=== PATIENT | female | born 1950 | race Caucasian/White ===

== ENCOUNTER → 2017-11-15 07:30 | Outpatient (CLI) | payer MEDICARE, OTHER, SELFPAY ==
--- NOTE | 2017-11-15 07:35 | HPBI_ITS ---
MAMMOGRAPHY - BILATERAL SCREENING REASON FOR EXAM: Female, 66 years old. Routine annual screening examination. PERTINENT HISTORY: Personal history of breast cancer. Prior left mastectomy and chemotherapy. Sister with breast cancer. TECHNIQUE: Digital bilateral breast dallin (3D mammographic acquisition) in the CC and MLO projections. 2-D mediolateral oblique (MLO) and craniocaudad (CC) views of both breasts were obtained. CAD: Full Field Digital Mammography with Computer Added Detection was performed. COMPARISON: Comparison is made with prior examination dated August 31, 2016. FINDINGS: Breast Composition: The breasts are heterogeneously dense, which may obscure small masses. There are no dominant masses or suspicious calcifications. No other significant abnormalities are identified. There has been no significant change since the prior study. BI/UNILAT RT SCRN W/CAD IMPRESSION: Stable bilateral screening mammogram. Yearly follow-up mammogram recommended. (A) ASSESSMENT CATEGORY: BIRADS Category 1: Negative. A letter regarding these results will be sent to the patient by the facility within 30 days. Approximately 10% of breast cancers are not detected by mammography. A normal mammogram should not delay biopsy of a clinically suspicious abnormality. [id number] Electronically Signed: Ben White MD at 8:16 EST Tel [phone], Service support ,
== END ==
PROVIDERS: Family Provider Family Medicine; PCP Family Medicine; Visit Provider Nurse Practitioner Family
DX: Z12.31 Encounter for screening mammogram for malignant neoplasm of breast (principal); Z85.3 Personal history of malignant neoplasm of breast
CPT/HCPCS: 77061; 77067; G0279

== ENCOUNTER → 2017-11-16 10:39 | Outpatient (CLI) | payer MEDICARE, OTHER, SELFPAY ==
[2017-11-16 12:34] LABS: Color, Urine Yellow (Yellow); Glucose, Dipstick Normal (Normal); Ketone-Dipstick Negative (Negative); Leukocyte Esterase-Dipstick 25 /ul (Negative); Nitrite-Dipstick Negative (Negative); Occult Blood-Urine Negative /ul (Negative); Protein-Dipstick 30 mg/dl (Negative); Urine Bilirubin Dipstick Negative (Negative); Urine Clarity Clear (Clear); Urine Urobilinogen Normal (Normal)
[2017-11-16 13:05] LABS: T4 Free Direct 1.07 ng/dL (0.76-1.46); Thyroid Stim Hormone (TSH) 2.54 uIU/mL (0.358-3.74)
== END ==
PROVIDERS: Family Provider Family Medicine; PCP Family Medicine; Visit Provider Family Medicine
DX: E03.9 Hypothyroidism, unspecified (principal); R80.9 Proteinuria, unspecified
CPT/HCPCS: 36415; 81002; 84439; 84443

== ENCOUNTER → 2018-04-26 09:12 | Outpatient (CLI) | payer MEDICARE, OTHER, SELFPAY ==
[2018-04-26 09:55] LABS: CREATININE FINGERSTICK 0.8 mg/dL (0.55-1.02); EGFR FINGERSTICK > 60.0000 mL/min (>60)
--- NOTE | 2018-04-26 10:00 | MRI_ITS ---
STUDY: BILATERAL BREAST MR WITHOUT AND WITH CONTRAST REASON FOR EXAM: Female, 67 years old. Personal history of left breast cancer status post mastectomy. BRCA positive. TECHNIQUE: Multi-sequence multi-echo imaging of both breasts was performed with a dedicated breast coil. T1-weighted and T2-weighted images were performed before the administration of contrast. T1-weighted images were also performed after the administration of 6 mL of Gadavist contrast intravenously without complications. COMPARISON: Prior breast MRI dated April 06, 2017 and unilateral right mammogram dated November 15, 2017. FINDINGS: RIGHT BREAST: The breast tissue is fatty with no background enhancement. There are no abnormal enhancing masses or areas of non-mass enhancement in the right breast. LEFT BREAST: There are changes of mastectomy with no significant abnormality otherwise identified. There are no enlarged or abnormal lymph nodes. There is no abnormality in the visualized regions of the chest or liver. MRI/Breast w/o and/or W Cont Bilat IMPRESSION: Changes of left mastectomy with no other significant abnormality. CATEGORY: BIRADS Category 2: Benign. A letter regarding these results will be sent to the patient by the facility within 30 days. Electronically Signed: Jose Mnauel Christensen MD at 10:33 EDT , Service support ,
== END ==
PROVIDERS: Family Provider Family Medicine; PCP Family Medicine; Visit Provider Internal Medicine Medical Oncology
DX: C50.912 Malignant neoplasm of unspecified site of left female breast (principal); Z15.01 Genetic susceptibility to malignant neoplasm of breast
CPT/HCPCS: 77059; A9585; A4216; C8908

== ENCOUNTER → 2018-11-16 09:53 | Outpatient (CLI) | payer MEDICARE, OTHER, SELFPAY ==
--- NOTE | 2018-11-16 10:00 | BI_ITS ---
MAMMOGRAPHY - UNILATERAL SCREENING: RIGHT BREAST REASON FOR EXAM: Female, 67 years old. Routine annual screening examination (unilateral). PERTINENT HISTORY: Personal history of breast cancer. Sister with breast cancer. Prior left mastectomy and chemotherapy. TECHNIQUE: Digital unilateral breast dallin (3D mammographic acquisition) in the CC and MLO projections. 2-D mediolateral oblique (MLO) and craniocaudad (CC) views of both breasts were obtained. CAD: Full Field Digital Mammography with Computer Added Detection was performed. COMPARISON: Comparison is made with prior study dated November 15, 2017 and August 31, 2016. FINDINGS: Breast Composition: The breasts are heterogeneously dense, which may obscure small masses. There are no dominant masses or suspicious calcifications. No other significant abnormalities are identified. There has been no significant change since the prior study. BI/UNILAT RT SCRN W/CAD IMPRESSION: Stable unilateral screening mammogram. Yearly follow-up mammogram recommended. (A) ASSESSMENT CATEGORY: BIRADS Category 1: Negative. A letter regarding these results will be sent to the patient by the facility within 30 days. Approximately 10% of breast cancers are not detected by mammography. A normal mammogram should not delay biopsy of a clinically suspicious abnormality. [id number] Electronically Signed: Ben White, at 10:57 EST , Service support ,
== END ==
PROVIDERS: Family Provider Family Medicine; PCP Family Medicine; Referring Provider Nurse Practitioner Family
DX: Z12.31 Encounter for screening mammogram for malignant neoplasm of breast (principal); Z85.3 Personal history of malignant neoplasm of breast
CPT/HCPCS: 77061; 77063; 77067; G0279

== ENCOUNTER → 2019-05-02 09:04 | Outpatient (CLI) | payer MEDICARE, OTHER, SELFPAY ==
[2018-12-01 13:03] VITALS: BMI 25.3
--- NOTE | 2019-05-02 09:16 | MRI_ITS ---
STUDY: BILATERAL BREAST MR WITHOUT AND WITH CONTRAST REASON FOR EXAM: Female, 67 years old. Personal history of left breast cancer status post mastectomy. BRCA positive. TECHNIQUE: Multi-sequence multi-echo imaging of both breasts was performed with a dedicated breast coil. T1-weighted and T2-weighted images were performed before the administration of contrast. T1-weighted images were also performed after the administration of13 mL of Dotarem contrast intravenously without complications. COMPARISON: Prior breast MRI dated April 26, 2018 and unilateral right mammogram dated November 16, 2018. FINDINGS: RIGHT BREAST: The breast tissue is fatty with no background enhancement. There are no abnormal enhancing masses or areas of non-mass enhancement in the right breast. LEFT BREAST: There are changes of mastectomy with no significant abnormality otherwise identified. There are no enlarged or abnormal lymph nodes. There is no abnormality in the visualized regions of the chest or liver. MRI/Breast Unilateral W/O and W IMPRESSION: Changes of left mastectomy with no other significant abnormality. CATEGORY: BIRADS Category 2: Benign. A letter regarding these results will be sent to the patient by the facility within 30 days. Electronically Signed: Jose Manuel Christensen MD at 16:14 EDT , Service support ,
[2019-05-02 09:36] LABS: CREATININE FINGERSTICK 0.7 mg/dL (0.55-1.02); EGFR FINGERSTICK > 60.0000 mL/min (>60)
--- NOTE | 2019-05-02 10:27 | RAD_ITS ---
STUDY: X-RAY CHEST REASON FOR EXAM: Female, 68 years old. Follow-up studies should breast cancer chest x-ray TECHNIQUE: PA and lateral views of the chest. COMPARISON: None. FINDINGS: There is postoperative change in the left axilla. There is asymmetry of the breast tissue is status post left mastectomy. There is a focal density/blunted appearance of the right side cardiophrenic angle. There is no visualized focal consolidation or pleural effusion. There is no demonstrated pleural abnormality. Normal size heart. Normal mediastinum and bebo. Normal visualized pulmonary arteries. Normal visualized aortic arch and descending thoracic aorta. There are diffuse degenerative changes of the visualized thoracic spine. Normal visualized ribs, clavicles, and shoulders. There is no demonstrated abnormality of the visualized soft tissue structures of the upper abdomen. RAD/Chest PA and Lateral IMPRESSION: Focal density, blunted appearance of the right cardiophrenic angle which may represent a cardiac fat pad versus potential for mass or potentially a hiatal hernia. Given the clinical history recommend CT scan of the chest. Postoperative changes left axilla. Status post left mastectomy. Electronically Signed: Deonna Graves MD at 21:55 EDT Tel , Service support ,
== END ==
PROVIDERS: Family Provider Family Medicine; PCP Family Medicine; Referring Provider Internal Medicine Medical Oncology; Visit Provider Internal Medicine Medical Oncology
DX: Z15.01 Genetic susceptibility to malignant neoplasm of breast (principal); Z85.3 Personal history of malignant neoplasm of breast
CPT/HCPCS: 71046; 77048; A9575; A4216; C8905

== ENCOUNTER → 2019-08-15 09:13 | Outpatient (CLI) | payer MEDICARE, OTHER, SELFPAY ==
[2019-05-15 13:29] VITALS: BMI 25.3
[2019-08-15 13:20] LABS: Vitamin D,25 Hydroxy 70.6 ng/mL (29.95-100.01)
== END ==
PROVIDERS: Family Provider Family Medicine; PCP Family Medicine; Visit Provider Family Medicine
DX: E03.9 Hypothyroidism, unspecified (principal); E55.9 Vitamin D deficiency, unspecified; Z85.3 Personal history of malignant neoplasm of breast
CPT/HCPCS: 36415; 82306; 84439; 84443

== ENCOUNTER → 2019-11-20 | Outpatient (CLI) | payer MEDICARE, OTHER, SELFPAY ==
[2019-05-15 13:29] VITALS: BMI 25.3
--- NOTE | 2019-11-20 10:19 | BI_ITS ---
MAMMOGRAPHY - UNILATERAL SCREENING: RIGHT BREAST REASON FOR EXAM: Female, 69 years old. Routine annual screening examination (unilateral). PERTINENT HISTORY: Personal history of breast cancer. Prior left mastectomy. Sister with breast cancer. TECHNIQUE: Digital unilateral breast ricki (3D mammographic acquisition) in the CC and MLO projections. 2-D mediolateral oblique (MLO) and craniocaudad (CC) views of both breasts were obtained. CAD: Full Field Digital Mammography with Computer Added Detection was performed. COMPARISON: Comparison is made with prior examination dated November 16, 2018 and November 15, 2017. FINDINGS: Breast Composition: The breasts are heterogeneously dense, which may obscure small masses. The patient is status post left mastectomy. There are no dominant masses or suspicious calcifications. No other significant abnormalities are identified. There has been no significant change since the prior study. BI/SCREEN MAMM (CAD) W/RICKI UNI R IMPRESSION: Stable unilateral screening mammogram. Yearly follow-up mammogram recommended. (A) ASSESSMENT CATEGORY: BIRADS Category 1: Negative. A letter regarding these results will be sent to the patient by the facility within 30 days. Approximately 10% of breast cancers are not detected by mammography. A normal mammogram should not delay biopsy of a clinically suspicious abnormality. [id number] Electronically Signed: Ben White, at 12:32 EST , Service support ,
== END | disposition home or self-care (01) ==
LOC: OPBI 10:11
PROVIDERS: Family Provider Family Medicine; PCP Family Medicine; Referring Provider Nurse Practitioner Family; Visit Provider Nurse Practitioner Family
DX: Z12.31 Encounter for screening mammogram for malignant neoplasm of breast (principal)
CPT/HCPCS: 77063; 77067

== ENCOUNTER → 2020-07-08 | Outpatient (CLI) | payer MEDICARE, OTHER, SELFPAY ==
[2020-01-22 10:54] VITALS: BMI 26.4
--- NOTE | 2020-07-08 09:15 | MRI_ITS ---
STUDY: BILATERAL BREAST MR WITHOUT AND WITH CONTRAST REASON FOR EXAM: Female, 69 years old. History of left breast cancer with abnormal gene mutation. Left mastectomy in 2001. Follow-up. TECHNIQUE: Multi-sequence multi-echo imaging of both breasts was performed with a dedicated breast coil. T1-weighted and T2-weighted images were performed before the administration of contrast. T1-weighted images were also performed after the administration of IV Dotarem 13ml without complications. COMPARISON: Screening mammogram dated 11/20/2019 and prior breast MRI dated 05/02/2019 FINDINGS: RIGHT BREAST: The breast tissue is scattered fibroglandular densities with no background enhancement. There are no abnormal enhancing masses or areas of non-mass enhancement in the right breast. LEFT BREAST: Left mastectomy. No enhancing masses in the residual soft tissues. There are no enlarged or abnormal lymph nodes. There is no abnormality in the visualized regions of the chest or liver. MRI/Breast Bilateral W/O and W IMPRESSION: Left mastectomy with no abnormality in the remaining soft tissues. No abnormality of the right breast. CATEGORY: BIRADS Category 2: Benign. A letter regarding these results will be sent to the patient by the facility within 30 days. Electronically Signed: Jose Manuel Christensen MD at 13:33 EDT , Service support ,
--- NOTE | 2020-07-08 09:15 | RAD_ITS ---
HISTORY: History of breast cancer. Double mastectomy 18 years ago. No trouble since. EXAM: XR Chest 2 Views: COMPARISON: May 02, 2019 FINDINGS: # of images incl. paperwork: 2 Hyperlucent left lung likely related to mastectomy is unchanged. Left chest surgical clips remain. Calcific plaque within the aortic arch is mild. Tortuosity descending thoracic aorta similar. Scoliosis to the thoracic and lumbar spine remains. Lungs are clear. Heart is not enlarged. No acute osseous pathology perceived. Pulmonary vascularity is distinct. No effusions. RAD/Chest PA and Lateral IMPRESSION: No acute cardiopulmonary disease. No change.. at 0406 Reported and signed by: Fidel De Leon MD Electronically Signed: Fidel De Leon MD at 4:05 EDT Tel , Service support ,
[2020-07-08 10:41] LABS: CREATININE FINGERSTICK < 0.6 mg/dL (0.55-1.02); EGFR FINGERSTICK > 60.0000 mL/min (>60)
== END | disposition home or self-care (01) ==
LOC: MRI 09:15
PROVIDERS: PCP Family Medicine; Referring Provider Internal Medicine Medical Oncology; Visit Provider Internal Medicine Medical Oncology
DX: Z85.3 Personal history of malignant neoplasm of breast (principal); Z15.02 Genetic susceptibility to malignant neoplasm of ovary; Z15.09 Genetic susceptibility to other malignant neoplasm; Z15.01 Genetic susceptibility to malignant neoplasm of breast; Z90.10 Acquired absence of unspecified breast and nipple; Z98.890 Other specified postprocedural states
CPT/HCPCS: 71046; 77049; A9575; C8908

== ENCOUNTER → 2020-08-14 09:32 | Outpatient (CLI) | payer MEDICARE, OTHER, SELFPAY ==
[2020-07-10 13:50] VITALS: BMI 25.4
[2020-08-14 12:52] LABS: T4 Free Direct 1.22 ng/dL (0.76-1.46); Thyroid Stim Hormone (TSH) 3.88 uIU/mL (0.358-3.74)
== END ==
PROVIDERS: PCP Family Medicine; Visit Provider Family Medicine
DX: E03.9 Hypothyroidism, unspecified (principal); E55.9 Vitamin D deficiency, unspecified
CPT/HCPCS: 36415; 82306; 84439; 84443

== ENCOUNTER → 2020-08-21 07:45 | Outpatient (CLI) | payer MEDICARE, OTHER, SELFPAY ==
[2020-07-10 13:50] VITALS: BMI 25.4
--- NOTE | 2020-08-21 07:47 | CDU_ITS ---
Reason For Study: Bilateral carotid stenosis Rt. Velocities/BP Lt. Velocities/BP Prox CCA 73.4/14.7 cm/sec. Prox CCA 69.2/17.7 cm/sec. Mid CCA 68.2/16 cm/sec. Mid CCA 68.3/19.5 cm/sec. Dist CCA 64.3/14.7 cm/sec. Dist CCA 60.5/16.8 cm/sec. Prox ICA 53.1/14.6 cm/sec. Prox ICA 56.1/13.3 cm/sec. Mid ICA 66.2/23.4 cm/sec. Mid ICA 65.7/22.1 cm/sec. Dist ICA 86/28.9 cm/sec. Dist ICA 104.7/38.9 cm/sec. Rt. ICA/CCA = 1.26. Lt. ICA/CCA = 1.53. Prox ECA 91.7/8.2 cm/sec. Prox ECA 62.2/9 cm/sec. Rt. Vert. 26.5/6.6 cm/sec. Lt. Vert. 44.7/14.5 cm/sec. Right Extracranial There is homogeneous, smooth atherosclerotic plaque noted in the right common carotid artery. There is heterogeneous, irregular atherosclerotic plaque noted in the right internal carotid artery. There is intimal thickening but no significant atherosclerotic plaque noted in the right external carotid artery. Antegrade flow is noted in the right vertebral artery. Left Extracranial There is homogeneous, smooth atherosclerotic plaque noted in the left common carotid artery. There is homogeneous, smooth atherosclerotic plaque noted in the left internal carotid artery. Left ICA distal is tortuous. There is intimal thickening but no significant atherosclerotic plaque noted in the left external carotid artery. Antegrade flow is noted in the left vertebral artery. Procedure Carotid Duplex [id number]. This is a Carotid Duplex examination using B-mode, color flow and specral Doppler. Exam performed in department. Interpretation Summary Mild (<50%) stenosis right extracranial internal carotid. Mild (<50%) stenosis left extracranial internal carotid. Flow within the vertebral arteries is antegrade bilaterally. Ordering Physician: Isra Leach Referring Physician: Isra Leach Performed By: Celina Kaur RVT
== END ==
PROVIDERS: PCP Family Medicine; Referring Provider Family Medicine; Visit Provider Family Medicine
DX: I65.23 Occlusion and stenosis of bilateral carotid arteries (principal)
CPT/HCPCS: 93880

== ENCOUNTER → 2020-09-30 15:53 | Outpatient (CLI) | payer MEDICARE, OTHER, SELFPAY ==
[2020-07-10 13:50] VITALS: BMI 25.4
[2020-09-30 17:43] LABS: Thyroid Stim Hormone (TSH) 0.73 uIU/mL (0.358-3.74)
== END ==
PROVIDERS: PCP Family Medicine; Visit Provider Family Medicine
DX: E03.9 Hypothyroidism, unspecified (principal)
CPT/HCPCS: 36415; 84443

== ENCOUNTER → 2021-07-07 10:17 | Outpatient (CLI) | payer MEDICARE, OTHER, SELFPAY ==
[2020-07-10 13:50] VITALS: BMI 25.4
--- NOTE | 2021-07-07 10:20 | MRI_ITS ---
STUDY: BILATERAL BREAST MR WITHOUT AND WITH CONTRAST REASON FOR EXAM: Female, 70 years old. History of left breast cancer status post mastectomy. Follow-up. TECHNIQUE: Multi-sequence multi-echo imaging of both breasts was performed with a dedicated breast coil. T1-weighted and T2-weighted images were performed before the administration of contrast. T1-weighted images were also performed after the administration of IV 14ml Dotarem without complications. COMPARISON: Bilateral breast MRI with contrast dated 07/08/2020 and right breast mammogram dated 11/20/2019. FINDINGS: RIGHT BREAST: The breast tissue is scattered fibroglandular densities with no background enhancement. There are no abnormal enhancing masses or areas of non-mass enhancement in the right breast. LEFT BREAST: Left mastectomy with metallic artifact at the mastectomy site. There are no enlarged or abnormal lymph nodes. There is no abnormality in the visualized regions of the chest or liver. MRI/Breast Bilateral W/O and W IMPRESSION: Changes of left mastectomy with no other abnormality. CATEGORY: BIRADS Category 2: Benign. A letter regarding these results will be sent to the patient by the facility within 30 days. Electronically Signed: Jose Manuel Christensen MD at 14:07 EDT , Service support ,
[2021-07-07 11:11] LABS: CREATININE FINGERSTICK < 0.6 mg/dL (0.55-1.02); EGFR FINGERSTICK > 60.0000 mL/min (>60)
== END ==
PROVIDERS: PCP Family Medicine; Referring Provider Internal Medicine Medical Oncology; Visit Provider Internal Medicine Medical Oncology
DX: C50.912 Malignant neoplasm of unspecified site of left female breast (principal); Z15.01 Genetic susceptibility to malignant neoplasm of breast
CPT/HCPCS: 77049; A9575; A4216; C8908

== ENCOUNTER 2021-09-01 11:08 | Emergency (ER) | payer MEDICARE, OTHER, SELFPAY ==
[2021-09-01 11:08] VITALS: BP 152/72; PULSE 69; RESP 18; TEMP 36.6; O2SAT 89; BMI 26.9
--- NOTE | 2021-09-01 11:13 | EKG12_ITS ---
Test Reason : SOB Blood Pressure : / mmHG Vent. Rate : 063 BPM Atrial Rate : 063 BPM P-R Int : 154 ms QRS Dur : 088 ms QT Int : 412 ms P-R-T Axes : 046 034 059 degrees QTc Int : 421 ms Normal sinus rhythm Poor R wave progression Nonspecific ST-segment abnormality Confirmed by JUWAN NATH, KATIE ([id number]), make up editor RACHEL HILL ([id number]) on 09/03/2021 11:41:53 AM Referred By: KIMBERLY Confirmed By:KATIE ECHEVERRIA MD
--- NOTE | 2021-09-01 12:09 | RAD_ITS ---
STUDY: X-RAY CHEST REASON FOR EXAM: Female, 70 years old. SOB TECHNIQUE: Single AP portable view of the chest. COMPARISON: Comparison is made with prior study 07/08/2020. FINDINGS: Surgical clips are seen in the left axillary region. The patient is status post left mastectomy. Bibasilar infiltrates worse in the left lung. There is no demonstrated pleural abnormality. Normal size heart. Normal mediastinum and bebo. Normal visualized pulmonary arteries. Normal visualized aortic arch and descending thoracic aorta. Normal visualized thoracic spine. Normal visualized ribs, clavicles, and shoulders. There is no demonstrated abnormality of the visualized soft tissue structures of the upper abdomen. RAD/Chest 1 View (Portable) IMPRESSION: Bibasilar infiltrates worse in the left lung. Pneumonitis associated with Covid should be ruled out. Electronically Signed: Ben White MD at 12:30 EST , Service support ,
[2021-09-01 13:01] LABS: Absolute Lymphocyte Count 0.44 X10^3/uL (0.83-4.51); Absolute Neutrophil Count 7.5 X10^3/uL (2.0-7.7); Basophil# 0.01 X10^3/uL; Basophil% 0.1 % (0-1); Hematocrit 38.6 % (37-47); Hemoglobin 12.8 g/dL (12.0-15.0); Lymphocyte # 0.44 X10^3/ul (0.83-4.51); Lymphocyte % 5.3 % (19-41); Mean Corp Hgb Conc 33.2 g/dL (32-36); Mean Corpuscular Hgb 29.4 pg (27.0-32.0); Mean Corpuscular Volume 88.7 fL (81-99); Mean Platelet Vol. 9.1 fl (6.2-12.0); Monocyte# 0.28 X10^3/uL; Monocyte% 3.4 % (0-10); NRBC Flagged by Analyzer 0 % (0-5); Neutrophil # 7.45 X10^3/uL (2.7-7.7); Neutrophil % 90.4 % (47-70); POSITIVE DIFFERENTIAL YES; Platelet Count 286 K/mm3 (150-450); RBC Distribution Width CV 13.6 % (11.6-14.6); RBC Distribution Width SD 44.5 fl (35.1-43.9); Red Blood Count 4.35 M/mm3 (4.2-5.4); White Blood Count 8.3 K/mm3 (4.4-11.0)
[2021-09-01 13:02] LABS: Differential Indicated SCAN CRITERIA MET
[2021-09-01 13:09] LABS: Anion Gap 8 (5-15); BUN 19 mg/dL (7-18); BUN/Creat Ratio 18.1 RATIO (10-20); Calcium,Total 9.1 mg/dL (8.5-10.1); Chloride 101 mmol/L (98-107); Creatinine, Serum 1.05 mg/dL (0.55-1.02); EST Glomerular Filtration Rate 55 mL/min (>60); Est Glom Filt Rate - Afr Amer 67 mL/min (>60); Estimated Creatinine Clearance 41.83 ml/min; Glucose 140 mg/dL (74-106); Potassium 3.7 mmol/L (3.5-5.1); Sodium Level 136 mmol/L (136-145)
[2021-09-01 13:19] VITALS: BP 152/63; PULSE 66; RESP 23; O2SAT 94; O2SAT 95
--- NOTE | 2021-09-01 13:50 | CT_ITS ---
STUDY: CTA CHEST REASON FOR EXAM: Female, 70 years old. Sob, covid. Left breast cancer with left mastectomy. RADIATION DOSAGE (If Supplied By Facility): CTDIvol = ( 5.42 ) mGy, DLP = ( 198.16 ) mGycm TECHNIQUE: The examination was performed with the intravenous administration of IV 100mL Isovue-370. Post-processing of the angiographic images was performed, with multiplanar reformation and 3D reconstruction. Individualized dose optimization techniques were used for this CT. COMPARISON: Comparison is made with prior chest radiograph done earlier today. FINDINGS: Normal enhancement of the main pulmonary artery and right and left pulmonary arteries. Normal enhancement of the bilateral peripheral pulmonary arteries. There is no demonstrated pulmonary embolism. Normal thoracic aorta and visualized great vessels. There is no demonstrated aortic dissection. Normal heart and pericardium. Normal mediastinum. Normal hilar regions. Normal visualized trachea and bronchi. The lungs are well expanded. Patchy infiltrate in the upper lobes. Patchy infiltrates also seen in the lower lobes as well as the right middle lobe and lingular segment of the left upper lobe. Findings are in keeping with pneumonitis associated with Covid. Normal pleura. Normal chest wall structures. There are degenerative changes of thoracic spine. Normal visualized upper abdomen. CT/CTA Chest W/WO Contrast IMPRESSION: No evidence of pulmonary embolism. Bilateral pulmonary infiltrates worse in the lower lobes. Findings are in keeping with pneumonitis associated with Covid. Electronically Signed: Ben White MD at 14:43 EST , Service support ,
--- NOTE | 2021-09-01 13:52 | EX.ED.DYSGE1 ---
HPI History of Present Illness Chief Complaint: Shortness of Breath Informant: patient Onset/Context/Timing Onset: Weeks Context: Gradual Onset Current Severity: Moderate Maximum Severity: Moderate Narrative Narrative: Patient presents via EMS secondary to increase shortness of breath. Patient was diagnosed with Covid on August 21 after being ill for a few days. She has been watching her oxygen saturations at home. The last several days they have been slowly dropping and at home today was between 79 and 83%. Here patient is between 89 and 93% at rest. She is on 2 L nasal cannula time of my exam. Patient denies chest pain. She has mild cough with occasional sputum production. [facility] Medical History Anxiety and depression Breast cancer, left Bhatia's neuroma Osteopenia Sleep apnea Home Medications levothyroxine 75 mcg PO DAILY 08/26/15 [History Last Taken Unknown] calcium carbonate 500 mg PO DAILY 12/16/16 [History Last Taken Unknown] cholecalciferol (vitamin D3) [Vitamin D3] 1,000 unit PO DAILY 12/16/16 [History Last Taken Unknown] multivitamin [Multiple Vitamins] 1 ea PO DAILY 12/16/16 [History Last Taken Unknown] dexamethasone [Decadron] 6 mg PO DAILY #9 tab 09/01/21 [Rx Last Taken Unknown] Allergy/AdvReac Type Severity Reaction Status Date / Time nickel Allergy Severe Rash Verified 07/10/21 14:32 Family History Father Heart disease Dementia Surgical History History of dilation and curettage History of hysterectomy History of mastectomy History of tonsillectomy Social History Smoking Status: Never smoker ROS ROS ED Constitutional Constitutional ED: Denies chills or fever(s) Eyes Eyes: Denies change in vision ENT ENT ED: Denies sore throat Cardiovascular Cardiovascular: Denies chest pain Respiratory/Chest Respiratory/Chest: Reports cough, dyspnea and sputum Gastrointestinal Gastrointestinal: Reports diarrhea; Denies abdominal pain, nausea or vomiting Genitourinary Genitourinary ED: Denies dysuria Musculoskeletal Musculoskeletal: Denies back pain Integumentary Denies rash Neurologic Neurologic: Reports other Details: Headache early in illness, none recently. ; Denies headache(s) or weakness Allergic/Immunologic Allergic/Immunologic ED: Denies urticaria EXAM Physical Exam Const Vital Signs: 09/01/21 11:08 09/01/21 13:19 09/01/21 14:18 Temperature 97.8 F Temperature Source Temporal Pulse Rate 69 66 68 Respiratory Rate 18 23 H 16 Respiratory Effort Short of Breath Respiratory Depth Shallow Respiratory Pattern Normal Blood Pressure 152/72 H 152/63 H 157/66 H Blood Pressure Mean 98 92 96 Pulse Ox 89 94 98 Oxygen Delivery Method Room Air Nasal Cannula Room Air Oxygen Flow Rate (L/min) 2 Fraction of Inspired Oxygen (FIO2) 100 Positive well nourished and well developed General Appearance ED: well developed HEENT Reports moist mucous membranes Eyes PERRL and EOMs intact bilaterally Neck supple Chest Wall inspection of chest normal and palpation of chest normal Resp normal respiratory effort and clear to auscultation bilaterally Cardio regular rate and regular rhythm GI normal to inspection, nondistended, normoactive bowel sounds and non-tender Palpation: soft Extremity normal to inspection Neuro oriented x3 Sensorium / Orientation: alert Psych mental status grossly normal Skin no rashes or lesions noted MDM MDM MDM Narrative Medical decision making narrative: Lab work, EKG, chest x-ray obtained per nursing protocol. CTA chest added at time of my exam. Lab Data Attestation: I reviewed the patient's lab results. Labs: Laboratory Results - last 24 hr 09/01/21 09/01/21 12:50 12:50 WBC 8.3 RBC 4.35 Hgb 12.8 Hct 38.6 MCV 88.7 MCH 29.4 MCHC 33.2 RDW Std Deviation 44.5 H RDW Coeff of Gris 13.6 Plt Count 286 MPV 9.1 Immature Gran % (Auto) 0.800 Neut % (Auto) 90.4 H Lymph % (Auto) 5.3 L Edwards % (Auto) 3.4 Eos % (Auto) 0.0 Baso % (Auto) 0.1 Absolute Neuts (auto) 7.5 Absolute Lymphs (auto) 0.44 L Nucleated RBC % 0 Sodium 136 Potassium 3.7 Chloride 101 Carbon Dioxide 27.0 Anion Gap 8 BUN 19 H Creatinine 1.05 H Estim Creat Clear Calc 41.83 Est GFR (MDRD) Af Amer 67 Est GFR (MDRD) Non-Af 55 L BUN/Creatinine Ratio 18.1 Glucose 140 H Calcium 9.1 Radiography Chest X-Ray - ED: 1 View, Read by ED Physician, Right Infiltrate and Left Infiltrate Diagnostic Testing: Clinical Impression(s) from Imaging Studies Chest X-Ray 09/01/21 12:09 IMPRESSION: Bibasilar infiltrates worse in the left lung. Pneumonitis associated with Covid should be ruled out. Electronically Signed: Ben White MD at 12:30 EST , Service support , Chest CTA 09/01/21 13:50 IMPRESSION: No evidence of pulmonary embolism. Bilateral pulmonary infiltrates worse in the lower lobes. Findings are in keeping with pneumonitis associated with Covid. Electronically Signed: Ben White MD at 14:43 EST , Service support , EKG Initial EKG: Attestation: I personally reviewed and interpreted this EKG as follows: Interpretation: Sinus Rhythm (Sinus at 63 with no acute ischemia.) Treatment and Re-Evaluation Comments:: Test results discussed with patient at bedside. Lab work unremarkable. Chest x-ray does reveal bilateral infiltrates and CTA does confirm this. No evidence of PE. Patient was ambulated on room air and did drop down to 88%. She is able to ambulate with 2 L nasal cannula without difficulty. She will be sent home with home oxygen. Patient was given dose of Decadron here and will be given prescription for 9 remaining days at home. Discharge Plan Triage Chief Complaint: Shortness of Breath ED Provider: Kassandra Munson Dx/Rx/DC Orders Clinical Impression: COVID-19 Instructions: Coronavirus Disease 2019 (COVID-19): Overview, Coronavirus Disease 2019 (COVID-19): Caring for Yourself or Others Prescriptions: New dexamethasone [Decadron] 6 mg tablet 6 mg PO DAILY Qty: 9 RF: 0 No Action levothyroxine 75 MCG tablet 75 mcg PO DAILY RF: 0 multivitamin [Multiple Vitamins] 1 EACH tablet 1 ea PO DAILY RF: 0 calcium carbonate 500 MG tablet,chewable 500 mg PO DAILY RF: 0 cholecalciferol (vitamin D3) [Vitamin D3] 1,000 UNIT tablet,chewable 1,000 unit PO DAILY RF: 0 Primary Care Provider: Isra Leach Referrals: Isra Leach MD [Primary Care Provider] - 1-2 Weeks Disposition Disposition: Home, Self Care
[2021-09-01] MEDS: dexAMETHasone 4 MG/ML Vial 6 MG IV (14:17)
[2021-09-01 14:18] VITALS: BP 157/66; PULSE 68; RESP 16; O2SAT 98
--- NOTE | 2021-09-01 15:42 | CM.ED ---
Addendum entered by Lilian Negrete 09/01/21 16:33: NANCY faxed home oxygen referral to [facility]. NANCY called Radha and left voice mail message that patient is being discharged home and related patient's home address, phone number and . NANCY advised RN Nathanael to advise patient to call [facility] for home set up. ( Of note, Radha had advised that they had concentrators). NANCY sent email to [employer]. Plan: Home with Home oxygen Lilian YOUNGBLOOD Original Note: NANCY Note Referral Source: MD Referral Reason: Home Oxygen SW was advised that patient needed home oxygen. said that patient tested COVID positive on home test on 08/21/21 which patient documented on her phone. NANCY called Radha at [facility]. Radha said that the report of covid positive, which was documented on the phone per MD, does not require the hospital to do additional testing today. NANCY updated and Straddle Carrier Operator, Moriah Tabares. Lilian YOUNGBLOOD
[2021-09-01 15:59] VITALS: O2SAT 93
[2021-09-01 16:37] VITALS: BP 157/66; PULSE 68; RESP 17; O2SAT 98
--- NOTE | 2021-09-02 18:42 | CASEMGMT ---
[facility] COVID Home O2 Follow-up: This RN CM contacted pt via phone for discharge follow-up. Pt reports to be wearing her O2 at 2l/min and her PO has been running 88-90%, instructed pt to increase her O2 to 2.5-3l/min which pt did while on the phone. Pt later reported her PO to be 89% while conversing. Pt denies any SOB at rest but states she gets a little SOB while ambulating. Pt states her O2 tubing does not reach all of the way to her bathroom so she does take it off to use the toilet. Pt states she uses the portable tank to reach her bathroom. Pt states she has additional bags of what appears to be tubing but she was unsure how to connect it. This RN CM will contact [facility] in AM to facilitate tubing for patient. Pt's daughter (vaccinated) lives in the basement and has been able to assist her as needed. Pt states she has been drinking well and that her PCP has instructed her to follow a clear liquid diet for a few days before eating solid foods. Pt's daughter has been in contact with pt's PCP. Pt did receive her decadron and started it this AM. Pt states she is remaining quarantined with 2 weeks being 12/16. Pt denies any further questions at this time. Elvia Tabares RN CM
--- NOTE | 2021-09-04 17:17 | CASEMGMT ---
Late entry for 09/03/21 1200: This [facility] CM spoke with Radah with [facility] and informed of pt's O2 tubing not reaching her bathroom. Radha states the funeral driver is delivering tanks to pt tomorrow 09/04 and she will make a note for the funeral driver to ensure pt has enough tubing to navigate her home. Elvia Tabares RN CM
--- NOTE | 2021-09-04 17:24 | CASEMGMT ---
[facility] COVID Home O2 Follow-up: This RN MESERET contacted pt via phone for follow-up. Pt states she has since been admitted to [facility] but states she is feeling better with decreased SOB. Also states her daughter was able to reposition the concentrator to be more central in her home to allow her to reach all her rooms. States she did speak with the [employer] electric train driver today and they were made aware that she was not home. Elvia Tabares RN CM
== END 2021-09-01 17:03 | disposition home or self-care (01) ==
PROVIDERS: Emergency Provider Emergency Medicine; PCP Family Medicine
DX: U07.1 COVID-19 (principal); J12.82 Pneumonia due to coronavirus disease 2019; F32.A Depression, unspecified; F41.9 Anxiety disorder, unspecified; G47.30 Sleep apnea, unspecified; M85.80 Other specified disorders of bone density and structure, unspecified site; Z79.52 Long term (current) use of systemic steroids; Z90.12 Acquired absence of left breast and nipple
CPT/HCPCS: 71045; 71275; 80048; 85025; 93005; 94760; 96374; 99284; Q9967; A4216

== ENCOUNTER → 2022-02-09 | Outpatient (CLI) | payer MEDICARE, OTHER, SELFPAY ==
[2022-02-09 12:34] LABS: Absolute Lymphocyte Count 1.45 X10^3/uL (0.83-4.51); Absolute Neutrophil Count 3.1 X10^3/uL (2.0-7.7); Basophil# 0.03 X10^3/uL; Basophil% 0.6 % (0-1); Eosinophil# 0.07 X10^3/uL; Eosinophils% 1.4 % (0-5); Hematocrit 40.5 % (37-47); Hemoglobin 13.4 g/dL (12.0-15.0); Lymphocyte # 1.45 X10^3/ul (0.83-4.51); Lymphocyte % 28.8 % (19-41); Mean Corp Hgb Conc 33.1 g/dL (32-36); Mean Corpuscular Hgb 29.4 pg (27.0-32.0); Mean Corpuscular Volume 88.8 fL (81-99); Mean Platelet Vol. 10.4 fl (6.2-12.0); Monocyte# 0.33 X10^3/uL; Monocyte% 6.6 % (0-10); NRBC Flagged by Analyzer 0 % (0-5); Neutrophil # 3.14 X10^3/uL (2.7-7.7); Neutrophil % 62.4 % (47-70); Platelet Count 236 K/mm3 (150-450); RBC Distribution Width CV 13.2 % (11.6-14.6); RBC Distribution Width SD 43.1 fl (35.1-43.9); Red Blood Count 4.56 M/mm3 (4.2-5.4)
[2022-02-09 12:56] LABS: Vitamin D,25 Hydroxy 90.4 ng/mL
[2022-02-09 13:10] LABS: Anion Gap 6 (5-15); BUN 28 mg/dL (7-18); Calcium,Total 9.4 mg/dL (8.5-10.1); Chloride 105 mmol/L (98-107); EST Glomerular Filtration Rate 58 mL/min (>60); Est Glom Filt Rate - Afr Amer 70 mL/min (>60); Glucose 99 mg/dL (74-106); Potassium 3.7 mmol/L (3.5-5.1); Sodium Level 138 mmol/L (136-145); T4 Free Direct 1.39 ng/dL (0.76-1.46); Thyroid Stim Hormone (TSH) 0.58 uIU/mL (0.358-3.74)
== END | disposition home or self-care (01) ==
LOC: MTLAB 09:28
PROVIDERS: PCP Family Medicine; Referring Provider Family Medicine; Visit Provider Family Medicine
DX: I10 Essential (primary) hypertension (principal); E03.9 Hypothyroidism, unspecified; E55.9 Vitamin D deficiency, unspecified
CPT/HCPCS: 36415; 80048; 82306; 84439; 84443; 85025

== ENCOUNTER → 2022-07-09 | Outpatient (CLI) | payer MEDICARE, OTHER, SELFPAY ==
--- NOTE | 2022-07-09 10:05 | MRI_ITS ---
STUDY: BILATERAL BREAST MR WITHOUT AND WITH CONTRAST REASON FOR EXAM: Female, 71 years old. History of left mastectomy in 2001. TECHNIQUE: Multi-sequence multi-echo imaging of both breasts was performed with a dedicated breast coil. T1-weighted and T2-weighted images were performed before the administration of contrast. T1-weighted images were also performed after the intravenous administration of 14ML IV CLARISCAN contrast without complications. COMPARISON: Prior breast MR studies with contrast dated July 07, 2021, July 08, 2020 and May 02, 2029. FINDINGS: Patient is status post left mastectomy. No abnormality at the mastectomy site. The breast tissue is There are scattered areas of fibroglandular density. with no background enhancement. There are no abnormal enhancing masses or areas of non-mass enhancement in the left breast. There are no enlarged or abnormal lymph nodes. There is no abnormality in the visualized regions of the chest or liver. MRI/Breast Unilateral W/O and W IMPRESSION: Status post left mastectomy with no other abnormality identified on the breast MRI with contrast. CATEGORY: BIRADS Category 2: Benign. A letter regarding these results will be sent to the patient by the facility within 30 days. Electronically Signed: Jose Manuel Christensen, at 7:43 EDT ,
[2022-07-09 10:45] LABS: CREATININE FINGERSTICK < 0.9 mg/dL (0.55-1.02); EGFR FINGERSTICK > 60.0000 mL/min (>60)
== END | disposition home or self-care (01) ==
LOC: MRI 10:05
PROVIDERS: PCP Family Medicine; Visit Provider Internal Medicine Medical Oncology
DX: R92.2 Inconclusive mammogram (principal); Z90.12 Acquired absence of left breast and nipple
CPT/HCPCS: 77048; A9575; A4216; C8905

== ENCOUNTER → 2023-01-20 | Outpatient (CLI) | payer MEDICARE, OTHER, SELFPAY ==
[2023-01-20 12:20] LABS: Absolute Lymphocyte Count 1.37 X10^3/uL (0.83-4.51); Basophil# 0.03 X10^3/uL; Basophil% 0.6 % (0-1); Eosinophil# 0.07 X10^3/uL; Eosinophils% 1.5 % (0-5); Hemoglobin 13.4 g/dL (12.0-15.0); Lymphocyte # 1.37 X10^3/ul (0.83-4.51); Lymphocyte % 28.5 % (19-41); Mean Corp Hgb Conc 32.7 g/dL (32-36); Mean Corpuscular Hgb 29.3 pg (27.0-32.0); Mean Corpuscular Volume 89.7 fL (81-99); Mean Platelet Vol. 10.2 fl (6.2-12.0); Monocyte# 0.37 X10^3/uL; Monocyte% 7.7 % (0-10); NRBC Flagged by Analyzer 0 % (0-5); Neutrophil # 2.95 X10^3/uL (2.7-7.7); Neutrophil % 61.5 % (47-70); Platelet Count 234 K/mm3 (150-450); RBC Distribution Width CV 13.6 % (11.6-14.6); RBC Distribution Width SD 44.3 fl (35.1-43.9); Red Blood Count 4.57 M/mm3 (4.2-5.4); White Blood Count 4.8 K/mm3 (4.4-11.0)
[2023-01-20 12:46] LABS: Vitamin D,25 Hydroxy 78.8 ng/mL
[2023-01-20 12:53] LABS: ALB/GLOB Ratio 1.1 RATIO (0.9-2.4); AST(SGOT) 22 U/L (15-37); Alanine Aminotransfer ALT/SGPT 26 U/L (13-56); Albumin, Serum 4.3 g/dL (3.2-5.0); Alkaline Phosphatase 77 U/L (45-117); Anion Gap 9 (5-15); BUN 24 mg/dL (7-18); BUN/Creat Ratio 21.6 RATIO (10-20); Calcium,Total 9.6 mg/dL (8.5-10.1); Chloride 107 mmol/L (98-107); Cholesterol 226 mg/dL (200); Creatinine, Serum 1.11 mg/dL (0.55-1.02); EST Glomerular Filtration Rate 52 mL/min (>60); Est Glom Filt Rate - Afr Amer 62 mL/min (>60); Globulin 3.9 g/dL (2.2-4.2); Glucose 110 mg/dL (74-106); High Density Lipoprotein 49 mg/dL; Potassium 4.2 mmol/L (3.5-5.1); Protein, Total 8.2 g/dL (6.4-8.2); Sodium Level 140 mmol/L (136-145); T4 Free Direct 1.55 ng/dL (0.76-1.46); Thyroid Stim Hormone (TSH) 0.67 uIU/mL (0.358-3.74); Triglycerides 108 mg/dL; Very Low Density Lipoprotein 22 mg/dL (5-40)
== END | disposition home or self-care (01) ==
LOC: BFHLAB 09:05
PROVIDERS: PCP Nurse Practitioner Family; Referring Provider Nurse Practitioner Family; Visit Provider Nurse Practitioner Family
DX: I10 Essential (primary) hypertension (principal); E78.5 Hyperlipidemia, unspecified; E03.9 Hypothyroidism, unspecified; E55.9 Vitamin D deficiency, unspecified
CPT/HCPCS: 36415; 80053; 80061; 82306; 84439; 84443; 85025

== ENCOUNTER → 2023-07-12 | Outpatient (CLI) | payer MEDICARE, OTHER, SELFPAY ==
--- NOTE | 2023-07-12 10:54 | MRI_ITS ---
STUDY: BILATERAL BREAST MR WITHOUT AND WITH CONTRAST REASON FOR EXAM: Female, 72 years old. BRCA2 gene mutation. History of breast cancer. TECHNIQUE: Multi-sequence multi-echo imaging of both breasts was performed with a dedicated breast coil. T1-weighted and T2-weighted images were performed before the administration of contrast. T1-weighted images were also performed after the intravenous administration of 15 mL of Clariscan contrast. COMPARISON: Prior breast MRI studies with contrast dated June 2022, June 2021 and June 2020. FINDINGS: RIGHT BREAST: The breast tissue is scattered fibroglandular densities with no background enhancement. There are no abnormal enhancing masses or areas of non-mass enhancement in the right breast. LEFT BREAST: Left mastectomy. No enhancing masses in the residual soft tissues. There are no enlarged or abnormal lymph nodes. There is no abnormality in the visualized regions of the chest or liver. MRI/Breast Bilateral W/O and W IMPRESSION: Left mastectomy with no abnormality in the remaining soft tissues. No abnormality of the right breast. CATEGORY: BIRADS Category 2: Benign. A letter regarding these results will be sent to the patient by the facility within 30 days. Electronically Signed: Jose Manuel Christensen MD at 14:47 EDT ,
[2023-07-12 11:41] LABS: CREATININE FINGERSTICK 1.1 mg/dL (0.55-1.02)
== END | disposition home or self-care (01) ==
LOC: MRI 10:53
PROVIDERS: PCP Nurse Practitioner Family; Referring Provider Nurse Practitioner Family; Visit Provider Nurse Practitioner Family
DX: C50.912 Malignant neoplasm of unspecified site of left female breast (principal); Z15.01 Genetic susceptibility to malignant neoplasm of breast
CPT/HCPCS: 77049; A9575; A4216; C8908

== ENCOUNTER → 2023-08-23 | Outpatient (CLI) | payer MEDICARE, OTHER, SELFPAY ==
[2023-08-23 12:31] LABS: Absolute Lymphocyte Count 1.35 X10^3/uL (0.83-4.51); Absolute Neutrophil Count 4.8 X10^3/uL (2.0-7.7); Basophil# 0.05 X10^3/uL; Basophil% 0.8 % (0-1); Eosinophil# 0.02 X10^3/uL; Eosinophils% 0.3 % (0-5); Hematocrit 41.6 % (37-47); Hemoglobin 13.4 g/dL (12.0-15.0); Lymphocyte # 1.35 X10^3/ul (0.83-4.51); Lymphocyte % 20.5 % (19-41); Mean Corp Hgb Conc 32.2 g/dL (32-36); Mean Corpuscular Hgb 30.3 pg (27.0-32.0); Mean Corpuscular Volume 94.1 fL (81-99); Mean Platelet Vol. 10.2 fl (6.2-12.0); Monocyte# 0.38 X10^3/uL; Monocyte% 5.8 % (0-10); NRBC Flagged by Analyzer 0 % (0-5); Neutrophil # 4.75 X10^3/uL (2.7-7.7); Neutrophil % 72.3 % (47-70); Platelet Count 249 K/mm3 (150-450); RBC Distribution Width CV 15.1 % (11.6-14.6); RBC Distribution Width SD 53.2 fl (35.1-43.9); Red Blood Count 4.42 M/mm3 (4.2-5.4); White Blood Count 6.6 K/mm3 (4.4-11.0)
[2023-08-23 13:04] LABS: Vitamin B12 496 pg/mL (211-911); Vitamin D,25 Hydroxy 83.7 ng/mL
[2023-08-23 13:55] LABS: ALB/GLOB Ratio 1.1 RATIO (0.9-2.4); AST(SGOT) 20 U/L (15-37); Alanine Aminotransfer ALT/SGPT 25 U/L (13-56); Albumin, Serum 4.2 g/dL (3.2-5.0); Alkaline Phosphatase 83 U/L (45-117); Anion Gap 9 (5-15); BUN 26 mg/dL (7-18); BUN/Creat Ratio 23.4 RATIO (10-20); Calcium,Total 9.5 mg/dL (8.5-10.1); Chloride 103 mmol/L (98-107); Cholesterol 219 mg/dL (200); Creatinine, Serum 1.11 mg/dL (0.55-1.02); EST Glomerular Filtration Rate 51 mL/min (>60); Est Glom Filt Rate - Afr Amer 62 mL/min (>60); Ferritin 70 ng/mL (8-252); Globulin 3.8 g/dL (2.2-4.2); Glucose 134 mg/dL (74-106); High Density Lipoprotein 54 mg/dL; Iron 71 ug/dL (50-170); Potassium 4.1 mmol/L (3.5-5.1); Sodium Level 137 mmol/L (136-145); T4 Free Direct 1.44 ng/dL (0.76-1.46); Thyroid Stim Hormone (TSH) 0.42 uIU/mL (0.358-3.74); Triglycerides 95 mg/dL; Very Low Density Lipoprotein 19 mg/dL (5-40)
== END | disposition home or self-care (01) ==
LOC: BFHLAB 09:02
PROVIDERS: PCP Nurse Practitioner Family; Visit Provider Nurse Practitioner Family
DX: I10 Essential (primary) hypertension (principal); R73.01 Impaired fasting glucose; E03.9 Hypothyroidism, unspecified; E78.5 Hyperlipidemia, unspecified; E55.9 Vitamin D deficiency, unspecified; D51.8 Other vitamin B12 deficiency anemias; E61.1 Iron deficiency
CPT/HCPCS: 36415; 80053; 80061; 82306; 82607; 82728; 83540; 84439; 84443; 85025

== ENCOUNTER → 2023-09-30 | Outpatient (CLI) | payer MEDICARE, OTHER, SELFPAY ==
--- NOTE | 2023-09-30 08:29 | BD_ITS ---
STUDY: DUAL ENERGY X-RAY ABSORPTIOMETRY / DXA REASON FOR EXAM: Female, 72 years old. M85.89 TECHNIQUE: Bone Mineral Density (BMD) measurements of lumbar spine and bilateral hips were obtained. COMPARISON: Comparison is made with prior study dated February 20, 2014. FINDINGS: Lumbar Spine (L1-L4): g/cm2 (1.139) / T-score (0.8) / Z-score (3.1) Findings are suggestive of normal bone density with a low fracture risk. Left Femur Total: g/cm2 (0.808) / T-score (-1.1) / Z-score (0.5) Left Femoral Neck: g/cm2 (0.654) / T-score (-1.8) / Z-score (0.1) Right Femur Total: g/cm2 (0.850) / T-score (-0.8) / Z-score (0.9) Right Femoral Neck: g/cm2 (0.683) / T-score (-1.5) / Z-score (0.4) The T-Scores on the most recent prior examination were: Lumbar Spine (L1-L4): There has been improvement of bone density since the previous examination. Left Femur Total: which represents a worsening of 0.7%. Right Femur Total: which represents an improvement of 2.5%. BD/Dexa Bone Density Study IMPRESSION: The patient is considered osteopenic as outlined below according to World Donovan Organization (WHO) criteria with a moderate fracture risk. There has been improvement of bone density since the previous examination. Reference Information: The T-score is the number of standard deviations above or below the standard which is normal for young adults at their peak bone mineral density. The World Health Organization (WHO) interprets the T-scores as follows: Above -1 Normal bone density Between -1 and -2.5 Osteopenia Equal to / or below -2.5 Osteoporosis As a practical clinical guideline, osteopenia may be graded as follows: Mild -1 through -1.5 Moderate -1.6 through -2.0 Severe -2.1 through -2.4 The Z-score is the number of standard deviations above or below age-matched controls. A Z-score of less than -1.5 would be considered abnormal. References: 1. NIH Osteoporosis and Related Bone Diseases www osteo.org 2. International Society for Clinical Densitometry www iscd.org 3. National Osteoporosis Foundation www nof.org Electronically Signed: Ben White MD at 15:33 EST ,
--- OUTSIDE RECORDS SUMMARY | 2023-09-30 08:44 | XMS RPT_ITS | CCD ---
Author Name Unknown Address [address] [place] [address] Organization [facility] Care Team Providers Care Animal Rehabilitator Name Role Phone SHERLYN SIDDIQUI Attending MARCOS Puente Primary Care Unavailable SHERLYN SIDDIQUI Referring MARCOS Puente Primary Care Unavailable STEFANIE CASAS Admitting TANNER Forbes Attending Unavailable Results Test Name Value Interpretation Reference Range Facil ity Encounters Encounter Date Encounter Type Care Provider Facility Start: 09-04-2021 End: 09-07-2021 Evaluation and management of inpatient [facility] Start: 09-04-2021 End: 09-04-2021 Emergency department patient visit [facility] Payers Date Payer Category Payer Unknown [id number] 2016 Medicare [id number] 1950 Unknown [id number] 1950 Unknown [id number]. [id number] Summary Purpose Family History No Family History Records FoundNo Family History Records Found Advance Directives No Advanced Directives Records FoundNo Advanced Directives Records Found Additional Source Comments INFORMATION SOURCE (unrecogn ized section and content) DATE CREATED AUTHOR AUTHOR'S BEREKET ATION 09/27/2021 [facility] FOR RECORDS PERTAINING TO PATIENTS WHO ARE OR HAVE BEEN ENROLLED IN A CHEMICAL DEPENDENCY/SUBSTANCEABUSE PROGRAM, SOME INFORMATION MAY BE OMITTED. This clinical summary was aggregated from multiple sources. Caution should be exercised in using it in the provision of clinical care. This summary normalizes information from multiple sources, and as a consequence, information in this document may materially change the coding, format and clinical context of patient data. In addition, data may be omitted in some cases. CLINICAL DECISIONS SHOULD BE BASED ON THE PRIMARY CLINICAL RECORDS. [facility]. provides no warranty or guarantee of the accuracy or completeness of information in this document.
== END | disposition home or self-care (01) ==
LOC: OPBD 08:23
PROVIDERS: PCP Nurse Practitioner Family; Referring Provider Nurse Practitioner Family; Visit Provider Nurse Practitioner Family
DX: M85.89 Other specified disorders of bone density and structure, multiple sites (principal)
CPT/HCPCS: 77080

== ENCOUNTER 2023-10-13 08:17 | Day surgery (SDC) | payer OTHER, MEDICARE, SELFPAY ==
--- OUTSIDE RECORDS SUMMARY | 2023-10-13 08:32 | XMS RPT_ITS | CCD ---
Author Name Unknown Address [address] [place] [address] Organization [facility] Care Team Providers Care Voip Network Technician Name Role Phone SHERLYN SIDDIQUI Attending MARCOS Puente Primary Care Unavailable SHERLYN SIDDIQUI Referring MARCOS Puente Primary Care Unavailable STEFANIE CASAS Admitting TANNER Forbes Attending Unavailable Results Test Name Value Interpretation Reference Range Facil ity Encounters Encounter Date Encounter Type Care Provider Facility Start: 09-04-2021 End: 09-07-2021 Evaluation and management of inpatient [facility] Start: 09-04-2021 End: 09-04-2021 Emergency department patient visit [facility] Payers Date Payer Category Payer Unknown [id number] 2016 Medicare [id number] 1950 Unknown [id number] 1950 Unknown [id number]. [id number] Summary Purpose Family History No Family History Records FoundNo Family History Records Found Advance Directives No Advanced Directives Records FoundNo Advanced Directives Records Found Additional Source Comments INFORMATION SOURCE (unrecogn ized section and content) DATE CREATED AUTHOR AUTHOR'S BEREKET ATION 09/27/2021 [facility] FOR RECORDS PERTAINING TO PATIENTS WHO ARE [...] BE BASED ON THE PRIMARY CLINICAL RECORDS. [employer] [facility]. provides no warranty or guarantee of the accuracy or completeness of information in this document.
[2023-10-13] MEDS: Lactated Ringers 1,000 ML 15 ML IV (08:45)
[2023-10-13 08:49] VITALS: BP 149/90; PULSE 81; RESP 16; TEMP 37.2; O2SAT 99; BMI 28.9
--- NOTE | 2023-10-13 08:49 | HP.PCM_ITS ---
HPI - General General Date of Service: 10/13/23 HPI Narrative RAO PANTOJA, is a 72 F who presents for screening colonoscopy. patient's last colonoscopy was in 2012 negative per patient. Patient denies any chronic abdominal pain/nausea/vomiting/reflux. Patient has bowel movements daily denies any blood. Patient denies any family history of colon cancer. [facility] Medical History (Updated 10/07/23 @ 14:41 by Haylee Dumont) Anxiety and depression Arthritis Breast cancer, left Cancer Essential (primary) hypertension Hypothyroid Bhatia's neuroma Non-smoker FLACO (obstructive sleep apnea) Osteopenia Sleep apnea Syncope Thyroid disease Wears glasses Home Medications calcium carbonate 500 mg calcium (1,250 mg) chewable tablet 500 mg PO DAILY 12/16/16 [History Last Taken Unknown] multivitamin (Multiple Vitamins tablet) 1 ea PO DAILY 12/16/16 [History Last Taken Unknown] lisinopril 10 mg tablet 20 mg PO DAILY 08/05/22 [History Last Taken 10/13/23] levothyroxine 75 mcg tablet 88 mcg PO DAILY 07/20/23 [History Last Taken 10/13/23] coenzyme Q10 100 mg capsule (Co Q-10) 100 mg PO DAILY 09/02/23 [History Last Taken Unknown] melatonin 10 mg capsule 10 mg PO HS PRN sleep 09/02/23 [History Last Taken Unknown] hydrochlorothiazide 12.5 mg capsule 12.5 mg PO DAILY 10/07/23 [History Last Taken 10/13/23] vitamin D3 25 mcg (1,000 unit)-vit K2 90 mcg disintegrating tablet (D3 Plus K2 Dots) 1 tab PO DAILY 10/07/23 [History Last Taken Unknown] Allergy/AdvReac Type Severity Reaction Status Date / Time nickel Allergy Severe Rash Verified 10/13/23 08:46 propoxyphene Allergy Vomiting Verified 10/13/23 08:46 [From Darvocet-N 100] Family History (Updated 09/02/23 @ 11:35 by Lilliam Rosas) Father Heart disease Dementia Colon polyps Surgical History History of dilation and curettage History of hysterectomy History of mastectomy History of tonsillectomy Hx of colonoscopy Social History (Updated 09/02/23 @ 11:35 by Lilliam Rosas) household members: other details: current occupational status: retired Smoking Status: Never smoker Past Medical/Surgical History Planned Operation Planned Operative Procedure/s: CSCOPE Previous Hospitalizations/Surgeries HX Hospitalizations: No Any Problems With Anesthesia: No You/Your Family Experience Fever (Hyperthermia) With Anes: No Cholinesterase deficiency: No Cardiovascular Hx of Irregular Heartbeat and/or Afib: No Hx Heart Attack: No Hx Congestive Heart Failure: No Hx Hypertension: Yes (CONTROLLED WITH MED) Hx Pacemaker: No Respiratory Hx Chronic Obstructive Pulmonary Disease (COPD): No Hx Asthma: No Hx Emphysema: No Hx Sleep Apnea: Yes (USES MOUTH APPLIANCE) CPAP: No BIPAP: No Hx Respiratory Tract Infection/Cold (presently): No Result (for STOP score): Positive Smoking Status: Never smoker Gastrointestinal Hx Ulcer: No Neurological Hx Seizures: No Hx Head/Neck Injury: No Hx Headaches: No Hx Back Injury/Pain: No Does patient have nerve stimulator: No Allergies nickel Allergy (Severe, Verified 10/13/23 08:46) Rash propoxyphene [From Darvocet-N 100] Allergy (Verified 10/13/23 08:46) Vomiting Discharge Is Pt Admitted From a [facility], or a Senior Living: No After D/C, Where Do you Plan to Go: Return Home Physical Exam Const alert, oriented x3 and no apparent distress HEENT normocephalic and head/scalp atraumatic Resp normal respiratory effort Cardio regular rate GI soft to palpation and non-tender; Negative for non-distended Palpation: Negative for guarding Extremity no clubbing, cyanosis or edema Skin no rashes or lesions noted Neuro CN's II-XII intact bilaterally Psych mental status grossly normal Assessment & Plan Assessment/Plan (1) Encounter for screening for malignant neoplasm of colon: Surgery Risks - Colonoscopy I discussed with the patient the risks of the procedure: Yes Risks Include but are not Limited To: Risks include but are not limited to: Bleeding, perforation requiring further surgery, inability to complete colonoscopy requiring barium enema.
--- NOTE | 2023-10-13 09:45 | COLBX_PTH ---
PATHOLOGY RESULTS PATIENT: RAO PANTOJA LOC: EN U#:[id number] AGE/SX: 72/F ROOM: RE10/13/[address]: Dr. Itzel Botello MD : 1950 BED: DIS: 10/13/2023 SPEC #: [id number] RECD: 10/13/23 12:33 STATUS: ELVIS SIMONA #: [id number] MICHAEL: 10/13/23 09:[address]: Itzel Botello DEPT: SURGICAL PATHOLOGY RECD BY: Cecy Zhao ENTERED: 10/13/23 12:34 SP TYPE: COLON BX Tissues: Ascending colon Procedures: Surgery Specimen Level IV HEADER OPERATION: Colonoscopy - open access with biopsy and polypectomy PRE-OP DIAGNOSIS: Screening TISSUE SUBMITTED: Ascending colon polyp biopsy and polypectomy MICROSCOPIC DIAGNOSIS Ascending colon polyp, biopsy: Fragments of tubular adenoma. AM:yvrose 10/14/2023 MICROSCOPIC DESCRIPTION Slides are reviewed. GROSS DESCRIPTION Received in fixative is one container labeled with the patient's name and designated ascending colon polyp biopsy. The specimen consists of multiple irregular fragments of light cates soft tissue that in aggregate measure 0.6 x 0.5 x 0.1 cm. The specimen is totally submitted in one cassette. / SJ:yvrose 10/13/2023 TC:5 CPT: 25556
[2023-10-13 10:05] VITALS: BP 108/60; BP 149/90; PULSE 64; RESP 16; TEMP 36.7; O2SAT 97
--- NOTE | 2023-10-13 10:08 | OP.COLON_ITS ---
Patient Name: Archana Marshall Procedure Date: 10/13/2023 9:36 AM Date of : 1950 Age: 72 Procedure: Colonoscopy Indications: Screening for colorectal malignant neoplasm Providers: Itzel Botello MD Referring MD: Itzel Botello MD Medicines: Monitored Anesthesia Care Patient Profile: This is a 72 year old female. Last Colonoscopy: more than 10 years ago. Complications: No immediate complications. Procedure: Pre-Anesthesia Assessment: - Prior to the procedure, a History and Physical was performed, and patient medications and allergies were reviewed. The patient's tolerance of previous anesthesia was also reviewed. The risks and benefits of the procedure and the sedation options and risks were discussed with the patient. All questions were answered, and informed consent was obtained. Prior Anticoagulants: The patient has taken no anticoagulant or antiplatelet agents. ASA Grade Assessment: Per anesthesia. After reviewing the risks and benefits, the patient was deemed in satisfactory condition to undergo the procedure. After I obtained informed consent, the scope was passed under direct vision. Throughout the procedure, the patient's blood pressure, pulse, and oxygen saturations were monitored continuously. The colonoscope was introduced through the anus and advanced to the cecum, identified by the appendiceal orifice, ileocecal valve and palpation. The colonoscopy was performed without difficulty. The patient tolerated the procedure well. The quality of the bowel preparation was good. Scope In: 9:44:34 AM Scope Withdrawal Time 0 hours 11 minutes 12 seconds Scope Out: 10:01:30 AM Total Procedure Duration Time 0 hours 16 minutes 56 seconds Findings: Hemorrhoids were found on perianal exam. A less than 5 mm polyp was found in the ascending colon. The polyp was sessile. The polyp was removed with a cold biopsy forceps. Resection and retrieval were complete. The exam was otherwise without abnormality. Non-bleeding internal hemorrhoids were found. The hemorrhoids were Grade I (internal hemorrhoids that do not prolapse). Impression: - Hemorrhoids found on perianal exam. - One less than 5 mm polyp in the ascending colon, removed with a cold biopsy forceps. Resected and retrieved. - The examination was otherwise normal. - Non-bleeding internal hemorrhoids. Recommendation: - Discharge patient to home. - Resume previous diet. - Continue present medications. - Await pathology results. - Repeat colonoscopy in 5 years for surveillance based on pathology results. Procedure Code(s): --- Professional --- 82724, PT, Colonoscopy, flexible; with biopsy, single or multiple Diagnosis Code(s): --- Professional --- Z12.11, Encounter for screening for malignant neoplasm of colon K64.9, Unspecified hemorrhoids D12.2, Benign neoplasm of ascending colon CPT copyright 2021 [employer]. All rights reserved. The codes documented in this report are preliminary and upon electronic service technician review may be revised to meet current compliance requirements. MD Itzel Mcfarland MD 10/13/2023 10:07:43 AM This report has been signed electronically. Number of Addenda: 0 Note Initiated On: 10/13/2023 9:36 AM
--- NOTE | 2023-10-13 10:08 | OP.CCLET_ITS ---
10/13/2023 Dimple Etienne Re : Colonoscopy procedure for Archana Marshall Dear Harmeet This procedure was performed on Friday, October 13, 2023. My impressions and recommendations are as follows: Impressions : - Hemorrhoids found on perianal exam. - One less than 5 mm polyp in the ascending colon, removed with a cold biopsy forceps. Resected and retrieved. - The examination was otherwise normal. - Non-bleeding internal hemorrhoids. Recommendations : - Discharge patient to home. - Resume previous diet. - Continue present medications. - Await pathology results. - Repeat colonoscopy in 5 years for surveillance based on pathology results. My findings are described in the full procedure note, which is enclosed. If I can be of further assistance, please feel free to contact me at Doctor phone number(s): , Work: . Sincerely, MD Itzel Mcfarland MD 10/13/2023 10:07:43 AM This report has been signed electronically.
[2023-10-13 10:10] VITALS: BP 105/67; BP 149/90; PULSE 64; RESP 16; O2SAT 96
[2023-10-13 10:15] VITALS: BP 119/76; BP 149/90; PULSE 68; RESP 16; O2SAT 97
[2023-10-13 10:21] VITALS: BP 116/71; BP 149/90; PULSE 67; RESP 16; TEMP 37; O2SAT 97
[2023-10-13 10:35] VITALS: BP 149/90
== END 2023-10-13 10:45 | disposition home or self-care (01) ==
LOC: EN 08:20 → AC 08:20
PROVIDERS: PCP Nurse Practitioner Family; Referring Provider Nurse Practitioner Family; Visit Provider Surgery
PROC: 0DJD8ZZ Inspection of Lower Intestinal Tract, Via Natural or Artificial Opening Endoscopic (ICD-10-PCS; CPT 45378; principal; 2023-10-13 09:40)
DX: Z12.11 Encounter for screening for malignant neoplasm of colon (principal); I10 Essential (primary) hypertension; K64.0 First degree hemorrhoids; Z79.899 Other long term (current) drug therapy; E03.9 Hypothyroidism, unspecified; Z79.890 Hormone replacement therapy; K64.4 Residual hemorrhoidal skin tags; D12.2 Benign neoplasm of ascending colon
CPT/HCPCS: 45380; 88305; J7120; J2405

== ENCOUNTER → 2024-02-21 | Outpatient (CLI) | payer MEDICARE, OTHER, SELFPAY ==
[2024-02-21 12:54] LABS: Absolute Lymphocyte Count 1.56 X10^3/uL (0.83-4.51); Basophil# 0.05 X10^3/uL; Eosinophil# 0.08 X10^3/uL; Eosinophils% 1.6 % (0-5); Hematocrit 39.9 % (37-47); Hemoglobin 13.3 g/dL (12.0-15.0); Lymphocyte # 1.56 X10^3/ul (0.83-4.51); Lymphocyte % 30.6 % (19-41); Mean Corp Hgb Conc 33.3 g/dL (32-36); Mean Corpuscular Hgb 30.6 pg (27.0-32.0); Mean Corpuscular Volume 91.7 fL (81-99); Mean Platelet Vol. 10.1 fl (6.2-12.0); Monocyte# 0.39 X10^3/uL; Monocyte% 7.7 % (0-10); NRBC Flagged by Analyzer 0 % (0-5); Neutrophil % 58.9 % (47-70); Platelet Count 262 K/mm3 (150-450); RBC Distribution Width CV 14.6 % (11.6-14.6); RBC Distribution Width SD 48.6 fl (35.1-43.9); Red Blood Count 4.35 M/mm3 (4.2-5.4); White Blood Count 5.1 K/mm3 (4.4-11.0)
[2024-02-21 13:12] LABS: Vitamin D,25 Hydroxy 93.4 ng/mL
[2024-02-21 14:11] LABS: ALB/GLOB Ratio 1.1 RATIO (0.9-2.4); AST(SGOT) 19 U/L (15-37); Alanine Aminotransfer ALT/SGPT 18 U/L (13-56); Albumin, Serum 4.1 g/dL (3.2-5.0); Alkaline Phosphatase 69 U/L (45-117); Anion Gap 8 (5-15); BUN 19 mg/dL (7-18); BUN/Creat Ratio 18.3 RATIO (10-20); Calcium,Total 9.9 mg/dL (8.5-10.1); Chloride 106 mmol/L (98-107); Cholesterol 239 mg/dL (200); Creatinine, Serum 1.04 mg/dL (0.55-1.02); EST Glomerular Filtration Rate 55 mL/min (>60); Est Glom Filt Rate - Afr Amer 67 mL/min (>60); Globulin 3.6 g/dL (2.2-4.2); Glucose 115 mg/dL (74-106); High Density Lipoprotein 54 mg/dL; Potassium 4.1 mmol/L (3.5-5.1); Protein, Total 7.7 g/dL (6.4-8.2); Sodium Level 139 mmol/L (136-145); T4 Free Direct 1.59 ng/dL (0.76-1.46); Thyroid Stim Hormone (TSH) 0.85 uIU/mL (0.358-3.74); Triglycerides 99 mg/dL; Very Low Density Lipoprotein 20 mg/dL (5-40)
== END | disposition home or self-care (01) ==
LOC: BFHLAB 08:45
PROVIDERS: PCP Nurse Practitioner Family; Referring Provider Nurse Practitioner Family; Visit Provider Nurse Practitioner Family
DX: E03.9 Hypothyroidism, unspecified (principal); I10 Essential (primary) hypertension; E78.5 Hyperlipidemia, unspecified; U07.1 COVID-19; J12.82 Pneumonia due to coronavirus disease 2019; E55.9 Vitamin D deficiency, unspecified
CPT/HCPCS: 36415; 80053; 80061; 82306; 84439; 84443; 85025

== ENCOUNTER → 2024-06-21 | Outpatient (CLI) | payer MEDICARE, OTHER, SELFPAY ==
--- NOTE | 2024-06-21 11:09 | MRI_ITS ---
STUDY: BILATERAL BREAST MR WITHOUT AND WITH CONTRAST REASON FOR EXAM: Female, 73 years old. BRCA2 gene positive mutation. Follow-up. Status post left mastectomy. TECHNIQUE: Multi-sequence multi-echo imaging of both breasts was performed with a dedicated breast coil. T1-weighted and T2-weighted images were performed before the administration of contrast. T1-weighted images were also performed after the intravenous administration of 13 cc of Clariscan contrast. COMPARISON: Prior breast MRI studies dated July 12, 2023, July 09, 2022 and July 07, 2021 FINDINGS: RIGHT BREAST: The breast tissue is scattered fibroglandular densities with no background enhancement. There are no abnormal enhancing masses or areas of non-mass enhancement in the right breast. LEFT BREAST: Left mastectomy. No enhancing masses in the residual soft tissues. There are no enlarged or abnormal lymph nodes. There is no abnormality in the visualized regions of the chest or liver. MRI/Breast Bilateral W/O and W IMPRESSION: Left mastectomy with no abnormality in the remaining soft tissues. No abnormality of the right breast. CATEGORY: BIRADS Category 2: Benign. A letter regarding these results will be sent to the patient by the facility within 30 days. Electronically Signed: Jose Manuel Christensen MD at 9:37 EDT ,
[2024-06-21 11:40] LABS: CREATININE FINGERSTICK < 1.0 mg/dL (0.55-1.02); EGFR FINGERSTICK > 60.0000 mL/min (>60)
== END | disposition home or self-care (01) ==
LOC: MRI 11:04
PROVIDERS: PCP Nurse Practitioner Family; Referring Provider Internal Medicine Medical Oncology; Visit Provider Internal Medicine Medical Oncology
DX: Z01.812 Encounter for preprocedural laboratory examination (principal); C50.912 Malignant neoplasm of unspecified site of left female breast; Z15.01 Genetic susceptibility to malignant neoplasm of breast; Z15.02 Genetic susceptibility to malignant neoplasm of ovary; Z15.09 Genetic susceptibility to other malignant neoplasm
CPT/HCPCS: 77049; A9575; A4216; C8908

== ENCOUNTER → 2024-08-25 | Outpatient (CLI) | payer MEDICARE, OTHER, SELFPAY ==
[2024-08-25 09:59] LABS: Absolute Lymphocyte Count 1.52 X10^3/uL (0.83-4.51); Basophil# 0.05 X10^3/uL; Basophil% 0.8 % (0-1); Eosinophil# 0.08 X10^3/uL; Eosinophils% 1.3 % (0-5); Hematocrit 40.6 % (37-47); Hemoglobin 13.4 g/dL (12.0-15.0); Lymphocyte # 1.52 X10^3/ul (0.83-4.51); Lymphocyte % 25.2 % (19-41); Mean Corpuscular Hgb 29.7 pg (27.0-32.0); Mean Platelet Vol. 9.6 fl (6.2-12.0); Monocyte% 6.6 % (0-10); NRBC Flagged by Analyzer 0 % (0-5); Neutrophil # 3.95 X10^3/uL (2.7-7.7); Neutrophil % 65.8 % (47-70); Platelet Count 233 K/mm3 (150-450); RBC Distribution Width CV 13.7 % (11.6-14.6); Red Blood Count 4.51 M/mm3 (4.2-5.4)
[2024-08-25 10:24] LABS: Vitamin D,25 Hydroxy 116.8 ng/mL
[2024-08-25 11:02] LABS: ALB/GLOB Ratio 1.2 RATIO (0.9-2.4); AST(SGOT) 17 U/L (15-37); Alanine Aminotransfer ALT/SGPT 21 U/L (13-56); Albumin, Serum 4.3 g/dL (3.2-5.0); Alkaline Phosphatase 82 U/L (45-117); Anion Gap 7 (5-15); BUN 23 mg/dL (7-18); BUN/Creat Ratio 20.9 RATIO (10-20); Calcium,Total 9.7 mg/dL (8.5-10.1); Chloride 104 mmol/L (98-107); Cholesterol 303 mg/dL (200); EST Glomerular Filtration Rate 52 mL/min (>60); Est Glom Filt Rate - Afr Amer 63 mL/min (>60); Globulin 3.6 g/dL (2.2-4.2); Glucose 112 mg/dL (74-106); High Density Lipoprotein 62 mg/dL; Potassium 3.6 mmol/L (3.5-5.1); Protein, Total 7.9 g/dL (6.4-8.2); Sodium Level 139 mmol/L (136-145); T4 Free Direct 1.08 ng/dL (0.76-1.46); Triglycerides 129 mg/dL; Very Low Density Lipoprotein 26 mg/dL (5-40)
== END | disposition home or self-care (01) ==
LOC: MTLAB 09:09
PROVIDERS: PCP Nurse Practitioner Family; Referring Provider Nurse Practitioner Family; Visit Provider Nurse Practitioner Family
DX: I10 Essential (primary) hypertension (principal); E03.9 Hypothyroidism, unspecified; E78.5 Hyperlipidemia, unspecified; E55.9 Vitamin D deficiency, unspecified
CPT/HCPCS: 36415; 80053; 80061; 82306; 84439; 84443; 85025

== ENCOUNTER → 2025-02-19 | Outpatient (CLI) | payer MEDICARE, OTHER, SELFPAY ==
[2025-02-19 12:59] LABS: ALB/GLOB Ratio 1.6 RATIO (0.9-2.4); AST(SGOT) 20 U/L (<=31); Alanine Aminotransfer ALT/SGPT 12 U/L (<=34); Albumin, Serum 4.6 g/dL (3.4-4.8); Alkaline Phosphatase 67 U/L (35-104); Anion Gap 13 (5-15); BUN 27 mg/dL (4-19); BUN/Creat Ratio 29.8 RATIO (10-20); Calcium,Total 9.6 mg/dL (7.6-11.0); Carbon Dioxide 22.5 mmol/L (21.0-32.0); Chloride 104 mmol/L (98-108); Cholesterol 244 mg/dL (<=200); EST Glomerular Filtration Rate 68 (>60); Globulin 2.9 g/dL (2.2-4.2); Glucose 93 mg/dL (70-99); High Density Lipoprotein 48 mg/dL; Potassium 4.4 mmol/L (3.3-5.1); Protein, Total 7.5 g/dL (5.9-8.4); Sodium Level 139 mmol/L (133-145); Total Bilirubin 0.77 mg/dL (0.00-1.30); Triglycerides 80 mg/dL
[2025-02-19 13:00] LABS: Low Density Lipoprotein Calc. 180 mg/dL; Thyroid Stim Hormone (TSH) 0.558 uIU/mL (0.300-4.200); Very Low Density Lipoprotein 16 mg/dL (5-40); Vitamin D,25 Hydroxy 73.4 ng/mL (30-100); cholesterol:hdl ratio screen 5.06
[2025-02-19 13:57] LABS: Absolute Neutrophil Count 3.6 X10^3/uL (2.0-7.7); Basophil# 0.04 X10^3/uL; Basophil% 0.8 % (0-1); Eosinophil# 0.02 X10^3/uL; Eosinophils% 0.4 % (0-5); Hematocrit 38.7 % (37-47); Hemoglobin 13.2 g/dL (12.0-15.0); Lymphocyte % 24.8 % (19-41); Mean Corp Hgb Conc 34.1 g/dL (32-36); Mean Corpuscular Hgb 30.7 pg (27.0-32.0); Mean Platelet Vol. 10.7 fl (6.2-12.0); Monocyte# 0.32 X10^3/uL; Monocyte% 6.1 % (0-10); NRBC Flagged by Analyzer 0 % (0-5); Neutrophil # 3.56 X10^3/uL (2.7-7.7); Neutrophil % 67.7 % (47-70); Platelet Count 219 K/mm3 (150-450); RBC Distribution Width CV 13.4 % (11.6-14.6); White Blood Count 5.3 K/mm3 (4.4-11.0)
== END | disposition home or self-care (01) ==
LOC: MTLAB 09:39
PROVIDERS: PCP Nurse Practitioner Family; Referring Provider Nurse Practitioner Family; Visit Provider Nurse Practitioner Family
DX: I10 Essential (primary) hypertension (principal); E03.9 Hypothyroidism, unspecified; E78.5 Hyperlipidemia, unspecified; E55.9 Vitamin D deficiency, unspecified
CPT/HCPCS: 36415; 80053; 80061; 82306; 84439; 84443; 85025

== ENCOUNTER 2025-04-21 09:24 | Emergency (ER) | payer MEDICARE, OTHER, SELFPAY ==
[2025-04-21] VITALS (8 sets, daily range): BP systolic 105–144; BP diastolic 45–78; PULSE 51–67; RESP 15–18; TEMP 36.3–37.1; O2SAT 98–100; BMI 26.9
--- NOTE | 2025-04-21 09:39 | RAD_ITS ---
PROCEDURE: CHEST PA AND LATERAL 04/21/2025 REASON FOR EXAM: SYNCOPE TECHNIQUE: CHEST PA AND LATERAL COMPARISON: 09/01/2021 FINDINGS: Hardware: EKG leads overlie the chest Heart: The heart size is normal. Mediastinum: The mediastinal contour is unremarkable. Lungs: The lungs are clear. Bones: Degenerative changes are identified within the thoracic spine. RAD/Chest PA and Lateral IMPRESSION: No acute pulmonary process Reading Location: [id number]
--- NOTE | 2025-04-21 09:47 | EX.ED.DYSGE1 ---
HPI History of Present Illness Chief Complaint: Syncope Narrative Narrative: Patient is a 74-year-old female with past medical history of hypothyroidism, hypertension, FLACO, anxiety, depression, breast cancer who presented to the emergency department the chief complaint of passing out. Patient states that she was donating blood this morning and notes that she was sitting at the table after donating eating and drinking and noted that she became very lightheaded. She states that this is not out of the ordinary for her to do this after donating. She states that she was told that she passed out however she states that she could hear everybody talking and she states that she felt like she was answering their questions. Patient states that shortly after this episode this happened again where she became very lightheaded therefore they called EMS to have her brought here for further evaluation management. Per EMS when they arrived she was pale however they note that she is looking better as they arrived here to the emergency department. Patient denies any blood thinning medications denies hitting her head. Patient states that she feels back to her baseline and has no complaints at this point time. [facility] Medical History Wears glasses Cancer Arthritis Thyroid disease Syncope Non-smoker FLACO (obstructive sleep apnea) Essential (primary) hypertension Hypothyroid Bhatia's neuroma Sleep apnea Osteopenia Anxiety and depression Breast cancer, left Home Medications ?Medication ?Instructions ?Recorded ?Last Taken ?Type calcium carbonate 500 mg PO DAILY 12/16/16 Unknown History multivitamin (Multiple Vitamins 1 ea PO DAILY 12/16/16 Unknown History tablet) levothyroxine 75 mcg tablet 88 mcg PO DAILY 07/20/23 10/13/23 History coenzyme Q10 100 mg capsule (Co 100 mg PO DAILY 09/02/23 Unknown History Q-10) vitamin D3 25 mcg (1,000 unit)-vit 1 tab PO DAILY 10/07/23 Unknown History K2 90 mcg disintegrating tablet (D3 Plus K2 Dots) lisinopril 20 1 tab PO QDAY 07/20/24 Unknown History mg-hydrochlorothiazide 12.5 mg tablet magnesium 200 mg tablet 200 mg PO DAILY 04/21/25 Unknown History Allergy/AdvReac Type Severity Reaction Status Date / Time nickel Allergy Severe Rash Verified 04/21/25 09:32 propoxyphene (From Allergy Vomiting Verified 04/21/25 09:32 Darvocet-N 100) Family History Father Heart disease Dementia Colon polyps Surgical History Hx of colonoscopy History of dilation and curettage History of tonsillectomy History of mastectomy History of hysterectomy Social History household members: other details: current occupational status: retired Smoking Status: Never smoker ROS ROS ED ROS Narrative Constitutional: Denies any headache, fever, chills, lightheaded, dizziness currently Eyes: Denies change in vision double vision blurry vision Cardiovascular: Denies chest pain or palpitations, once again patient states that she did not pass out as she could hear people talking the entire time and both episodes Respiratory: Denies coughing wheezing shortness of breath Abdomen: Denies abdominal pain nausea vomit diarrhea : Denies any urinary symptoms Neurological: Denies any numbness, weakness, tingling Musculoskeletal: Denies back pain Skin: Denies any rashes or lesions EXAM Physical Exam Narrative Exam Narrative: General: Patient lying in bed rest comfortably did not appear to be in acute distress Head: Atraumatic, normocephalic Eyes: PERRL bilaterally, EOMI bilaterally, no conjunctival injection noted Neck: Soft, supple, trachea midline Cardiovascular: Regular rate and rhythm Respiratory: Clear to auscultation bilaterally Abdomen: Soft, nondistended, nontender to palpation Extremities: Radial pulses +2/4 in the bilateral extremities, +5/5 strength noted in the bilateral upper and lower extremities Neurological: Patient following commands knew that she was at [facility] the year is 2024 Skin: Warm, dry contact no rashes or lesions noted Const Vital Signs: 04/21/25 09:25 04/21/25 09:38 04/21/25 09:39 Temperature 98.6 F Temperature Source Oral Pulse Rate 61 Pulse Rate [Lying] 55 L Pulse Rate [Sitting (for 1 minute prior to obtaining)] 61 Pulse Rate [Standing (for 1 minute prior to obtaining)] 65 Respiratory Rate 15 Respiratory Pattern Blood Pressure 105/45 L Blood Pressure [Lying] 144/63 H Blood Pressure [Standing (for 1 minute prior to obtaining)] 136/78 H Blood Pressure Mean 65 Blood Pressure Mean [Lying] 90 Blood Pressure Mean [Standing (for 1 minute prior to obtaining)] 97 Pulse Ox 100 100 Oxygen Delivery Method Room Air Room Air 04/21/25 09:54 04/21/25 10:24 04/21/25 11:24 Temperature 97.9 F 97.9 F Temperature Source Temporal Oral Pulse Rate 51 L 57 L Pulse Rate [Lying] Pulse Rate [Sitting (for 1 minute prior to obtaining)] Pulse Rate [Standing (for 1 minute prior to obtaining)] Respiratory Rate 18 18 Respiratory Pattern Normal Blood Pressure 119/64 129/68 H Blood Pressure [Lying] Blood Pressure [Standing (for 1 minute prior to obtaining)] Blood Pressure Mean 82 88 Blood Pressure Mean [Lying] Blood Pressure Mean [Standing (for 1 minute prior to obtaining)] Pulse Ox 99 100 Oxygen Delivery Method Room Air Room Air 04/21/25 12:24 Temperature 98.7 F Temperature Source Oral Pulse Rate 64 Pulse Rate [Lying] Pulse Rate [Sitting (for 1 minute prior to obtaining)] Pulse Rate [Standing (for 1 minute prior to obtaining)] Respiratory Rate 17 Respiratory Pattern Blood Pressure 136/78 H Blood Pressure [Lying] Blood Pressure [Standing (for 1 minute prior to obtaining)] Blood Pressure Mean 97 Blood Pressure Mean [Lying] Blood Pressure Mean [Standing (for 1 minute prior to obtaining)] Pulse Ox 100 Oxygen Delivery Method Room Air MDM MDM MDM Narrative Medical decision making narrative: Patient is a 74-year-old female who presents to the emergency department of becoming lightheaded x 2 while donating blood today. On the differential diagnosis includes but not limited to ACS, vasovagal syncope, orthostatic hypotension, dehydration. Once workup is obtained reviewed she will be reevaluated. Orthostatic vital signs will be obtained. Patient be given IV fluids. Patient CBC reviewed and was largely unremarkable no evidence leukocytosis white blood count normal at 7.6, hemoglobin 11.4, platelet count normal at 186. Patient sodium is 136, potassium normal 3.7, creatinine normal at 1.02. Patient troponin was 13 with a delta troponin of 13, EKG showed sinus bradycardia with a rate of 50 bpm RI interval normal at 172 QTc of 435. There is chest x-ray reviewed by myself by radiology showed no acute cardiopulmonary processes. Patient ambulated well here in the emergency department feels much better would like to go home at this point time. She was advised to return with worsening symptoms or any other concerns otherwise she is to follow-up with her doctor in outpatient setting. All question concerns answered she was discharged home in stable condition. Family member at bedside is also agreeable with this plan. Lab Data Labs: Laboratory Results - last 24 hr 04/21/25 04/21/25 09:55 12:30 WBC 7.6 RBC 3.76 L Hgb 11.4 L Hct 34.0 L MCV 90.4 MCH 30.3 MCHC 33.5 RDW Std Deviation 44.3 H RDW Coeff of Gris 13.5 Plt Count 186 MPV 9.8 Immature Gran % (Auto) 0.500 Neut % (Auto) 64.9 Lymph % (Auto) 27.5 [place] % (Auto) 6.1 Eos % (Auto) 0.5 Baso % (Auto) 0.5 Absolute Neuts (auto) 4.9 Absolute Lymphs (auto) 2.08 Nucleated RBC % 0 Sodium 136 Potassium 3.7 Chloride 103 Carbon Dioxide 19.3 L Anion Gap 14 BUN 31 H Creatinine 1.02 Estim Creat Clear Calc 45.78 L Est GFR (MDRD) Non-Af 58 L BUN/Creatinine Ratio 30.3 H Glucose 140 H Calcium 8.8 Troponin T High Sens 13 Troponin T Hi Sens 2 Hr 13 Radiography Diagnostic Testing: Clinical Impression(s) from Imaging Studies Chest X-Ray 04/21/25 09:39 IMPRESSION: No acute pulmonary process Reading Location: [facility] Discharge Plan Triage Chief Complaint: Syncope ED Provider: Armond Sanchez Dx/Rx/DC Orders Clinical Impression: Lightheadedness, Blood donor Prescriptions: No Action coenzyme Q10 [Co Q-10] 100 mg capsule 100 mg PO DAILY lisinopril-hydrochlorothiazide 20-12.5 mg tablet 1 tab PO QDAY levothyroxine 75 mcg tablet 88 mcg PO DAILY multivitamin [Multiple Vitamins] 1 EACH tablet 1 ea PO DAILY calcium carbonate 500 MG tablet,chewable 500 mg PO DAILY D3 Plus K2 Dots 25 mcg (1,000 unit)-90 mcg tablet,disintegrating 1 tab PO DAILY magnesium 200 mg tablet 200 mg PO DAILY Primary Care Provider: Alma Rosa Ga Referrals: Alma Rosa Ga, DOG POUND ATTENDANT-C [Primary Care Provider] - Activity Restrictions/Additional Instructions: Your blood work was normal today as well as your chest x-ray and EKG. Follow-up with your doctor in the outpatient setting. Return with worsening symptoms or any other concerns Print Language: Hungarian Disposition Disposition: Home, Self Care
[2025-04-21] MEDS: 0.9% Normal Saline (1000mL) 1,000 ML 999 ML IV (09:57)
[2025-04-21 10:02] LABS: Hematocrit 34.0 % (37-47); Hemoglobin 11.4 g/dL (12.0-15.0); Immature Granulocytes Count 0.040 X10^3/uL (0.0-0.0); Mean Corp Hgb Conc 33.5 g/dL (32-36); Mean Corpuscular Volume 90.4 fL (81-99); Mean Platelet Vol. 9.8 fl (6.2-12.0); NRBC Flagged by Analyzer 0 % (0-5); Platelet Count 186 K/mm3 (150-450); RBC Distribution Width CV 13.5 % (11.6-14.6); RBC Distribution Width SD 44.3 fl (35.1-43.9); Red Blood Count 3.76 M/mm3 (4.2-5.4); White Blood Count 7.6 K/mm3 (4.4-11.0)
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
--- OUTSIDE RECORDS SUMMARY | 2025-04-21 10:32 | XMS RPT_ITS | CCD ---
Author Organization [facility] Care Team Providers Care Superannuation Funds Manager Name Role Phone SHERLYN SIDDIQUI Attending Unavailab dominic LEACH, ISRA TABOR Primary Care Unavailable SHERLYN SIDDIQUI Referring Unavailab dominic LEACH, ISRA TABOR Primary Care Unavailable STEFANIE CASAS Admitting Unavailab TANNER Shane Attending Unavailable Harmeet, DIRECTOR OF CATERING SALES-C Alma Rosa Primary Care Provider Harmeet, DIRECTOR OF CATERING SALES-C Alma Rosa Referring Provider Dr. Donnie Heck Attending Provider Lilliam Rosas Attending Provider Unavailable Dr. Itzel Botello Attending Provider Dr. Itzel Botello Other Provider [phone] Harmeet DIRECTOR OF CATERING SALES-C, Alma Rosa Primary Care Provider Harmeet DIRECTOR OF CATERING SALES-C, Alma Rosa Attending Provider Harmeet DIRECTOR OF CATERING SALES-C, Alma Rosa Referring Provider Harmeet, Alma Rosa Primary Care Unavailable Harmeet, Alma Rosa Attending Unavailable Harmeet, Alma Rosa Referring Unavailable Harmeet, Alma Rosa Primary Care Unavailable Harmeet, Alma Rosa Attending Unavailable Harmeet, Alma Rosa Referring Unavailable Haylee, Isra Primary Care Unavailable Haylee, Isra Referring Unavailable Veronika DIRECTOR OF CATERING SALESSummer Attending Unavailable Donnie Heck Attending Unavailable Harmeet, Alma Rosa Primary Care Unavailable Harmeet, Alma Rosa Referring Unavailable Donnie Heck Attending Unavailable Donnie Heck Referring Unavailable Harmeet, Alma Rosa Primary Care Unavailable Allergies Allergy Classification Reported Allergen(s) Allergy Type Date of Onset Reaction(s) Facility (8 sources) nickel; Translations: [NICKEL] Drug Allergy 12-06-2002 Rash [facility] (1 source) Acetaminophen Drug Allergy 09-02-2023 Vomiting [facility] (4 sources) Propoxyphene; Translations: [PROPOXYPHENE] Drug Allergy 12-06-2002 Vomiting [facility] (1 source) nickel Drug Allergy 07-20-2024 [facility] Repository (1 source) Propoxyphene Drug Allergy 07-20-2024 [facility] Repository Medications Current Medications Medication Drug Class(es) Dates Sig (Normalized) Sig (Original) calcium carbonate 1250 mg chewable tablet (7 sources) Start: 7 take 1 tablet by mouth once daily Calcium Carbonate 500 MG tablet,chewable Active 500 mg PO DAILY December 16, 2016 12:00am cholecalciferol 0.025 mg chewable tablet (5 sources) Vitamin D Start: 7 take 1 tablet by mouth once daily Cholecalciferol (Vitamin D3) (Vitamin D3) 1,000 UNIT tablet,chewable Active 1000 UNIT PO DAILY December 15, 2016 11:00pm cholecalciferol 1000 unt / vitamin k2 0.09 mg disintegrating oral tablet (2 sources) Vitamin D Start: 4 take 1 tablet by mouth once daily Vitamin D3-Vitamin K2 (D3 Plus K2 Dots) 25 mcg (1,000 unit)-90 mcg tablet,disintegrati ng Active 1 {tbl} PO DAILY October 07, 2023 1:00am dexamethasone 6 mg oral tablet (5 sources) Corticosteroid Start: 1 take 1 tablet by mouth once daily Dexamethasone (Decadron) 6 mg tablet Active 6 MG PO DAILY September 01, 2021 12:00am hydroCHLOROthiazide 12.5 mg / lisinopril 20 mg oral tablet (1 source) Thiazide Diuretic, Angiotensin Converting Enzyme Inhibitor Start: 4 Lisinopril-Hydrochl orothiazide 20-12.5 mg tablet Active 1 {tbl} PO daily July 20, 2024 12:00am levothyroxine sodium 0.075 mg oral tablet (11 sources) l-Thyroxine Start: 3 Levothyroxine 75 mcg tablet Active 88 ug PO DAILY July 20, 2023 11:34am Start: 07-20-2023 take 88 ug by mouth once daily Levothyroxine Active 88 MCG PO DAILY July 20, 2023 10:34am Start: 08-26-2015 End: 07-20-2023 take 1 tablet by mouth once daily Levothyroxine 75 MCG tablet Discontinued 75 ug PO DAILY August 26, 2015 1:00am July 20, 2023 11:35am melatonin 10 mg oral capsule (3 sources) Start: 09-02-2023 take 1 capsule by mouth at bedtime as needed for sleep Melatonin 10 mg capsule Active 10 mg PO BEDTIME as needed for sleep September 02, 2023 1:00am Multivitamin (Multiple Vitamins) 1 EACH tablet (7 sources) Start: 12-16-2016 take 1 tablet by mouth once daily Multivitamin (Multiple Vitamins) 1 EACH tablet Active 1 NMA PO DAILY December 16, 2016 12:00am Start: 12-16-2016 take 1 tablet by lindy th once daily Multivitamin (Multiple Vitamins) 1 EACH tablet Active 1 EACH PO DAILY December 15, 2016 11:00pm Start: 12-16-2016 take 1 tablet by lindy th once daily Multivitamin (Multiple Vitamins) 1 EACH tablet Active 1 EACH PO DAILY December 16, 2016 12:00am ubidecarenone 100 mg oral ca psule (3 sources) Start: 09-02-2023 Coenzyme Q10 ( Co Q-10) 100 mg capsule Active 100 mg PO DAILY September 02, 2023 1:00am Completed/Discontinued Medications Medication Drug Class(es) Dates Sig (Normalized) Sig (Original) hydroCHLOROthiazide 12.5 mg oral capsule (2 sources) Thiazide Diuretic Start: 4 End: 4 take 1 capsule by mouth once daily Hydrochlorothiazide 12.5 mg capsule Discontinued 12.5 mg PO DAILY October 07, 2023 1:00am July 20, 2024 2:58pm lisinopril 10 mg oral tablet (6 sources) Angiotensin Converting Enzyme Inhibitor Start: 2 End: 4 take 2 tablets by mouth once daily Lisinopril 10 mg tablet Discontinued 20 mg PO DAILY August 05, 2022 1:00am July 20, 2024 2:58pm Start: 08-05-2022 take 20 mg by mouth once daily Lisinopril Active 20 MG PO DAILY August 05, 2022 12:00am Start: 08-05-2022 Lisinopril Act fernando MG PO August 05, 2022 12:00am Problems Active Problems Problem Classification Problem Date Documented Date Episodic/Chronic Cancer of breast (15 sources) Malignant tumor of breast ; Translations: [Malignant neoplasm of unspecified site of left female breast] Onset: 07-20-2024 08-05-2022 Chronic Comment on above: No evidence of disea se clinically.MRI R breast on 06/21/2024 is negative. Essential hypertension (1 source) Essential (primary) hypertension; Translations: [Essential (primary) hypertension] Onset: 02-22-2025 Chronic Other hematologic conditions (7 sources) Abnormal gamma globulin level; Translations: [Abnormality of globulin] 07-10-2021 Episodic Other screening for suspected conditions (not mental disorders or infectious disease) (4 sources) Patient encounter status; Translations: [Encounter for screening for malignant neoplasm of colon] 09-02-2023 Episodic Residual codes; unclassified (14 sources) BRCA2 gene mutation positive; Translations: [Genetic susceptibility to malignant neoplasm of breast] 05-15-2019 Episodic Viral infection (7 sources) Disease caused by 2019-nCoV; Translations: [COVID-19] 09-01-2021 Episodic Past or Other Problems Problem Classification Problem Date Documented Date Episodic/Chronic Cancer of breast (15 sources) History of malignant neoplasm of breast; Translations: [Personal history of malignant neoplasm of breast] Onset: 07-20-2024 07-10-2021 Episodic Comment on above: No evidence of disea se clinically. Residual codes; unclassified (5 sources) Genetic susceptibility to malignant neoplasm of breast; Translations: [Genetic susceptibility to malignant neoplasm of breast] Onset: 07-20-2024 07-20-2023 Episodic Results Test Name Value Interpretation Reference Range Facility Absolute lymphocyte countOrd ered By: Alma Rosa aG on 02-19-2025 Lymphocytes Auto (Unsp spec) [#/Vol] 1.30 10*3/uL 0.83-4.51 [facility] Absolute neutrophil countOrd ered By: Alma Rosa Ga on 02-19-2025 Neutrophils (Bld) [#/Vol] 3.6 10*3/uL 2.0-7.7 [facility] Anion gap in Serum or Plasma Ordered By: Alma Rosa Ga on 02-19-2025 Anion gap [Moles/Vol] 13 mmol/L 5-15 [facility] Automated lymphocyte count a s percentage of total leukocytesOrdered By: Alma Rosa Monterrosogar on 02-19-2025 Lymphocytes/100 WBC Auto (Unsp spec) 24.8 % 19-41 [facility] BUN/creatinine ratioOrdered By: Alma Rosasrinivas Ga on 02-19-2025 Urea nitrogen/Creatinine [Mass ratio] 29.8 mg/mg High 10-20 [facility] Basophil percentageOrdered B y: Alma Rosa Monterrosogar on 02-19-2025 Basophils/100 WBC (Bld) 0.8 % 0-1 [facility] Bilirubin, totalOrdered By: Alma Rosa Harmeet on 02-19-2025 Bilirubin [Mass/Vol] 0.77 mg/dL 0.00-1.30 [facility] CBC W/Diff, Automatedon -2024 Absolute Lymph 1.30 X10 3/uL Normal 0.83-4.51 [facility] Comment on above: Performed By: #### L 500.4100, L506.0400, L501.9520, L506.1000, L100.0100, L500.4050 #### [facility] Laboratory [address] [place], [address] Absolute Neut 3.6 X10 3/uL Normal 2.0-7.7 [facility] Comment on above: Performed By: #### L 500.4100, L506.0400, L501.9520, L506.1000, L100.0100, L500.4050 #### [facility] [address] [place], [address] Basophils/100 WBC (Bld) 0.8 % Normal 0-1 [facility] Comment on above: Performed By: #### L 500.4100, L506.0400, L501.9520, L506.1000, L100.0100, L500.4050 #### [facility] [address] [place], [address] Eosinophils/100 WBC (Bld) 0.4 % Normal 0-5 [facility] Comment on above: Performed By: #### L 500.4100, L506.0400, L501.9520, L506.1000, L100.0100, L500.4050 #### [facility] [address] [place], [address] Erythrocyte distribution width (RBC) [Ratio] 13.4 % Normal 11.6-14.6 [facility] Comment on above: Performed By: #### L 500.4100, L506.0400, L501.9520, L506.1000, L100.0100, L500.4050 #### [facility] [address] [place], [address] Hematocrit (Bld) [Volume fraction] 38.7 % Normal 37-47 [facility] Comment on above: Performed By: #### L 500.4100, L506.0400, L501.9520, L506.1000, L100.0100, L500.4050 #### [facility] [address] [place], [address] Hemoglobin (Bld) [Mass/Vol] 13.2 g/dL Normal 12.0-15.0 [facility] Comment on above: Performed By: #### L 500.4100, L506.0400, L501.9520, L506.1000, L100.0100, L500.4050 #### [facility] [address] [place], [address] IG% 0.200 Normal 0.0-0.9 [facility] Comment on above: Result Comment: IG% - Immature Granulocytes (promyelocytes, myelocytes and metamyelocytes) > 1% indicates that a LEFT SHIFT is Present. Performed By: #### L 500.4100, L506.0400, L501.9520, L506.1000, L100.0100, L500.4050 #### [facility] [address] [place], [address] Lymphocytes/100 WBC (Bld) 24.8 % Normal 19-41 [facility] Comment on above: Performed By: #### L 500.4100, L506.0400, L501.9520, L506.1000, L100.0100, L500.4050 #### [facility] [address] [place], [address] MCH (RBC) [Entitic mass] 30.7 pg Normal 27.0-32.0 [facility] Comment on above: Performed By: #### L 500.4100, L506.0400, L501.9520, L506.1000, L100.0100, L500.4050 #### [facility] [address] [place], [address] MCHC (RBC) [Mass/Vol] 34.1 g/dL Normal 32-36 [facility] Comment on above: Performed By: #### L 500.4100, L506.0400, L501.9520, L506.1000, L100.0100, L500.4050 #### [facility] [address] [place], [address] MCV (RBC) [Entitic vol] 90.0 fL Normal 81-99 [facility] Comment on above: Performed By: #### L 500.4100, L506.0400, L501.9520, L506.1000, L100.0100, L500.4050 #### [facility] [address] [place], [address] Monocytes/100 WBC (Bld) 6.1 % Normal 0-10 [facility] Comment on above: Performed By: #### L 500.4100, L506.0400, L501.9520, L506.1000, L100.0100, L500.4050 #### [facility] [address] [place], [address] Neutrophils/100 WBC (Bld) 67.7 % Normal 47-70 [facility] Comment on above: Performed By: #### L 500.4100, L506.0400, L501.9520, L506.1000, L100.0100, L500.4050 #### [facility] [address] [place], [address] Nucleated RBC (Bld) [#/Vol] 0 10*3/uL Normal 0-5 [facility] Comment on above: Performed By: #### L 500.4100, L506.0400, L501.9520, L506.1000, L100.0100, L500.4050 #### [facility] [address] [place], [address] Platelet mean volume (Bld) [Entitic vol] 10.7 fL Normal 6.2-12.0 [facility] Comment on above: Performed By: #### L 500.4100, L506.0400, L501.9520, L506.1000, L100.0100, L500.4050 #### [facility] [address] [place], [address] Platelets (Bld) [#/Vol] 219 10*3/uL Normal 150-450 [facility] Comment on above: Performed By: #### L 500.4100, L506.0400, L501.9520, L506.1000, L100.0100, L500.4050 #### [facility] [address] [place], [address] RBC (Bld) [#/Vol] 4.30 10*6/uL Normal 4.2-5.4 [facility] Comment on above: Performed By: #### L 500.4100, L506.0400, L501.9520, L506.1000, L100.0100, L500.4050 #### [facility] [address] [place], [address] RDW SD 44.0 fl High 35.1-43.9 [facility] Comment on above: Performed By: #### L 500.4100, L506.0400, L501.9520, L506.1000, L100.0100, L500.4050 #### [facility] [address] [place], [address] WBC (Bld) [#/Vol] 5.3 10*3/uL Normal 4.4-11.0 [facility] Comment on above: Performed By: #### L 500.4100, L506.0400, L501.9520, L506.1000, L100.0100, L500.4050 #### [facility] [address] [place], [address] Calculated very low density lipoprotein (VLDL) cholesterol measurementOrdered By: Alma Rosa Ga on 02-19-2025 Calculated very low density lipoprotein (VLDL) cholesterol measurement 16 mg/dL 5-40 [facility] Carbon dioxide, total [Moles /volume] in Central venous bloodOrdered By: Alma Rosa Ga on 02-19-2025 CO2 [Moles/Vol] 22.5 mmol/L 21.0-32.0 [facility] Chloride assayOrdered By: Ra dillon Ga on 02-19-2025 Chloride [Moles/Vol] 104 mmol/L 98-108 [facility] Comprehensive Metabolic Prof ilon 02-19-2025 Albumin [Mass/Vol] 4.6 g/dL Normal 3.4-4.8 [facility] Comment on above: Performed By: #### L 500.4100, L506.0400, L501.9520, L506.1000, L100.0100, L500.4050 #### [facility] [address] [place], [address] Albumin/Globulin [Mass ratio] 1.6 {ratio} Normal 0.9-2.4 [facility] Comment on above: Performed By: #### L 500.4100, L506.0400, L501.9520, L506.1000, L100.0100, L500.4050 #### [facility] [address] [place], [address] ALK PHOS 67 U/L Normal 35-104 [facility] Comment on above: Performed By: #### L 500.4100, L506.0400, L501.9520, L506.1000, L100.0100, L500.4050 #### [facility] [address] [place], [address] ALT [Catalytic activity/Vol] 12 U/L Normal <=34 [facility] Comment on above: Performed By: #### L 500.4100, L506.0400, L501.9520, L506.1000, L100.0100, L500.4050 #### [facility] [address] [place], [address] AST [Catalytic activity/Vol] 20 U/L Normal <=31 [facility] Comment on above: Performed By: #### L 500.4100, L506.0400, L501.9520, L506.1000, L100.0100, L500.4050 #### [facility] [address] [place], [address] Bilirubin [Mass/Vol] 0.77 mg/dL Normal 0.00-1.30 [facility] Comment on above: Performed By: #### L 500.4100, L506.0400, L501.9520, L506.1000, L100.0100, L500.4050 #### [facility] [address] [place], [address] BUN/CRE 29.8 RATIO High 10-20 [facility] Comment on above: Performed By: #### L 500.4100, L506.0400, L501.9520, L506.1000, L100.0100, L500.4050 #### [facility] [address] [place], [address] Calcium [Mass/Vol] 9.6 mg/dL Normal 7.6-11.0 [facility] Comment on above: Performed By: #### L 500.4100, L506.0400, L501.9520, L506.1000, L100.0100, L500.4050 #### [facility] [address] [place], [address] Chloride [Moles/Vol] 104 mmol/L Normal 98-108 [facility] Comment on above: Performed By: #### L 500.4100, L506.0400, L501.9520, L506.1000, L100.0100, L500.4050 #### [facility] [address] [place], [address] CO2 [Moles/Vol] 22.5 mmol/L Normal 21.0-32.0 [facility] Comment on above: Performed By: #### L 500.4100, L506.0400, L501.9520, L506.1000, L100.0100, L500.4050 #### [facility] [address] [place], [address] Creatinine [Mass/Vol] 0.90 mg/dL Normal 0.70-1.20 [facility] Comment on above: Performed By: #### L 500.4100, L506.0400, L501.9520, L506.1000, L100.0100, L500.4050 #### [facility] [address] [place], [address] GAP 13 Normal 5-15 [facility] Comment on above: Performed By: #### L 500.4100, L506.0400, L501.9520, L506.1000, L100.0100, L500.4050 #### [facility] [address] [place], [address] GFR/1.73 sq M.predicted among non-blacks MDRD (S/P/Bld) [Vol rate/Area] 68 mL/min/{1.73_m2} Normal >60 [facility] Comment on above: Result Comment: mL/m in/1.73m2 CKD-EPI Creatinine Equation (2020) Performed By: #### L 500.4100, L506.0400, L501.9520, L506.1000, L100.0100, L500.4050 #### [facility] [address] [place], [address] Globulin (S) [Mass/Vol] 2.9 g/dL Normal 2.2-4.2 [facility] Comment on above: Performed By: #### L 500.4100, L506.0400, L501.9520, L506.1000, L100.0100, L500.4050 #### [facility] [address] [place], [address] Glucose [Mass/Vol] 93 mg/dL Normal 70-99 [facility] Comment on above: Performed By: #### L 500.4100, L506.0400, L501.9520, L506.1000, L100.0100, L500.4050 #### [facility] [address] [place], [address] Potassium [Moles/Vol] 4.4 mmol/L Normal 3.3-5.1 [facility] Comment on above: Performed By: #### L 500.4100, L506.0400, L501.9520, L506.1000, L100.0100, L500.4050 #### [facility] [address] [place], [address] Sodium [Moles/Vol] 139 mmol/L Normal 133-145 [facility] Comment on above: Performed By: #### L 500.4100, L506.0400, L501.9520, L506.1000, L100.0100, L500.4050 #### [facility] [address] [place], [address] T PROT 7.5 g/dL Normal 5.9-8.4 [facility] Comment on above: Performed By: #### L 500.4100, L506.0400, L501.9520, L506.1000, L100.0100, L500.4050 #### [facility] [address] [place], [address] Urea nitrogen [Mass/Vol] 27 mg/dL High 4-19 [facility] Comment on above: Performed By: #### L 500.4100, L506.0400, L501.9520, L506.1000, L100.0100, L500.4050 #### [facility] [address] [place], [address] Eosinophil percentageOrdered By: Alma Rosa Ga on 02-19-2025 Eosinophils/100 WBC (Bld) 0.4 % 0-5 [facility] Erythrocyte distribution wid th ratioOrdered By: Alma Rosa Ga on 02-19-2025 Erythrocyte distribution width (RBC) [Ratio] 13.4 % 11.6-14.6 [facility] Erythrocyte distribution wid th standard deviationOrdered By: Alma Rosa Ga on 02-19-2025 Erythrocyte distribution width (RBC) [Ratio] 44.0 fl High 35.1-43.9 [facility] Glomerular filtration rate ( GFR) estimation/1.73 sq m using serum, plasma, or whole bOrdered By: Alma Rosa Ga on 02-19-2025 GFR/1.73 sq M.predicted among non-blacks MDRD (S/P/Bld) [Vol rate/Area] 68 mL/min/{1.73_m2} >60 [facility] Comment on above: mL/min/1.73m2 CKD-EP I Creatinine Equation (2020) Hematocrit Auto (Bld) [Volum e fraction]Ordered By: Alma Rosa Ga on 02-19-2025 Hematocrit (Bld) [Volume fraction] 38.7 % 37-47 [facility] Hemoglobin measurementOrdere d By: Alma Rosa Ga on 02-19-2025 Hemoglobin (Bld) [Mass/Vol] 13.2 g/dL 12.0-15.0 [facility] Immature granulocytes/100 WB C Auto (Bld)Ordered By: Alma Rosa Ga on 02-19-2025 Immature granulocytes/100 WBC (Bld) 0.200 % 0.0-0.9 [facility] Comment on above: IG% - Immature Granu locytes (promyelocytes, myelocytes and metamyelocytes) > 1% indicates that a LEFT SHIFT is Present. LDL calc ser/plasOrdered By: Alma Rosa Ga on 02-19-2025 Cholesterol in LDL [Mass/Vol] 180 mg/dL Normal [facility] Comment on above: Rylppmwkgb=080-320 m g/dL & Higher Hwtt=758 mg/dL or greater Result Comment: Bord mytddk=228-530 mg/dL Higher Bgee=408 mg/dL or greater Performed By: #### L 500.4100, L506.0400, L501.9520, L506.1000, L100.0100, L500.4050 #### [facility] [address] [place], [place], [id number] Laboratory - Chemistry and C hemistry - challengeOrdered By: Alma Rosa Ga on 02-19-2025 AST [Catalytic activity/Vol] 20 U/L <32 [facility] Lipid Profileon 02-19-2025 CHOL:HDL 5.06 Normal [facility] Comment on above: Performed By: #### L 500.4100, L506.0400, L501.9520, L506.1000, L100.0100, L500.4050 #### [facility] [address] [place], [place], [id number] Cholesterol in VLDL [Mass/Vol] 16 mg/dL Normal 5-40 [facility] Comment on above: Performed By: #### L 500.4100, L506.0400, L501.9520, L506.1000, L100.0100, L500.4050 #### [facility] [address] [place], [address] Cholesterol [Mass/Vol] 244 mg/dL High <=200 [facility] Comment on above: Result Comment: Chol esterol level, Desirable <200 mg/dL Borderline high cholesterol 200-239 mg/dL High cholesterol >=240 mg/dL Recommendations of the NCEP Adult Treatment Panel for the following risk-cutoff thresholds for the [place] population. Performed By: #### L 500.4100, L506.0400, L501.9520, L506.1000, L100.0100, L500.4050 #### [facility] [address] [place], [address] Cholesterol in HDL [Mass/Vol] 48 mg/dL Normal [facility] Comment on above: Result Comment: [facility] Cholesterol Education Program (NCEP) guidelines: <40 mg/dL: Low HDL-cholesterol (major risk factor for CHD) >= 60 mg/dL: High HDL-cholesterol (negative risk factor for CHD) HDL-cholesterol is affected by a number of factors, e.g. smoking, exercise, hormones, sex and age. Performed By: #### L 500.4100, L506.0400, L501.9520, L506.1000, L100.0100, L500.4050 #### [facility] [address] [place], [address] Triglyceride [Mass/Vol] 80 mg/dL Normal [facility] Comment on above: Result Comment: The drugs N-Acetylcysteine and Metamizole may falsely depress this assay. Normal range: <150 mg/dL Borderline High: 150-199 mg/dL High: 200-499 mg/dL Very High: >500 mg/dL Performed By: #### L 500.4100, L506.0400, L501.9520, L506.1000, L100.0100, L500.4050 #### [facility] [address] [place], [address] MCV (mean corpuscular volume ) determinationOrdered By: Alma Rosa Ga on 02-19-2025 MCV (RBC) [Entitic vol] 90.0 fL 81-99 [facility] Mean corpuscular hemoglobin (MCH) determinationOrdered By: Alma Rosa Ga on 02-19-2025 MCH (RBC) [Entitic mass] 30.7 pg 27.0-32.0 [facility] Mean corpuscular hemoglobin concentration (MCHC) determinationOrdered By: Alma Rosa Ga on 02-19-2025 MCHC (RBC) [Mass/Vol] 34.1 g/dL 32-36 [facility] Mean platelet volume determi nationOrdered By: Alma Rosa Ga on 02-19-2025 Platelet mean volume (Bld) [Entitic vol] 10.7 fL 6.2-12.0 [facility] Monocyte percentageOrdered B y: Alma Rosa Ga on 02-19-2025 Monocytes/100 WBC (Bld) 6.1 % 0-10 [facility] Neutrophil percentageOrdered By: Alma Rosa Ga on 02-19-2025 Neutrophils/100 WBC (Bld) 67.7 % 47-70 [facility] Nucleated red blood cell per centageOrdered By: Alma Rosa Ga on 02-19-2025 Nucleated RBC/100 WBC (Bld) [Ratio] 0 % 0-5 [facility] Platelet countOrdered By: Ra dillon Ga on 02-19-2025 Platelets (Bld) [#/Vol] 219 10*3/uL 150-450 [facility] Potassium measurement (mass/ volume)Ordered By: Alma Rosa Ga on 02-19-2025 Potassium (Unsp spec) [Mass/Vol] 4.4 mmol/L 3.3-5.1 [facility] RBC Auto (Bld) [#/Vol]Ordere d By: Alma Rosa Ga on 02-19-2025 RBC (Bld) [#/Vol] 4.30 10*6/uL 4.2-5.4 [facility] Screening total cholesterol/ high density lipoprotein (HDL) cholesterol ratioOrdered By: Alma Rosa Ga on 02-19-2025 Cholesterol.total/Cholest kathya in HDL [Mass ratio] 5.06 {ratio} [facility] Serum creatinine measurement (mass/volume)Ordered By: Alma Rosa Ga on 02-19-2025 Creatinine [Mass/Vol] 0.90 mg/dL 0.70-1.20 [facility] Serum globulin measurementOr dered By: Alma Rosa Ga on 02-19-2025 Globulin (S) [Mass/Vol] 2.9 g/dL 2.2-4.2 [facility] Serum glucose measurement (m ass/volume)Ordered By: Alma Rosa Ga on 02-19-2025 Glucose [Mass/Vol] 93 mg/dL 70-99 [facility] Serum or plasma alanine cunha otransferase (ALT) measurementOrdered By: Alma Rosa Ga on 02-19-2025 ALT [Catalytic activity/Vol] 12 U/L <35 [facility] Serum or plasma albumin gerald urement (mass/volume)Ordered By: Alma Rosa Ga on 02-19-2025 Albumin [Mass/Vol] 4.6 g/dL 3.4-4.8 [facility] Serum or plasma albumin/glob ulin mass ratioOrdered By: Alma Rosa Ga on 02-19-2025 Albumin/Globulin [Mass ratio] 1.6 {ratio} 0.9-2.4 [facility] Serum or plasma alkaline cary sphatase measurementOrdered By: Alma Rosa Ga on 02-19-2025 ALP [Catalytic activity/Vol] 67 U/L 35-104 [facility] Serum or plasma calcium gerald urement (mass/volume)Ordered By: Alma Rosa Ga on 02-19-2025 Calcium [Mass/Vol] 9.6 mg/dL 7.6-11.0 [facility] Serum or plasma cholesterol in HDL measurement (mass/volume)Ordered By: Alma Rosa Ga on 02-19-2025 Cholesterol in HDL [Mass/Vol] 48 mg/dL >40 [facility] Comment on above: National Cholesterol Education Program (NCEP) guidelines:<40 mg/dL: Low HDL-cholesterol (major risk factor for CHD)>= 60 mg/dL: High HDL-cholesterol (negative risk factor for CHD)HDL-cholesterol is affected by a number of factors, e.g. smoking, exercise, hormones, sex and age. Serum or plasma cholesterol measurement (mass/volume)Ordered By: Alma Rosa Ga on 02-19-2025 Cholesterol [Mass/Vol] 244 mg/dL High <201 [facility] Comment on above: Cholesterol level, D esirable <200 mg/dLBorderline high cholesterol 200-239 mg/dLHigh cholesterol >=240 mg/dLRecommendations of the NCEP Adult Treatment Panel for the following risk-cutoff thresholds for the [place] population. Serum or plasma urea nitroge n measurement (mass/volume)Ordered By: Alma Rosa Ga on 02-19-2025 Urea nitrogen [Mass/Vol] 27 mg/dL High 4-19 [facility] Sodium levelOrdered By: Gita Ga on 02-19-2025 Sodium [Moles/Vol] 139 mmol/L 133-145 [facility] T4 Free Directon 02-19-2025 T4 FREE DIRECT 1.70 ng/dL High 0.76-1.46 [facility] Comment on above: Performed By: #### L 500.4100, L506.0400, L501.9520, L506.1000, L100.0100, L500.4050 #### [facility] [address] [place], [place], [id number] T4 freeOrdered By: Alma Rosa de jesus on 02-19-2025 Free T4 [Mass/Vol] 1.70 ng/dL High 0.76-1.46 [facility] TSH DL <= 0.005 mIU/L QnOrde red By: Alma Rosa Ga on 02-19-2025 TSH Qn 0.558 uIU/mL 0.300-4.200 [facility] Thyroid Stim Hormone (TSH)on 02-19-2025 TSH 0.558 uIU/mL Normal 0.300-4.200 [facility] Comment on above: Performed By: #### L 500.4100, L506.0400, L501.9520, L506.1000, L100.0100, L500.4050 #### [facility] [address] [place] [place], [address] Total proteinOrdered By: Anay Ga on 02-19-2025 Protein [Mass/Vol] 7.5 g/dL 5.9-8.4 [facility] Triglycerides measurementOrd ered By: Alma Rosa Ga on 02-19-2025 Triglyceride [Mass/Vol] 80 mg/dL <199 [facility] Comment on above: The drugs N-Acetylcy steine and Metamizole may falsely depress this assay. Normal range: <150 mg/dLBorderline High: 150-199 mg/dLHigh: 200-499 mg/dLVery High: >500 mg/dL Vitamin D,25 Hydroxyon 02-19 Vitamin D 25-OH 73.4 ng/mL Normal 30-100 [facility] Comment on above: Result Comment: Breanna min D Status Deficiency: <20 ng/mL (50nmol/L) Insufficiency: 20-30 ng/mL (50-75 nmol/L) Sufficiency: 30-100 ng/mL (75-250 nmol/L) Toxicity: >100 ng/mL (>250 nmol/L) Performed By: #### L 500.4100, L506.0400, L501.9520, L506.1000, L100.0100, L500.4050 #### [facility] [address] [place], [address] White blood cell (WBC) count Ordered By: Alma Rosa Ga on 02-19-2025 WBC (Bld) [#/Vol] 5.3 10*3/uL 4.4-11.0 [facility] CBC W/Diff, Automatedon 12-0 Absolute Lymph 1.52 X10 3/uL Normal 0.83-4.51 [facility] Comment on above: Performed By: #### L 500.4100, L506.0400, L501.9520, L506.1000, L100.0100, L500.4050 #### [facility] [address] [place], [address] Absolute Neut 4.0 X10 3/uL Normal 2.0-7.7 [facility] Comment on above: Performed By: #### L 500.4100, L506.0400, L501.9520, L506.1000, L100.0100, L500.4050 #### [facility] [address] [place], [address] Basophils/100 WBC (Bld) 0.8 % Normal 0-1 [facility] Comment on above: Performed By: #### L 500.4100, L506.0400, L501.9520, L506.1000, L100.0100, L500.4050 #### [facility] [address] [place], [address] Eosinophils/100 WBC (Bld) 1.3 % Normal 0-5 [facility] Comment on above: Performed By: #### L 500.4100, L506.0400, L501.9520, L506.1000, L100.0100, L500.4050 #### [facility] [address] [place], [address] Erythrocyte distribution width (RBC) [Ratio] 13.7 % Normal 11.6-14.6 [facility] Comment on above: Performed By: #### L 500.4100, L506.0400, L501.9520, L506.1000, L100.0100, L500.4050 #### [facility] [address] [place], [address] Hematocrit (Bld) [Volume fraction] 40.6 % Normal 37-47 [facility] Comment on above: Performed By: #### L 500.4100, L506.0400, L501.9520, L506.1000, L100.0100, L500.4050 #### [facility] [address] [place], [address] Hemoglobin (Bld) [Mass/Vol] 13.4 g/dL Normal 12.0-15.0 [facility] Comment on above: Performed By: #### L 500.4100, L506.0400, L501.9520, L506.1000, L100.0100, L500.4050 #### [facility] [address] [place], [address] IG% 0.300 Normal 0.0-0.9 [facility] Comment on above: Result Comment: IG% - Immature Granulocytes (promyelocytes, myelocytes and metamyelocytes) > 1% indicates that a LEFT SHIFT is Present. Performed By: #### L 500.4100, L506.0400, L501.9520, L506.1000, L100.0100, L500.4050 #### [facility] [address] [place], [address] Lymphocytes/100 WBC (Bld) 25.2 % Normal 19-41 [facility] Comment on above: Performed By: #### L 500.4100, L506.0400, L501.9520, L506.1000, L100.0100, L500.4050 #### [facility] [address] [place], [address] MCH (RBC) [Entitic mass] 29.7 pg Normal 27.0-32.0 [facility] Comment on above: Performed By: #### L 500.4100, L506.0400, L501.9520, L506.1000, L100.0100, L500.4050 #### [facility] [address] [place], [address] MCHC (RBC) [Mass/Vol] 33.0 g/dL Normal 32-36 [facility] Comment on above: Performed By: #### L 500.4100, L506.0400, L501.9520, L506.1000, L100.0100, L500.4050 #### [facility] [address] [place], [address] MCV (RBC) [Entitic vol] 90.0 fL Normal 81-99 [facility] Comment on above: Performed By: #### L 500.4100, L506.0400, L501.9520, L506.1000, L100.0100, L500.4050 #### [facility] [address] [place], [address] Monocytes/100 WBC (Bld) 6.6 % Normal 0-10 [facility] Comment on above: Performed By: #### L 500.4100, L506.0400, L501.9520, L506.1000, L100.0100, L500.4050 #### [facility] [address] [place], [address] Neutrophils/100 WBC (Bld) 65.8 % Normal 47-70 [facility] Comment on above: Performed By: #### L 500.4100, L506.0400, L501.9520, L506.1000, L100.0100, L500.4050 #### [facility] [address] [place], [address] Nucleated RBC (Bld) [#/Vol] 0 10*3/uL Normal 0-5 [facility] Comment on above: Performed By: #### L 500.4100, L506.0400, L501.9520, L506.1000, L100.0100, L500.4050 #### [facility] [address] [place], [address] Platelet mean volume (Bld) [Entitic vol] 9.6 fL Normal 6.2-12.0 [facility] Comment on above: Performed By: #### L 500.4100, L506.0400, L501.9520, L506.1000, L100.0100, L500.4050 #### [facility] [address] [place], [address] Platelets (Bld) [#/Vol] 233 10*3/uL Normal 150-450 [facility] Comment on above: Performed By: #### L 500.4100, L506.0400, L501.9520, L506.1000, L100.0100, L500.4050 #### [facility] [address] [place], [address] RBC (Bld) [#/Vol] 4.51 10*6/uL Normal 4.2-5.4 [facility] Comment on above: Performed By: #### L 500.4100, L506.0400, L501.9520, L506.1000, L100.0100, L500.4050 #### [facility] [address] [place], [address] RDW SD 45.0 fl High 35.1-43.9 [facility] Comment on above: Performed By: #### L 500.4100, L506.0400, L501.9520, L506.1000, L100.0100, L500.4050 #### [facility] [address] [place], [address] WBC (Bld) [#/Vol] 6.0 10*3/uL Normal 4.4-11.0 [facility] Comment on above: Performed By: #### L 500.4100, L506.0400, L501.9520, L506.1000, L100.0100, L500.4050 #### [facility] [address] [place], [address] Comprehensive Metabolic Prof [facility] 08-25-2024 Albumin [Mass/Vol] 4.3 g/dL Normal 3.2-5.0 [facility] Comment on above: Performed By: #### L 500.4100, L506.0400, L501.9520, L506.1000, L100.0100, L500.4050 #### [facility] [address] [place], [address] Albumin/Globulin [Mass ratio] 1.2 {ratio} Normal 0.9-2.4 [facility] Comment on above: Performed By: #### L 500.4100, L506.0400, L501.9520, L506.1000, L100.0100, L500.4050 #### [facility] [address] [place], [address] ALK P 82 U/L Normal 45-117 [facility] Comment on above: Performed By: #### L 500.4100, L506.0400, L501.9520, L506.1000, L100.0100, L500.4050 #### [facility] [address] [place], [address] ALT [Catalytic activity/Vol] 21 U/L Normal 13-56 [facility] Comment on above: Performed By: #### L 500.4100, L506.0400, L501.9520, L506.1000, L100.0100, L500.4050 #### [facility] [address] [place], [address] AST [Catalytic activity/Vol] 17 U/L Normal 15-37 [facility] Comment on above: Performed By: #### L 500.4100, L506.0400, L501.9520, L506.1000, L100.0100, L500.4050 #### [facility] [address] [place], [address] Bilirubin [Mass/Vol] 0.70 mg/dL Normal 0.20-1.00 [facility] Comment on above: Result Comment: For patients on eltrombopag therapy, use of Dimension [place] TBIL is not recommended. Performed By: #### L 500.4100, L506.0400, L501.9520, L506.1000, L100.0100, L500.4050 #### [facility] [address] [place], [address] BUN/CRE 20.9 RATIO High 10-20 [facility] Comment on above: Performed By: #### L 500.4100, L506.0400, L501.9520, L506.1000, L100.0100, L500.4050 #### [facility] [address] [place], [address] CA,Total 9.7 mg/dL Normal 8.5-10.1 [facility] Comment on above: Performed By: #### L 500.4100, L506.0400, L501.9520, L506.1000, L100.0100, L500.4050 #### [facility] [address] [place], [address] Chloride [Moles/Vol] 104 mmol/L Normal 98-107 [facility] Comment on above: Performed By: #### L 500.4100, L506.0400, L501.9520, L506.1000, L100.0100, L500.4050 #### [facility] [address] [place], [address] CO2 [Moles/Vol] 27.0 mmol/L Normal 21.0-32.0 [facility] Comment on above: Performed By: #### L 500.4100, L506.0400, L501.9520, L506.1000, L100.0100, L500.4050 #### [facility] [address] [place], [address] Creatinine [Mass/Vol] 1.10 mg/dL High 0.55-1.02 [facility] Comment on above: Result Comment: The validity of the calculated GFR GFRAA in patients over 70 years has not been determined. Clinical correlation is essential. Performed By: #### L 500.4100, L506.0400, L501.9520, L506.1000, L100.0100, L500.4050 #### [facility] [address] [place], [address] EST GFR - AA 63 mL/min Normal >60 [facility] Comment on above: Result Comment: Afri can Haitian GFR Calc Performed By: #### L 500.4100, L506.0400, L501.9520, L506.1000, L100.0100, L500.4050 #### [facility] [address] [place], [address] GAP 7 Normal 5-15 [facility] Comment on above: Performed By: #### L 500.4100, L506.0400, L501.9520, L506.1000, L100.0100, L500.4050 #### [facility] [address] [place], [address] GFR/1.73 sq M.predicted among non-blacks MDRD (S/P/Bld) [Vol rate/Area] 52 mL/min/{1.73_m2} Low >60 [facility] Comment on above: Result Comment: Non- GFR Calc Performed By: #### L 500.4100, L506.0400, L501.9520, L506.1000, L100.0100, L500.4050 #### [facility] [address] [place], [address] Globulin (S) [Mass/Vol] 3.6 g/dL Normal 2.2-4.2 [facility] Comment on above: Performed By: #### L 500.4100, L506.0400, L501.9520, L506.1000, L100.0100, L500.4050 #### [facility] [address] [place], [address] Glucose [Mass/Vol] 112 mg/dL High 74-106 [facility] Comment on above: Result Comment: Fast ing Glucose result from 100 to 125 mg/dL suggests IMPAIRED HOMEOSTASIS per A.D.A. criteria. Performed By: #### L 500.4100, L506.0400, L501.9520, L506.1000, L100.0100, L500.4050 #### [facility] [address] [place], [address] Potassium [Moles/Vol] 3.6 mmol/L Normal 3.5-5.1 [facility] Comment on above: Performed By: #### L 500.4100, L506.0400, L501.9520, L506.1000, L100.0100, L500.4050 #### [facility] [address] [place], [address] Sodium [Moles/Vol] 139 mmol/L Normal 136-145 [facility] Comment on above: Performed By: #### L 500.4100, L506.0400, L501.9520, L506.1000, L100.0100, L500.4050 #### [facility] [address] [place], [address] T PROT 7.9 g/dL Normal 6.4-8.2 [facility] Comment on above: Performed By: #### L 500.4100, L506.0400, L501.9520, L506.1000, L100.0100, L500.4050 #### [facility] [address] [place], [address] Urea nitrogen [Mass/Vol] 23 mg/dL High 7-18 [facility] Comment on above: Performed By: #### L 500.4100, L506.0400, L501.9520, L506.1000, L100.0100, L500.4050 #### [facility] [address] [place], [address] Lipid Profileon 08-25-2024 Cholesterol [Mass/Vol] 303 mg/dL High 200 [facility] Comment on above: Result Comment: <200 mg/dL Desirable 200-240 mg/dL Borderline >240 mg/dL High Risk Performed By: #### L 500.4100, L506.0400, L501.9520, L506.1000, L100.0100, L500.4050 #### [facility] [address] [place], [address] Cholesterol in HDL [Mass/Vol] 62 mg/dL Normal [facility] Comment on above: Result Comment: The drugs N-Acetylcysteine and Metamizole may falsely depress this assay. Reference Range HDL <40 mg/dL Low HDL Cholesterol HDL >or= 60 mg/dL High HDL Cholesterol Performed By: #### L 500.4100, L506.0400, L501.9520, L506.1000, L100.0100, L500.4050 #### [facility] [address] [place], [address] Cholesterol in LDL [Mass/Vol] 215 mg/dL High 0-130 [facility] Comment on above: Performed By: #### L 500.4100, L506.0400, L501.9520, L506.1000, L100.0100, L500.4050 #### [facility] [address] [place], [address] Cholesterol in VLDL [Mass/Vol] 26 mg/dL Normal 5-40 [facility] Comment on above: Performed By: #### L 500.4100, L506.0400, L501.9520, L506.1000, L100.0100, L500.4050 #### [facility] [address] [place], [address] Triglyceride [Mass/Vol] 129 mg/dL Normal [facility] Comment on above: Result Comment: The drugs N-Acetylcysteine and Metamizole may falsely depress this assay. Serum Triglycerides Reference Interval Normal <150 mg/dL Borderline high 150 - 199 mg/dL High 200 - 499 mg/dL Very High > or = 500 mg/dL Performed By: #### L 500.4100, L506.0400, L501.9520, L506.1000, L100.0100, L500.4050 #### [facility] [address] [place], [address] T4 Free Directon 08-25-2024 T4 FREE DIRECT 1.08 ng/dL Normal 0.76-1.46 [facility] Comment on above: Performed By: #### L 500.4100, L506.0400, L501.9520, L506.1000, L100.0100, L500.4050 #### [facility] [address] [place], [address] Thyroid Stim Hormone (TSH)on 08-25-2024 TSH 3.490 uIU/mL Normal 0.358-3.740 [facility] Comment on above: Performed By: #### L 500.4100, L506.0400, L501.9520, L506.1000, L100.0100, L500.4050 #### [facility] [address] [facility] [place], [address] Vitamin D,25 Hydroxyon 08-25 Vitamin D 25-OH 116.8 ng/mL Normal [facility] Comment on above: Result Comment: Breanna min D 25(OH) Status Range Deficiency <20 ng/mL (50nmol/L) Insufficiency 20 - 30 ng/mL (50 - 75 nmol/L) Sufficiency 30 - 100 ng/mL (75 - 250 nmol/L) Toxicity >100 ng/mL (>250 nmol/L) Evidence suggests that patients undergoing fluorescein dye angiography can retain small amounts of fluorescein in the body for up to 48 to 72 hours post-treatment. In the cases of patients with renal insufficiency, retention could be much longer. Samples containing fluorescein can produce falsely elevated values when tested with the [employer] Vitamin D assay. With fluorescein interference, observed Vitamin D values can be as high as >150 ng/mL (>375 nmol/L). Samples should be resubmitted post fluorescein clearance to ensure there is no interference with Vitamin D test results. Performed By: #### L 500.4100, L506.0400, L501.9520, L506.1000, L100.0100, L500.4050 #### [facility] [address] [place], [address] CBC W/Diff, Automatedon 10-3 -2023 Absolute Lymph 1.98 X10 3/uL Normal 0.83-4.51 [facility] Comment on above: Performed By: #### L 100.0100, L500.4050, L504.2610 #### [facility] [address] [place], [address] Absolute Neut 5.1 X10 3/uL Normal 2.0-7.7 [facility] Comment on above: Performed By: #### L 100.0100, L500.4050, L504.2610 #### [facility] [address] [place], [address] Basophils/100 WBC (Bld) 0.6 % Normal 0-1 [facility] Comment on above: Performed By: #### L 100.0100, L500.4050, L504.2610 #### [facility] Laboratory [address] [place], [address] Eosinophils/100 WBC (Bld) 1.1 % Normal 0-5 [facility] Comment on above: Performed By: #### L 100.0100, L500.4050, L504.2610 #### [facility] Laboratory [address] [place], [address] Erythrocyte distribution width (RBC) [Ratio] 13.2 % Normal 11.6-14.6 [facility] Comment on above: Performed By: #### L 100.0100, L500.4050, L504.2610 #### [facility] Laboratory [address] [place], [address] Hematocrit (Bld) [Volume fraction] 36.5 % Low 37-47 [facility] Comment on above: Performed By: #### L 100.0100, L500.4050, L504.2610 #### [facility] Laboratory [address] [place], [address] Hemoglobin (Bld) [Mass/Vol] 12.5 g/dL Normal 12.0-15.0 [facility] Comment on above: Performed By: #### L 100.0100, L500.4050, L504.2610 #### [facility] Laboratory [address] [place], [address] IG% 0.400 Normal 0.0-0.9 [facility] Comment on above: Result Comment: IG% - Immature Granulocytes (promyelocytes, myelocytes and metamyelocytes) > 1% indicates that a LEFT SHIFT is Present. Performed By: #### L 100.0100, L500.4050, L504.2610 #### [facility] Laboratory [address] [place], [address] Lymphocytes/100 WBC (Bld) 25.3 % Normal 19-41 [facility] Comment on above: Performed By: #### L 100.0100, L500.4050, L504.2610 #### [facility] Laboratory [address] [place], [address] MCH (RBC) [Entitic mass] 30.4 pg Normal 27.0-32.0 [facility] Comment on above: Performed By: #### L 100.0100, L500.4050, L504.2610 #### [facility] Laboratory [address] [place], [address] MCHC (RBC) [Mass/Vol] 34.2 g/dL Normal 32-36 [facility] Comment on above: Performed By: #### L 100.0100, L500.4050, L504.2610 #### [facility] Laboratory [address] [place], [address] MCV (RBC) [Entitic vol] 88.8 fL Normal 81-99 [facility] Comment on above: Performed By: #### L 100.0100, L500.4050, L504.2610 #### [facility] Laboratory [address] [place], [address] Monocytes/100 WBC (Bld) 7.9 % Normal 0-10 [facility] Comment on above: Performed By: #### L 100.0100, L500.4050, L504.2610 #### [facility] Laboratory [address] [place], [address] Neutrophils/100 WBC (Bld) 64.7 % Normal 47-70 [facility] Comment on above: Performed By: #### L 100.0100, L500.4050, L504.2610 #### [facility] Laboratory [address] [place], [address] Nucleated RBC (Bld) [#/Vol] 0 10*3/uL Normal 0-5 [facility] Comment on above: Performed By: #### L 100.0100, L500.4050, L504.2610 #### [facility] Laboratory [address] [place], [address] Platelet mean volume (Bld) [Entitic vol] 9.5 fL Normal 6.2-12.0 [facility] Comment on above: Performed By: #### L 100.0100, L500.4050, L504.2610 #### [facility] Laboratory [address] [place], [address] Platelets (Bld) [#/Vol] 214 10*3/uL Normal 150-450 [facility] Comment on above: Performed By: #### L 100.0100, L500.4050, L504.2610 #### [facility] Laboratory [address] [place], [address] RBC (Bld) [#/Vol] 4.11 10*6/uL Low 4.2-5.4 [facility] Comment on above: Performed By: #### L 100.0100, L500.4050, L504.2610 #### [facility] Laboratory [address] [place], [address] RDW SD 43.0 fl Normal 35.1-43.9 [facility] Comment on above: Performed By: #### L 100.0100, L500.4050, L504.2610 #### [facility] Laboratory [address] [place], [address] WBC (Bld) [#/Vol] 7.8 10*3/uL Normal 4.4-11.0 [facility] Comment on above: Performed By: #### L 100.0100, L500.4050, L504.2610 #### [facility] Laboratory [address] [place], [address] Comprehensive Metabolic Prof [facility] 07-20-2024 Albumin [Mass/Vol] 3.9 g/dL Normal 3.2-5.0 [facility] Comment on above: Order Comment: 1 Performed By: #### L 500.4100, L506.0400, L501.9520, L506.1000, L100.0100, L500.4050 #### [facility] Laboratory [address] [place], [address] Albumin/Globulin [Mass ratio] 1.1 {ratio} Normal 0.9-2.4 [facility] Comment on above: Order Comment: 1 Performed By: #### L 500.4100, L506.0400, L501.9520, L506.1000, L100.0100, L500.4050 #### [facility] Laboratory [address] [place], [address] ALK P 65 U/L Normal 45-117 [facility] Comment on above: Order Comment: 1 Performed By: #### L 500.4100, L506.0400, L501.9520, L506.1000, L100.0100, L500.4050 #### [facility] Laboratory [address] [place], [address] ALT [Catalytic activity/Vol] 22 U/L Normal 13-56 [facility] Comment on above: Order Comment: 1 Performed By: #### L 500.4100, L506.0400, L501.9520, L506.1000, L100.0100, L500.4050 #### [facility] Laboratory [address] [place], [address] AST [Catalytic activity/Vol] 19 U/L Normal 15-37 [facility] Comment on above: Order Comment: 1 Performed By: #### L 500.4100, L506.0400, L501.9520, L506.1000, L100.0100, L500.4050 #### [facility] Laboratory [address] [place], [address] Bilirubin [Mass/Vol] 0.60 mg/dL Normal 0.20-1.00 [facility] Comment on above: Order Comment: 1 Result Comment: For patients on eltrombopag therapy, use of Dimension [place] TBIL is not recommended. Performed By: #### L 500.4100, L506.0400, L501.9520, L506.1000, L100.0100, L500.4050 #### [facility] Laboratory [address] [place], [address] BUN/CRE 28.5 RATIO High 10-20 [facility] Comment on above: Order Comment: 1 Performed By: #### L 500.4100, L506.0400, L501.9520, L506.1000, L100.0100, L500.4050 #### [facility] Laboratory [address] [place], [address] CA,Total 9.0 mg/dL Normal 8.5-10.1 [facility] Comment on above: Order Comment: 1 Performed By: #### L 500.4100, L506.0400, L501.9520, L506.1000, L100.0100, L500.4050 #### [facility] Laboratory [address] [place], [address] Chloride [Moles/Vol] 100 mmol/L Normal 98-107 [facility] Comment on above: Order Comment: 1 Performed By: #### L 500.4100, L506.0400, L501.9520, L506.1000, L100.0100, L500.4050 #### [facility] Laboratory [address] [place], [address] CO2 [Moles/Vol] 27.0 mmol/L Normal 21.0-32.0 [facility] Comment on above: Order Comment: 1 Performed By: #### L 500.4100, L506.0400, L501.9520, L506.1000, L100.0100, L500.4050 #### [facility] Laboratory [address] [place], [address] Creatinine [Mass/Vol] 0.98 mg/dL Normal 0.55-1.02 [facility] Comment on above: Order Comment: 1 Result Comment: The validity of the calculated GFR GFRAA in patients over 70 years has not been determined. Clinical correlation is essential. Performed By: #### L 500.4100, L506.0400, L501.9520, L506.1000, L100.0100, L500.4050 #### [facility] Laboratory [address] [place], [address] ECRCL 50.32 ml/min Normal [facility] Comment on above: Order Comment: 1 Performed By: #### L 500.4100, L506.0400, L501.9520, L506.1000, L100.0100, L500.4050 #### [facility] Laboratory [address] [place], [address] EST GFR - AA 72 mL/min Normal >60 [facility] Comment on above: Order Comment: 1 Result Comment: Afri can Haitian GFR Calc Performed By: #### L 500.4100, L506.0400, L501.9520, L506.1000, L100.0100, L500.4050 #### [facility] Laboratory [address] [place], [address] GAP 8 Normal 5-15 [facility] Comment on above: Order Comment: 1 Performed By: #### L 500.4100, L506.0400, L501.9520, L506.1000, L100.0100, L500.4050 #### [facility] Laboratory [address] [place], [address] GFR/1.73 sq M.predicted among non-blacks MDRD (S/P/Bld) [Vol rate/Area] 59 mL/min/{1.73_m2} Low >60 [facility] Comment on above: Order Comment: 1 Result Comment: Non- GFR Calc Performed By: #### L 500.4100, L506.0400, L501.9520, L506.1000, L100.0100, L500.4050 #### [facility] Laboratory [address] [place], [address] Globulin (S) [Mass/Vol] 3.5 g/dL Normal 2.2-4.2 [facility] Comment on above: Order Comment: 1 Performed By: #### L 500.4100, L506.0400, L501.9520, L506.1000, L100.0100, L500.4050 #### [facility] Laboratory [address] [place], [address] Glucose [Mass/Vol] 107 mg/dL High 74-106 [facility] Comment on above: Order Comment: 1 Result Comment: Fast ing Glucose result from 100 to 125 mg/dL suggests IMPAIRED HOMEOSTASIS per A.D.A. criteria. Performed By: #### L 500.4100, L506.0400, L501.9520, L506.1000, L100.0100, L500.4050 #### [facility] Laboratory [address] [place], [address] Potassium [Moles/Vol] 3.6 mmol/L Normal 3.5-5.1 [facility] Comment on above: Order Comment: 1 Performed By: #### L 500.4100, L506.0400, L501.9520, L506.1000, L100.0100, L500.4050 #### [facility] Laboratory [address] [place], [address] Sodium [Moles/Vol] 135 mmol/L Low 136-145 [facility] Comment on above: Order Comment: 1 Performed By: #### L 500.4100, L506.0400, L501.9520, L506.1000, L100.0100, L500.4050 #### [facility] Laboratory [address] [place], [address] T PROT 7.4 g/dL Normal 6.4-8.2 [facility] Comment on above: Order Comment: 1 Performed By: #### L 500.4100, L506.0400, L501.9520, L506.1000, L100.0100, L500.4050 #### [facility] Laboratory [address] [place], [address] Urea nitrogen [Mass/Vol] 28 mg/dL High 7-18 [facility] Comment on above: Order Comment: 1 Performed By: #### L 500.4100, L506.0400, L501.9520, L506.1000, L100.0100, L500.4050 #### [facility] Laboratory [address] [place], [address] [facility] 07-20-2024 LDH 206 U/L Normal 84-246 [facility] Comment on above: Order Comment: 1 Performed By: #### L 500.4100, L506.0400, L501.9520, L506.1000, L100.0100, L500.4050 #### [facility] Laboratory [address] [place], [address] Oncology Visit Reporton 06-22 Oncology Visit Report [facility] [place] [facility] [address] [place] [address] OFFICE VISIT Date of Service: 07/20/24 1448 MR#: [id number] Acct: [id number] Name: RAO PANTOJA Rep #: [id number] : 1950 From: Donnie Heck MD Age/Sex: 73/F Location: [facility] Status: Signed HPI Subjective Date of Service 07/20/24 Chief Complaint F/u for Left breast cancer History of Present Illness 73-year-old woman was diagnosed with 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 She had left modified radical mastectomy with axillary dissection followed by 6 cycles of CMF which was completed on November 21, 2002. She was found to have positive germline mutation BRCA 2 6580 del GT on April 08, 2006. She went on to have prophylactic BSO and hysterectomy. She is on observation. Comes in for follow up. Feels well. [facility] Medical History Wears glasses Cancer Arthritis Thyroid disease Syncope Non-smoker FLACO (obstructive sleep apnea) Essential (primary) hypertension Hypothyroid Bhatia's neuroma Sleep apnea Osteopenia Anxiety and depression Breast cancer, left Surgical History Hx of colonoscopy History of dilation and curettage History of tonsillectomy History of mastectomy History of hysterectomy Family History Father Heart disease Dementia Colon polyps Social History household members: other details: current occupational status: retired Smoking Status: Never smoker Intake Vital Signs 10/13/23 08:49 10/31/24 14:48 Height 5 ft 3 in 5 ft 3 in Weight: 68.181 kg BMI 26.6 BP 154/79 H Blood Pressure Location Rt brachial Position Sitting Respiration 18 Pulse 65 Pulse Source Monitor Temp 98.7 F Temperature Source Temporal Artery Pulse Oximetry (%) 99 Oxygen Delivery Method room air Intake Is patient in pain?: No Allergies nickel Allergy (Severe, Verified 07/20/24 14:56) Rash propoxyphene (From Darvocet-N 100) Allergy (Verified 07/20/24 14:56) Vomiting Medications ???Medication ???Instructions ???Recorded ???Confirmed ???Type calcium carbonate 500 mg PO DAILY 12/16/16 07/20/24 History multivitamin (Multiple Vitamins 1 ea PO DAILY 12/16/16 07/20/24 History tablet) levothyroxine 75 mcg tablet 88 mcg PO DAILY 07/20/23 07/20/24 History coenzyme Q10 100 mg capsule (Co 100 mg PO DAILY 09/02/23 07/20/24 History Q-10) melatonin 10 mg capsule 10 mg PO HS PRN sleep 09/02/23 07/20/24 History vitamin D3 25 mcg (1,000 unit)-vit 1 tab PO DAILY 10/07/23 07/20/24 History K2 90 mcg disintegrating tablet (D3 Plus K2 Dots) lisinopril 20 1 tab PO QDAY 07/20/24 07/20/24 History mg-hydrochlorothiazi de 12.5 mg tablet Have you fallen in the past year?: Yes Central Venous Access Central Venous Access: No 06/21/2024 MRI reviewed. MRI/Breast Bilateral W/O and W IMPRESSION: Left mastectomy with no abnormality in the remaining soft tissues. No abnormality of the right breast. Exam Physical Exam Const alert, oriented x3 and no apparent distress General Appearance: cooperative HEENT normocephalic and head/scalp atraumatic Eyes no scleral icterus Neck supple Lymph Lymphatic: no lymphadenopathy noted Chest inspection of chest normal Chest Narrative: R breast normal. L mastectomy scar. 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 MRI R breast on 06/21/2024 is negative. Plan: To continue observation. (2) History of left breast cancer: Status: Chronic Comment: No evidence of disease clinically. Plan: To continue observation. Plan Details Follow Up: 12 Months Clinical Quality Measures Falls Risk Screening/Assistive Devices Have you fallen in the past year?: Yes 07/20/24 1517 Date Donnie Heck MD (more content not included)... Normal [facility] Breast Bilateral W/O and Won 06-21-2024 Breast Bilateral W/O and W [facility] Imaging Services [address] [place] [address] Breast Bilateral W/O and W MR#: [id number] Acct: [id number] Name: RAO PANTOJA Rep #: [id number] : 1950 F 73 From: Jose Manuel Christensen MD PCP: ESME Etienne Status: [facility] Study: Breast Bilateral W/O and W Date of Exam: 06/21 Exam# [id number] Ordering Dr: Donnie Heck MD [id number] STUDY: BILATERAL BREAST MR WITHOUT AND WITH CONTRAST REASON FOR EXAM: Female, 73 years old. BRCA2 gene positive mutation. Follow-up. Status post left mastectomy. TECHNIQUE: Multi-sequence multi-echo imaging of both breasts was performed with a dedicated breast coil. T1-weighted and T2-weighted images were performed before the administration of contrast. T1-weighted images were also performed after the intravenous administration of 13 cc of Clariscan contrast. COMPARISON: Prior breast MRI studies dated July 12, 2023, July 09, 2022 and July 07, 2021 FINDINGS: RIGHT BREAST: The breast tissue is scattered fibroglandular densities with no background enhancement. There are no abnormal enhancing masses or areas of non-mass enhancement in the right breast. LEFT BREAST: Left mastectomy. No enhancing masses in the residual soft tissues. There are no enlarged or abnormal lymph nodes. There is no abnormality in the visualized regions of the chest or liver. MRI/Breast Bilateral W/O and W IMPRESSION: Left mastectomy with no abnormality in the remaining soft tissues. No abnormality of the right breast. CATEGORY: BIRADS Category 2: Benign. A letter regarding these results will be sent to the patient by the facility within 30 days. Electronically Signed: Jose Manuel Christensen MD at 9:37 EDT , CC: ES[facility] Ga; Dr. Donnie Heck MD Senior Php Software Developer: Signed Normal [facility] CREATININE FINGERSTICKon CREATININE WB < 1.0 Normal 0.55-1.02 [facility] Comment on above: Performed By: #### L 9100.0200 #### [facility] Laboratory [address] [place], [address] EGFR WB > 60.0000 Normal >60 [facility] Comment on above: Performed By: #### L 9100.0200 #### [facility] Laboratory [address] [place], [address] Absolute lymphocyte countOrd ered By: Alma Rosa Ga on 08-23-2023 Lymphocytes Auto (Unsp spec) [#/Vol] 1.35 10*3/uL 0.83-4.51 [facility] Basophil percentageOrdered B y: Alma Rosa Ga on 08-23-2023 Basophils/100 WBC (Bld) 0.8 % 0-1 [facility] Bilirubin [Mass/Vol] 0.50 mg/dL 0.20-1.00 [facility] Comment on above: For patients on eltr ombopag therapy, use of Dimension [place] TBIL is not recommended. Chloride [Moles/Vol] 103 mmol/L 98-107 [facility] Cholesterol [Mass/Vol] 219 mg/dL <200 [facility] Comment on above: <200 mg/dL Desirable 200-240 mg/dL Borderline >240 mg/dL High Risk Eosinophils/100 WBC (Bld) 0.3 % 0-5 [facility] Glucose [Mass/Vol] 134 mg/dL 74-106 [facility] Comment on above: Fasting Glucose resu lt greater than or equal to 126 mg/dL suggests DIABETES MELLITUS per A.D.A. criteria. Neutrophils (Bld) [#/Vol] 4.8 10*3/uL 2.0-7.7 [facility] Neutrophils/100 WBC (Bld) 72.3 % 47-70 [facility] Potassium [Moles/Vol] 4.1 mmol/L 3.5-5.1 [facility] Protein [Mass/Vol] 8.0 g/dL 6.4-8.2 [facility] Sodium [Moles/Vol] 137 mmol/L 136-145 [facility] Triglyceride [Mass/Vol] 95 mg/dL <199 [facility] Comment on above: The drugs N-Acetylcy steine and Metamizole may falsely depress this assay.Serum Triglycerides Reference Interval Normal <150 mg/dL Borderline high 150 - 199 mg/dL High 200 - 499 mg/dL Very High > or = 500 mg/dL WBC (Bld) [#/Vol] 6.6 10*3/uL 4.4-11.0 [facility] Blood erythrocytes count (nu mber/volume)Ordered By: Alma Rosa Ga on 08-23-2023 RBC (Bld) [#/Vol] 4.42 10*6/uL 4.2-5.4 [facility] Blood hemoglobin measurement (mass/volume)Ordered By: Alma Rosa Ga on 08-23-2023 Hemoglobin (Bld) [Mass/Vol] 13.4 g/dL 12.0-15.0 [facility] Blood lymphocytes/100 leukoc ytesOrdered By: Alma Rosasrinivas Ga on 08-23-2023 Lymphocytes/100 WBC (Bld) 20.5 % 19-41 [facility] Blood monocytes/100 leukocyt esOrdered By: Alma Rosasrinivas Ga on 08-23-2023 Monocytes/100 WBC (Bld) 5.8 % 0-10 [facility] Blood platelet mean volumeOr dered By: Alma Rosasrinivas Ga on 08-23-2023 Platelet mean volume (Bld) [Entitic vol] 10.2 fL 6.2-12.0 [facility] Determination of erythrocyte mean corpuscular volume (MCV)Ordered By: Alma Rosasrinivas Ga on 08-23-2023 MCV (RBC) [Entitic vol] 94.1 fL 81-99 [facility] Hematocrit Auto (Bld) [Volum e fraction]Ordered By: Alma Rosasrinivas Ga on 08-23-2023 Hematocrit (Bld) [Volume fraction] 41.6 % 37-47 [facility] Iron measurement (mass/mass) Ordered By: Alma Roassrinivas Ga on 08-23-2023 Iron (Unsp spec) [Mass/Mass] 71 ug/dL 50-170 [facility] Laboratory - Chemistry and C hemistry - challengeOrdered By: [place] Harmeet on 08-23-2023 ALP [Catalytic activity/Vol] 83 U/L 45-117 [facility] ALT [Catalytic activity/Vol] 25 U/L 13-56 [facility] CO2 [Moles/Vol] 25.0 mmol/L 21.0-32.0 [facility] Cobalamin (Vitamin B12) [Mass/Vol] 496 pg/mL 211-911 [facility] Free T4 [Mass/Vol] 1.44 ng/dL 0.76-1.46 [facility] Globulin (S) [Mass/Vol] 3.8 g/dL 2.2-4.2 [facility] Urea nitrogen/Creatinine [Mass ratio] 23.4 mg/mg 10-20 [facility] Laboratory - Hematology and Cell countsOrdered By: Alma Rosa Ga on 08-23-2023 Erythrocyte distribution width (RBC) [Entitic vol] 53.2 fL 35.1-43.9 [facility] Erythrocyte distribution width (RBC) [Ratio] 15.1 % 11.6-14.6 [facility] Immature granulocytes/100 WBC (Bld) 0.300 % 0.0-0.9 [facility] Comment on above: IG% - Immature Granu locytes (promyelocytes, myelocytes and metamyelocytes) > 1% indicates that a LEFT SHIFT is Present. MCH (RBC) [Entitic mass] 30.3 pg 27.0-32.0 [facility] Nucleated RBC/100 WBC (Bld) [Ratio] 0 % 0-5 [facility] MCHC Auto (RBC) [Mass/Vol]Or dered By: Alma Rosa Ga on 08-23-2023 MCHC (RBC) [Mass/Vol] 32.2 g/dL 32-36 [facility] No Panel InformationOrdered By: Alma Rosa Ga on 08-23-2023 Estimated GFR (MDRD) Amer 62 mL/min >60 [facility] Comment on above: GFR Calc Estimated GFR (MDRD) Non-Af Amer 51 mL/min >60 [facility] Comment on above: Non- GFR Calc Thyroid Stimulating Hormone (TSH) 0.42 uIU/mL 0.358-3.74 [facility] Vitamin D 25-Hydroxy 83.7 ng/mL [facility] Comment on above: Vitamin D 25(OH) Sta tus Range Deficiency <20 ng/mL (50nmol/L) Insufficiency 20 - 30 ng/mL (50 - 75 nmol/L) Sufficiency 30 - 100 ng/mL (75 - 250 nmol/L) Toxicity >100 ng/mL (>250 nmol/L) Platelets bldOrdered By: Anay Ga on 08-23-2023 Platelets (Bld) [#/Vol] 249 10*3/uL 150-450 [facility] Serum or plasma albumin gerald urement (mass/volume)Ordered By: Alma Rosa Ga on 08-23-2023 Albumin [Mass/Vol] 4.2 g/dL 3.2-5.0 [facility] Serum or plasma albumin/glob ulin mass ratioOrdered By: Alma Rosasrinivas Ga on 08-23-2023 Albumin/Globulin [Mass ratio] 1.1 {ratio} 0.9-2.4 [facility] Serum or plasma calcium gerald urement (mass/volume)Ordered By: Alma Rosa Ga on 08-23-2023 Calcium [Mass/Vol] 9.5 mg/dL 8.5-10.1 [facility] Serum or plasma cholesterol in HDL measurement (mass/volume)Ordered By: Alma Rosasrinivas Ga on 08-23-2023 Cholesterol in HDL [Mass/Vol] 54 mg/dL >40 [facility] Comment on above: The drugs N-Acetylcy steine and Metamizole may falsely depress this assay. Reference Range HDL <40 mg/dL Low HDL Cholesterol HDL >or= 60 mg/dL High HDL Cholesterol Serum or plasma cholesterol in VLDL measurement (mass/volume)Ordered By: [place] Harmeet on 08-23-2023 Cholesterol in VLDL [Mass/Vol] 19 mg/dL 5-40 [facility] Serum or plasma creatinine m easurement (mass/volume)Ordered By: Alma Rosa Ga on 08-23-2023 Creatinine [Mass/Vol] 1.11 mg/dL 0.55-1.02 [facility] Comment on above: The validity of the calculated GFR & GFRAA in patients over 70 years has not been determined. Clinical correlation is essential. Serum or plasma ferritin james surement (mass/volume)Ordered By: Alma Rosa Ga on 08-23-2023 Ferritin [Mass/Vol] 70 ng/mL 8-252 [facility] Serum or plasma low density lipoprotein (LDL) cholesterol measurement (mass/volume)Ordered By: Alma Rosasrinivas Ga on 08-23-2023 Cholesterol in LDL [Mass/Vol] 146 mg/dL 0-130 [facility] Serum or plasma urea nitroge n measurement (mass/volume)Ordered By: Alma Rosa Ga 08-23-2023 Urea nitrogen [Mass/Vol] 26 mg/dL 7-18 [facility] Thin prep Papanicolaou smear with manual screeningOrdered By: Alma Rosa Ga on 08-23-2023 Thin prep Papanicolaou smear with manual screening 20 U/L 15-37 [facility] Thin prep Papanicolaou smear with manual screening 9 5-15 [facility] Absolute lymphocyte countOrd ered By: Donnie Heck on 07-20-2023 Lymphocytes Auto (Unsp spec) [#/Vol] 2.07 10*3/uL 0.83-4.51 [facility] Basophil percentageOrdered B y: Donnie Heck on 07-20-2023 Basophils/100 WBC (Bld) 0.5 % 0-1 [facility] Bilirubin [Mass/Vol] 0.60 mg/dL 0.20-1.00 [facility] Comment on above: For patients on eltr ombopag therapy, use of Dimension [place] TBIL is not recommended. Chloride [Moles/Vol] 102 mmol/L 98-107 [facility] Eosinophils/100 WBC (Bld) 0.6 % 0-5 [facility] Glucose [Mass/Vol] 164 mg/dL 74-106 [facility] Comment on above: Fasting Glucose resu lt greater than or equal to 126 mg/dL suggests DIABETES MELLITUS per A.D.A. criteria. LDH [Catalytic activity/Vol] 282 U/L 84-246 [facility] Comment on above: Slight Hemolysis, Re sult may be falsely increased. Neutrophils (Bld) [#/Vol] 11.4 10*3/uL 2.0-7.7 [facility] Neutrophils/100 WBC (Bld) 78.3 % 47-70 [facility] Potassium [Moles/Vol] 4.1 mmol/L 3.5-5.1 [facility] Comment on above: Slight Hemolysis, Re sult may be falsely increased. Protein [Mass/Vol] 7.7 g/dL 6.4-8.2 [facility] Sodium [Moles/Vol] 134 mmol/L 136-145 [facility] WBC (Bld) [#/Vol] 14.5 10*3/uL 4.4-11.0 [facility] Blood erythrocytes count (nu mber/volume)Ordered By: Donnie Heck on 07-20-2023 RBC (Bld) [#/Vol] 4.31 10*6/uL 4.2-5.4 [facility] Blood hemoglobin measurement (mass/volume)Ordered By: Donnie Heck on 07-20-2023 Hemoglobin (Bld) [Mass/Vol] 13.1 g/dL 12.0-15.0 [facility] Blood lymphocytes/100 leukoc ytesOrdered By: Donnie Heck on 07-20-2023 Lymphocytes/100 WBC (Bld) 14.2 % 19-41 [facility] Blood monocytes/100 leukocyt esOrdered By: Donnie Heck on 07-20-2023 Monocytes/100 WBC (Bld) 4.1 % 0-10 [facility] Blood platelet mean volumeOr dered By: Donnie Heck on 07-20-2023 Platelet mean volume (Bld) [Entitic vol] 9.9 fL 6.2-12.0 [facility] Determination of erythrocyte mean corpuscular volume (MCV)Ordered By: Donnie Heck on 07-20-2023 MCV (RBC) [Entitic vol] 92.6 fL 81-99 [facility] Hematocrit Auto (Bld) [Volum e fraction]Ordered By: Donnie Heck on 07-20-2023 Hematocrit (Bld) [Volume fraction] 39.9 % 37-47 [facility] Laboratory - Chemistry and C hemistry - challengeOrdered By: Donnie Umang on 07-20-2023 ALP [Catalytic activity/Vol] 88 U/L 45-117 [facility] ALT [Catalytic activity/Vol] 39 U/L 13-56 [facility] CO2 [Moles/Vol] 27.0 mmol/L 21.0-32.0 [facility] Globulin (S) [Mass/Vol] 4.0 g/dL 2.2-4.2 [facility] Urea nitrogen/Creatinine [Mass ratio] 26.6 mg/mg 10-20 [facility] Laboratory - Hematology and Cell countsOrdered By: Donnie Heck on 07-20-2023 Erythrocyte distribution width (RBC) [Entitic vol] 52.4 fL 35.1-43.9 [facility] Erythrocyte distribution width (RBC) [Ratio] 15.9 % 11.6-14.6 [facility] Immature granulocytes/100 WBC (Bld) 2.300 % 0.0-0.9 [facility] Comment on above: IG% - Immature Granu locytes (promyelocytes, myelocytes and metamyelocytes) > 1% indicates that a LEFT SHIFT is Present. MCH (RBC) [Entitic mass] 30.4 pg 27.0-32.0 [facility] Nucleated RBC/100 WBC (Bld) [Ratio] 0 % 0-5 [facility] MCHC Auto (RBC) [Mass/Vol]Or dered By: Donnie Heck on 07-20-2023 MCHC (RBC) [Mass/Vol] 32.8 g/dL 32-36 [facility] No Panel InformationOrdered By: Donnie Heck on 07-20-2023 Estimated Creatinine Clearance Calc 33.35 ml/min [facility] Estimated GFR (MDRD) Amer 53 mL/min >60 [facility] Comment on above: GFR Calc Estimated GFR (MDRD) Non-Af Amer 44 mL/min >60 [facility] Comment on above: Non- GFR Calc Platelets bldOrdered By: Hubert Heck on 07-20-2023 Platelets (Bld) [#/Vol] 216 10*3/uL 150-450 [facility] Serum or plasma albumin gerald urement (mass/volume)Ordered By: Donnie Heck on 07-20-2023 Albumin [Mass/Vol] 3.7 g/dL 3.2-5.0 [facility] Serum or plasma albumin/glob ulin mass ratioOrdered By: Donnie Heck on 07-20-2023 Albumin/Globulin [Mass ratio] 0.9 {ratio} 0.9-2.4 [facility] Serum or plasma calcium gerald urement (mass/volume)Ordered By: Donnie Heck on 07-20-2023 Calcium [Mass/Vol] 8.9 mg/dL 8.5-10.1 [facility] Serum or plasma creatinine m easurement (mass/volume)Ordered By: Donnie Heck on 07-20-2023 Creatinine [Mass/Vol] 1.28 mg/dL 0.55-1.02 [facility] Comment on above: The validity of the calculated GFR & GFRAA in patients over 70 years has not been determined. Clinical correlation is essential. Serum or plasma urea nitroge n measurement (mass/volume)Ordered By: Donnie Heck on 07-20-2023 Urea nitrogen [Mass/Vol] 34 mg/dL 7-18 [facility] Thin prep Papanicolaou smear with manual screeningOrdered By: Donnie Heck on 07-20-2023 Thin prep Papanicolaou smear with manual screening 18 U/L 15-37 [facility] Comment on above: Slight Hemolysis, Re sult may be falsely increased. Thin prep Papanicolaou smear with manual screening 5 5-15 [facility] Basophil percentageOrdered B y: Summer Banda on 07-12-2023 Creatinine [Mass/Vol] 1.1 mg/dL 0.55-1.02 [facility] Laboratory - Chemistry and C hemistry - challengeOrdered By: Summer Banda on 07-12-2023 GFR/1.73 sq M.predicted among non-blacks MDRD (S/P/Bld) [Vol rate/Area] 54.0000 mL/min/{1.73_m2} >60 [facility] Absolute lymphocyte countOrd ered By: Alma Rosa Ga on 01-20-2023 Lymphocytes Auto (Unsp spec) [#/Vol] 1.37 10*3/uL 0.83-4.51 [facility] Basophil percentageOrdered B y: Alma Rosa Ga on 01-20-2023 Basophils/100 WBC (Bld) 0.6 % 0-1 [facility] Bilirubin [Mass/Vol] 0.80 mg/dL 0.20-1.00 [facility] Comment on above: For patients on eltr ombopag therapy, use of Dimension [place] TBIL is not recommended. Chloride [Moles/Vol] 107 mmol/L 98-107 [facility] Cholesterol [Mass/Vol] 226 mg/dL <200 [facility] Comment on above: <200 mg/dL Desirable 200-240 mg/dL Borderline >240 mg/dL High Risk Eosinophils/100 WBC (Bld) 1.5 % 0-5 [facility] Glucose [Mass/Vol] 110 mg/dL 74-106 [facility] Comment on above: Fasting Glucose resu lt from 100 to 125 mg/dL suggests IMPAIRED HOMEOSTASIS per A.D.A. criteria. Neutrophils (Bld) [#/Vol] 3.0 10*3/uL 2.0-7.7 [facility] Neutrophils/100 WBC (Bld) 61.5 % 47-70 [facility] Potassium [Moles/Vol] 4.2 mmol/L 3.5-5.1 [facility] Protein [Mass/Vol] 8.2 g/dL 6.4-8.2 [facility] Sodium [Moles/Vol] 140 mmol/L 136-145 [facility] Triglyceride [Mass/Vol] 108 mg/dL <199 [facility] Comment on above: The drugs N-Acetylcy steine and Metamizole may falsely depress this assay.Serum Triglycerides Reference Interval Normal <150 mg/dL Borderline high 150 - 199 mg/dL High 200 - 499 mg/dL Very High > or = 500 mg/dL WBC (Bld) [#/Vol] 4.8 10*3/uL 4.4-11.0 [facility] Blood erythrocytes count (nu mber/volume)Ordered By: Alma Rosa Ga on 01-20-2023 RBC (Bld) [#/Vol] 4.57 10*6/uL 4.2-5.4 [facility] Blood hemoglobin measurement (mass/volume)Ordered By: Alma Rosa Ga on 01-20-2023 Hemoglobin (Bld) [Mass/Vol] 13.4 g/dL 12.0-15.0 [facility] Blood lymphocytes/100 leukoc ytesOrdered By: Alma Rosa Ga on 01-20-2023 Lymphocytes/100 WBC (Bld) 28.5 % 19-41 [facility] Blood monocytes/100 leukocyt esOrdered By: Alma Rosa Ga on 01-20-2023 Monocytes/100 WBC (Bld) 7.7 % 0-10 [facility] Blood platelet mean volumeOr dered By: Alma Rosa Ga on 01-20-2023 Platelet mean volume (Bld) [Entitic vol] 10.2 fL 6.2-12.0 [facility] Determination of erythrocyte mean corpuscular volume (MCV)Ordered By: Alma Rosa Ga on 01-20-2023 MCV (RBC) [Entitic vol] 89.7 fL 81-99 [facility] Hematocrit Auto (Bld) [Volum e fraction]Ordered By: Alma Rosa Ga on 01-20-2023 Hematocrit (Bld) [Volume fraction] 41.0 % 37-47 [facility] Laboratory - Chemistry and C hemistry - challengeOrdered By: Alma Rosa Ga on 01-20-2023 ALP [Catalytic activity/Vol] 77 U/L 45-117 [facility] ALT [Catalytic activity/Vol] 26 U/L 13-56 [facility] CO2 [Moles/Vol] 24.0 mmol/L 21.0-32.0 [facility] Free T4 [Mass/Vol] 1.55 ng/dL 0.76-1.46 [facility] Globulin (S) [Mass/Vol] 3.9 g/dL 2.2-4.2 [facility] Urea nitrogen/Creatinine [Mass ratio] 21.6 mg/mg 10-20 [facility] Laboratory - Hematology and Cell countsOrdered By: Alma Rosa Ga on 01-20-2023 Erythrocyte distribution width (RBC) [Entitic vol] 44.3 fL 35.1-43.9 [facility] Erythrocyte distribution width (RBC) [Ratio] 13.6 % 11.6-14.6 [facility] Immature granulocytes/100 WBC (Bld) 0.200 % 0.0-0.9 [facility] Comment on above: IG% - Immature Granu locytes (promyelocytes, myelocytes and metamyelocytes) > 1% indicates that a LEFT SHIFT is Present. MCH (RBC) [Entitic mass] 29.3 pg 27.0-32.0 [facility] Nucleated RBC/100 WBC (Bld) [Ratio] 0 % 0-5 [facility] MCHC Auto (RBC) [Mass/Vol]Or dered By: Alma Rosa Ga on 01-20-2023 MCHC (RBC) [Mass/Vol] 32.7 g/dL 32-36 [facility] No Panel InformationOrdered By: Alma Rosa Ga on 01-20-2023 Estimated GFR (MDRD) Amer 62 mL/min >60 [facility] Comment on above: GFR Calc Estimated GFR (MDRD) Non-Af Amer 52 mL/min >60 [facility] Comment on above: Non- GFR Calc Thyroid Stimulating Hormone (TSH) 0.67 uIU/mL 0.358-3.74 [facility] Vitamin D 25-Hydroxy 78.8 ng/mL [facility] Comment on above: Vitamin D 25(OH) Sta tus Range Deficiency <20 ng/mL (50nmol/L) Insufficiency 20 - 30 ng/mL (50 - 75 nmol/L) Sufficiency 30 - 100 ng/mL (75 - 250 nmol/L) Toxicity >100 ng/mL (>250 nmol/L) Platelets bldOrdered By: Anay Ga on 01-20-2023 Platelets (Bld) [#/Vol] 234 10*3/uL 150-450 [facility] Serum or plasma albumin gerald urement (mass/volume)Ordered By: Alma Rosa Ga on 01-20-2023 Albumin [Mass/Vol] 4.3 g/dL 3.2-5.0 [facility] Serum or plasma albumin/glob ulin mass ratioOrdered By: Alma Rosa Ga on 01-20-2023 Albumin/Globulin [Mass ratio] 1.1 {ratio} 0.9-2.4 [facility] Serum or plasma calcium gerald urement (mass/volume)Ordered By: Alma Rosa Ga on 01-20-2023 Calcium [Mass/Vol] 9.6 mg/dL 8.5-10.1 [facility] Serum or plasma cholesterol in HDL measurement (mass/volume)Ordered By: Alma Rosa Ga on 01-20-2023 Cholesterol in HDL [Mass/Vol] 49 mg/dL >40 [facility] Comment on above: The drugs N-Acetylcy steine and Metamizole may falsely depress this assay. Reference Range HDL <40 mg/dL Low HDL Cholesterol HDL >or= 60 mg/dL High HDL Cholesterol Serum or plasma cholesterol in VLDL measurement (mass/volume)Ordered By: Alma Rosa Ga on 01-20-2023 Cholesterol in VLDL [Mass/Vol] 22 mg/dL 5-40 [facility] Serum or plasma creatinine m easurement (mass/volume)Ordered By: Alma Rosa Ga on 01-20-2023 Creatinine [Mass/Vol] 1.11 mg/dL 0.55-1.02 [facility] Comment on above: The validity of the calculated GFR & GFRAA in patients over 70 years has not been determined. Clinical correlation is essential. Serum or plasma low density lipoprotein (LDL) cholesterol measurement (mass/volume)Ordered By: Alma Rosasrinivas Ga on 01-20-2023 Cholesterol in LDL [Mass/Vol] 155 mg/dL 0-130 [facility] Serum or plasma urea nitroge n measurement (mass/volume)Ordered By: Alma Rosa Ga on 01-20-2023 Urea nitrogen [Mass/Vol] 24 mg/dL 7-18 [facility] Thin prep Papanicolaou smear with manual screeningOrdered By: [place] Harmeet on 01-20-2023 Thin prep Papanicolaou smear with manual screening 22 U/L 15-37 [facility] Thin prep Papanicolaou smear with manual screening 9 5-15 [facility] Basophil percentageon 2021 Basophil percentage < 0.9 mg/dL 0.55-1.02 [facility] Work Phone: No Panel Informationon 07-09 Bedside Estimated GFR (eGFR) > 60.0000 mL/min >60 [facility] Work Phone: COVID-19, MOLECULARon 2020 SARS-CoV-2 (COVID-19) Ab IA Ql Detected Abnormal Not Detected [facility] Comment on above: Result Comment: This test was performed under the FDA's Emergency Use Authorization (EUA). Testing was performed using the [employer] ID NOW COVID-19 assay on the ID NOW platform. This test has not been approved for use in asymptomatic patients and its performance in this patient population has not been evaluated. Negative results do not rule out the presence of SARS-CoV-2/COVID-19. Fact sheets for the EUA can be found at the following links: For Healthcare Providers: https://www.fda.gov/media/911878/download For Patients: https://www.fda.gov/media/043270/download CT PULMONARY ARTERIESon 08-20 CT PULMONARY ARTERIES EXAMINATION: CT PULMONARY ARTERIES HISTORY: Injury/Trauma or Illness?:Illness/Oth er How long have you had these symptoms (acute/chronic)?:Acu tePulmonary embolism (PE) suspected, high prob COMPARISON: None. TECHNIQUE: CT angiography of the chest is performed after the uneventful administration of 75 mL of Isovue-370 intravenously. Coronal and sagittal MIP (maximum intensity projection) images were performed. Dose reduction techniques were achieved by using automated exposure control and/or adjustment of mA and/or kV according to patient size and/or use of iterative reconstruction technique. FINDINGS: There is adequate opacification of the pulmonary arteries. There is no evidence of pulmonary embolism. The central pulmonary arteries are normal in caliber. The ascending thoracic aorta mildly enlarged measuring 4.0 x 3.8 cm. The transverse and descending thoracic aorta are nonaneurysmal. No evidence of aortic dissection. The heart is top normal to mildly enlarged. There is no pleural or pericardial effusion identified. Postoperative changes of left mastectomy. No bulky lymphadenopathy identified within the chest. Limited images of the upper abdomen demonstrate at least two cysts within the upper left kidney, one of which measures 1.5 cm posterolaterally on image 97 and another measuring approximately 1.3 cm more anteriorly on image 101. There is a 0.4 cm nonobstructing calculus involving the upper to mid posterior left kidney on image 108. Images on lung windows demonstrate moderate peripherally oriented ill-defined parenchymal opacities which have a mid to lower lung zone predominance. The findings are compatible with COVID-19 pneumonia. There is no pneumothorax identified. The central airways are patent. Images on bone windows show no acute osseous abnormality. IMPRESSION: Moderate mid to lower lung zone predominant and peripherally oriented patchy ill-defined parenchymal opacities involving the lungs compatible with the COVID-19 pneumonia. No evidence of pulmonary embolism. No evidence of aortic dissection. Mild aneurysmal dilatation of the ascending thoracic aorta measuring 4.0 x 3.8 cm. No lymphadenopathy. Left renal cysts as well as a 0.4 cm calculus within the imaged mid to upper posterior left renal cortex. Postoperative changes of left mastectomy. [employer] Workstation ID: [id number] Dictated by: SAMI ELLIS on WedSep 04, 2021 9:32:51 AM EST Transcribed by: MENA FUENTES on WedSep 04, 2021 9:39:49 AM EST Finalized by: SAMI ELLIS on WedSep 04, 2021 2:18:52 PM EST Normal [facility] Comment on above: Order Comment: Injur y/Trauma or Illness?:Illness/Other How long have you had these symptoms (acute/chronic)?:Acute Reason for exam?:Pulmonary embolism (PE) suspected, high prob Type of Exam?:Initial Additional signs and symptoms?:sob Albumin Elph [Mass/Vol]on Albumin [Mass/Vol] 4.1 g/dL 2.9-4.4 [facility] Erythrocyte sedimentation ra devorah 07-10-2021 ESR (Bld) [Velocity] 18 mm/h 0-30 [facility] Interpretation of serum or p lasma protein pattern by immunofixation (narrative resulton 07-10-2021 Protein Fractions Immunofixation Nam [Interp] See comment [facility] Comment on above: Result: Not Observed No Panel Informationon 07-10 Addendum Document Comment . [facility] Comment on above: Protein electrophore sis scan will follow via computer,mail, or bat lathe operator delivery. Free Lambda Light Chains, Quant 15.3 mg/L 5.7-26.3 [facility] Serum [id number] measu rement by electrophoresison 07-10-2021 Alpha 1 globulin Elph [Mass/Vol] 0.2 g/dL 0.0-0.4 [facility] Alpha 1 globulin Elph [Mass/Vol] 0.9 g/dL 0.4-1.0 [facility] Serum immunoglobulin kappa l ight chains/immunoglobulin lambda light chains mass ratioon 07-10-2021 Immunoglobulin light chains.kappa/Immunoglobul in light chains.lambda (S) [Mass ratio] 1.90 0.26-1.65 [facility] Comment on above: Performed at: - [address] [id number] Director: Basim Gongora PhD, Phone: [phone] Serum or plasma IgA measurem ent (mass/volume)on 07-10-2021 IgA [Mass/Vol] 186 mg/dL 87-352 [facility] Serum or plasma IgG measurem ent (mass/volume)on 07-10-2021 IgG [Mass/Vol] 1149 mg/dL [id number] [facility] Serum or plasma IgM measurem ent (mass/volume)on 07-10-2021 IgM [Mass/Vol] 159 mg/dL 26-217 [facility] Serum or plasma beta globuli n measurement by electrophoresis (mass/volume)on 07-10-2021 Beta globulin Elph [Mass/Vol] 1.1 g/dL 0.7-1.3 [facility] Serum or plasma gamma globul in measurement by electrophoresis (mass/volume)on 07-10-2021 Gamma globulin Elph [Mass/Vol] 1.3 g/dL 0.4-1.8 [facility] Serum or plasma immunoelectr ophoresis interpretation (nominal result)on 07-10-2021 Interpretation IEP [Interp] Comment: . [facility] Comment on above: JESSICA SHOWS ASYMMETRIC AL IGA SUGGESTIVE OF A MONOCLONAL PROTEIN. Serum or plasma immunoglobul in kappa light chains measurement (mass/volume)on 07-10-2021 Immunoglobulin light chains.kappa [Mass/Vol] 29.0 mg/L 3.3-19.4 [facility] Thin prep Papanicolaou smear with manual screeningon 07-10-2021 Thin prep Papanicolaou smear with manual screening 1.3 0.7-1.7 [facility] Total protein bloodon 2020 Protein [Mass/Vol] 7.5 g/dL 6.0-8.5 [facility] Erythrocyte distribution wid th standard deviationon 12-01-2018 Erythrocyte distribution width (RBC) [Entitic vol] 45.5 fL 35.1-43.9 [facility] Laboratory - Hematology and Cell countson 12-01-2018 Erythrocyte distribution width (RBC) [Ratio] 13.7 % 11.6-14.6 [facility] Total cell counton 9 Cells counted Molgen (Bld/Tiss) [#] Not Reportable [facility] Vitmain D,25 Hydroxyon 11-22 25-hydroxyvitamin D [Mass/Vol] 56.3 ng/mL 29.95-100.01 [facility] Comment on above: Vitamin D 25(OH) Sta tus Range Deficiency <20 ng/mL (50nmol/L) Insuffciency 20 - 30 ng/mL (50 - 75 nmol/L) Sufficiency 30 - 100 ng/mL (75 - 250 nmol/L) Toxicity >100 ng/mL (>250 nmol/L) Laboratory - Chemistry and C hemistry - challengeon 03-08-2017 Magnesium (Unsp spec) [Moles/Vol] 2.3 mg/dL 1.8-2.4 [facility] Serum or plasma uric acid me asurement (mass/volume)on 03-08-2017 Urate [Mass/Vol] 5.4 mg/dL 2.6-6.0 [facility] Comment on above: The drugs N-Acetylcy steine and Metamizole may falsely deress this assay. Vital Signs Date Time Vital Sign Value Performing Clinician Faci lity 10-13-2023 10:21-0500 Body temperature 98.6 [degF] DIRECTOR OF CATERING SALES[employer] Work Phone: [facility] [place] 10-13-2023 10:21-0500 Diastolic blood pressure 71 mm[Hg] DIRECTOR OF CATERING SALES-C Alma Rosa [employer] Work Phone: [facility] 10-13-2023 10:21-0500 Heart rate 67 /min DIRECTOR OF CATERING SALES-C [facility] Work Phone: [facility] 10-13-2023 10:21-0500 Respiratory rate 16 /min DIRECTOR OF CATERING SALES-[facility] [employer] Work Phone: [facility] 10-13-2023 10:21-0500 SaO2% (BldA) [Mass fraction] 97 % [facility]ERING [facility] Work Phone: [facility] 10-13-2023 10:21-0500 Systolic blood pressure 116 mm[Hg] DIRECTOR OF CATERING SALES-C [employer] Work Phone: [facility] 10-13-2023 08:49-0500 Body height 160.02 cm DIRECTOR OF CATERING SALES-C [facility] Work Phone: [facility] 10-13-2023 08:49-0500 Body mass index (BMI) [Ratio] 28.9 kg/m2 DIRECTOR OF CATERING SALES-C [facility] Work Phone: [facility] 10-13-2023 08:49-0500 Body weight 74 kg DIRECTOR OF CATERING SALES-C Alma Rosa [employer] Work Phone: [facility] 09-02-2023 11:41-0500 Body height 160.02 cm DIRECTOR OF [employer]ERING SALES-C Alma Rosa [employer] Work Phone: [facility] 09-02-2023 11:41-0500 Body mass index (BMI) [Ratio] 28.7 kg/m2 DIRECTOR OF [employer]ERING SALES-C Alma Rosa [employer] Work Phone: [facility] 09-02-2023 11:41-0500 Body weight 73.48 kg DIRECTOR OF CATERING SALES-C Alma Rosa [employer] Work Phone: [facility] 07-20-2023 11:24-0400 Body height 160.02 cm DIRECTOR OF CATERING SALES-C Alma Rosa [employer] Work Phone: [facility] 07-20-2023 11:24-0400 Body mass index (BMI) [Ratio] 29.2 kg/m2 DIRECTOR OF CATERING SALES-C Alma Rosa [employer] Work Phone: [facility] 07-20-2023 11:24-0400 Body temperature 98.7 [degF] DIRECTOR OF [employer]ERING SALES-C Alma Rosa [employer] Work Phone: [facility] 07-20-2023 11:24-0400 Body weight 74.98 kg DIRECTOR OF CATERING SALES-C Alma Rosa [employer] Work Phone: [facility] 07-20-2023 11:24-0400 Diastolic blood pressure 84 mm[Hg] DIRECTOR OF CATERING SALES-C Alma Rosa [employer] Work Phone: [facility] 07-20-2023 11:24-0400 Heart rate 68 /min DIRECTOR OF [employer]ING SALES-[employer] Alma Rosa [employer] Work Phone: [facility] 07-20-2023 11:24-0400 Respiratory rate 18 /min DIRECTOR OF [employer]ERING SALES-[employer] Alma Rosa [employer] Work Phone: [facility] 07-20-2023 11:24-0400 SaO2% (BldA) [Mass fraction] 97 % DIRECTOR OF [employer]ERING SALES-C Alma Rosa [employer] Work Phone: [facility] 07-20-2023 11:24-0400 Systolic blood pressure 191 mm[Hg] DIRECTOR OF CATERING SALES-C Alma Rosa [employer] Work Phone: [facility] 07-10-2020 13:50-0400 Body mass index (BMI) [Ratio] 25.4 kg/m2 DIRECTOR OF [employer]ING SALES-C Alma Rosa [employer] Work Phone: [facility] 07-10-2020 13:50-0400 Body temperature 97.3 [degF] DIRECTOR OF CATERING SALES-C Alma Rosa [employer] Work Phone: [facility] 07-10-2020 13:50-0400 Diastolic blood pressure 84 mm[Hg] DIRECTOR OF CATERING SALES-C Alma Rosa [employer] Work Phone: [facility] 07-10-2020 13:50-0400 Heart rate 61 /min DIRECTOR OF [employer]ING SALES-[employer] Alma Rosa [employer] Work Phone: [facility] 07-10-2020 13:50-0400 Respiratory rate 16 /min DIRECTOR OF CATERING SALES-C Alma Rosa [employer] Work Phone: [facility] 07-10-2020 13:50-0400 SaO2% (BldA) [Mass fraction] 100 % DIRECTOR OF [employer]ERING SALES-C Alma Rosa [employer] Work Phone: [facility] 07-10-2020 13:50-0400 Systolic blood pressure 180 mm[Hg] DIRECTOR OF CATERING SALES-C Alma Rosa [employer] Work Phone: [facility] Encounters Encounter Date Encounter Type Care Provider Facility Start: 02-19-2025 End: 02-19-2025 ambulatory Alma Rosa Harmeet DIRECTOR OF CATERING SALES-C Work Phone: [facility] Work Phone: Start: 02-19-2025 End: 02-19-2025 Patient encounter procedure Alma Rosa Ga DIRECTOR OF CATERING SALES-C -[facility] Work Phone: Start: 02-19-2025 End: 02-19-2025 ambulatory Alma Rosa Harmeet Facility:[facility] Start: 08-25-2024 End: 08-25-2024 ambulatory Alma Rosa Harmeet Facility:[facility] Start: 07-20-2024 Encounter for preprocedural laboratory examination Donnie Heck [facility] Start: 07-20-2024 End: 07-20-2024 ambulatory [facility]nie [facility] Facility:[facility] Start: 06-21-2024 End: 06-21-2024 ambulatory [facility] Facility:[facility] Start: 10-13-2023 Non-patient / Non-visit DIRECTOR OF CATERING SALES-C R achegiles Harmeet Work Phone: [facility] Start: 10-13-2023 End: 10-13-2023 Admission to same day surgery center DIRECTOR OF CATERING SALES-C Alma Rosa Harmeet Work Phone: [facility]-Endoscopy Work Phone: Start: 10-13-2023 End: 10-13-2023 ambulatory DIRECTOR OF CATERING SALES-C Alma Rosasrinivas Ga Work Phone: [facility] Work Phone: Start: 09-30-2023 End: 09-30-2023 ambulatory DIRECTOR OF CATERING SALES-C Alma Rosa Har[employer] Work Phone: [facility] Work Phone: Start: 09-30-2023 End: 09-30-2023 Patient encounter procedure DIRECTOR OF CATERING SALES-C Alma Rosa Har[employer] Work Phone: [facility]-Outpatient Bone Densitometry Work Phone: Start: 09-02-2023 Non-patient / Non-visit DIRECTOR OF CATERING SALES-C R achegiles Harmeet Work Phone: [facility] Work Phone: Start: 08-23-2023 End: 08-23-2023 ambulatory DIRECTOR OF CATERING SALES-C Alma Rosa Har[employer] Work Phone: [facility] Work Phone: Start: 08-23-2023 End: 08-23-2023 Patient encounter procedure DIRECTOR OF CATERING SALES-C Alma Rosa Ga Work Phone: [facility]-Ian [facility]ine [facility] Start: 07-20-2023 End: 07-20-2023 Patient encounter procedure DIRECTOR OF CATERING SALES-Wendy Ga Work Phone: [facility] Work Phone: Start: 07-20-2023 Registered Recurring DIRECTOR OF CATERING SALES-Wendy Ga Work Phone: [facility] Start: 07-12-2023 End: 07-12-2023 ambulatory [facility] Work Phone: Start: 07-12-2023 End: 07-12-2023 Patient encounter procedure [facility] Work Phone: Start: 01-20-2023 End: 01-20-2023 ambulatory [facility] Work Phone: Start: 01-20-2023 End: 01-20-2023 Patient encounter procedure [facility]Ian Devine [facility] Start: 07-09-2022 End: 07-09-2022 ambulatory [facility] Work Phone: Start: 07-09-2022 End: 07-09-2022 Patient encounter procedure [facility] Start: 09-04-2021 End: 09-07-2021 Evaluation and management of inpatient [facility] Start: 09-04-2021 End: 09-04-2021 Emergency department patient visit [facility] Start: 08-01-2015 ambulatory [facility] Procedures Date Procedure Procedure Detail Performing Clinician Start: 02-19-2025 Vitamin D, 25-hydrox y measurement Alma Rosa Ga DIRECTOR OF CATERING SALES-C Work Phone: Comment on above: Vitamin D StatusDefi ciency: <20 ng/mL (50nmol/L)Insufficiency: 20-30 ng/mL (50-75 nmol/L)Sufficiency: 30-100 ng/mL (75-250 nmol/L)Toxicity: >100 ng/mL (>250 nmol/L) Start: 10-13-2023 Colonoscopy DIRECTOR OF CATERING SALES-Wendy Ga Work Phone: Start: 09-30-2023 Dual energy X-ray absorptiometry [facility] Work Phone: Start: 07-12-2023 MRI of bilateral konrad asts with contrast Start: 07-09-2022 MRI of breast with contrast Plan of Treatment Date Care Activity Detail Author Start: 10-13-2023 Patient discharge [facility] Start: 06-02-2018 [facility] Colonoscopy [facility] MG Breast - right Screening [facility] MG Breast - right Screening [facility] MR Breast - unilater al WO and W contrast IV [facility] MR Breast - unilater al WO and W contrast IV [facility] Patient referral [facility] Work Phone: [facility] Payers Date Payer Category Payer Medicare [id number] 2016 Self-pay [id number] 2016 Unknown [id number] 2016 Medicare [id number] 2015 Unknown [id number] 1950 Unknown [id number] .. [id number] 1950 Unknown [id number] . [id number] Unknown MED [employer] [id number] Unknown [id number] [id number] Unknown [id number] [id number] Unknown [id number] [id number] [id number] Unknown [id number] [id number] [id number] Unknown [id number] [id number] [id number] Social History Date Type Detail Facility Start: 09-01-2021 End: 10-13-2023 Tobacco smoking status NHIS Unknown if ever smoked [facility] Start: 1950 Sex Assigned At Female W [facility] Start: 10-13-2023 Tobacco smoking stat us NHIS Never smoked tobacco (finding) [facility] Goals Date Patient Goal Desired Activity /State Mental Status Date Assessment Result Facility 10-13-2023 Cognitive function Voice/Name;Touch/Terranceki crystal [facility] Work Phone: Procedure note 10-13-2023 Note Date & Type Note Facility 10-13-2023 Procedure note [facility] Procedure note 10-13-2023 Note Date & Type Note Facility 10-13-2023 Procedure note [facility] Evaluation note Note Date & Type Note Facility Evaluation note No assessment information availa [facility] Work Phone: Evaluation note Note Date & Type Note Facility Evaluation note Diagnosis Onset Date 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 History of left breast cancer chronic 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 History of left breast cancer chronic [facility] Work Phone: Evaluation note Note Date & Type Note Facility Evaluation note Diagnosis Onset Date 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 History of left breast cancer chronic 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 History of left breast cancer chronic Encounter for screening for malignant neoplasm of colon acute [facility] Work Phone: History and physical note Note Date & Type Note Facility History and physical note Note Date/Time October 13, 2023 8:50am [facility] Medical Records Department [address] [place] [address] History & Physical Exam 10/13/23 0849 MR#: [id number] Acct: [id number] Name: RAO PANTOJA Rep #:[id number] : 1950 72 From: Itzel Botello MD PCP: ESME Etienne [facility] Location: [place] [address] HPI - General General Date of Service: 10/13/23 HPI Narrative RAO PANTOJA, is a 72 F who presents for screening colonoscopy. patient's last colonoscopy was in 2012 negative per patient. Patient denies any chronic abdominal pain/nausea/vomiting/reflux. Patient has bowel movements daily deniesany blood. Patient denies any family history of colon cancer. [facility] Medical History (Updated 10/07/23 @ 14:41 by Haylee Dumont) Anxiety and depression Arthritis Breast cancer, left Cancer Essential (primary) hypertension Hypothyroid Bhatia's neuroma Non-smoker FLACO (obstructive sleep apnea) Osteopenia Sleep apnea Syncope Thyroid disease Wears glasses Home Medications calcium carbonate 500 mg calcium (1,250 mg) chewable tablet 500 mg PO DAILY 12/16/16 [History Last Taken Unknown] multivitamin (Multiple Vitamins tablet) 1 ea PO DAILY 12/16/16 [History Last Taken Unknown] lisinopril 10 mg tablet 20 mg PO DAILY 08/05/22 [History Last Taken 10/13/23] levothyroxine 75 mcg tablet 88 mcg PO DAILY 07/20/23 [History Last Taken 10/13/23] coenzyme Q10 100 mg capsule (Co Q-10) 100 mg PO DAILY 09/02/23 [History Last Taken Unknown] melatonin 10 mg capsule 10 mg PO HS PRN sleep 09/02/23 [History Last Taken Unknown] hydrochlorothiazide 12.5 mg capsule 12.5 mg PO DAILY 10/07/23 [History Last Taken 10/13/23] vitamin D3 25 mcg (1,000 unit)-vit K2 90 mcg disintegrating tablet (D3 Plus K2 Dots) 1 tab PO DAILY 10/07/23 [History Last Taken Unknown] Allergy/AdvReac Type Severity Reaction Status Date / Time nickel Allergy Severe Rash Verified 10/13/23 08:46 propoxyphene Allergy Vomiting Verified 10/13/23 08:46 [From Suni-N 100] Family History (Updated 09/02/23 @ 11:35 by Lilliam Rosas) Father Heart disease Dementia Colon polyps Surgical History History of dilation and curettage History of hysterectomy History of mastectomy History of tonsillectomy Hx of colonoscopy Social History (Updated 09/02/23 @ 11:35 by Lilliam Rosas) household members: other details: current occupational status: retired Smoking Status: Never smoker Past Medical/Surgical History Planned Operation Planned Operative Procedure/s: CSCOPE Previous Hospitalizations/Surgeries HX Hospitalizations: No Any Problems With Anesthesia: No You/Your Family Experience Fever (Hyperthermia) With Anes: No Cholinesterase deficiency: No Cardiovascular Hx of Irregular Heartbeat and/or Afib: No Hx Heart Attack: No Hx Congestive Heart Failure: No Hx Hypertension: Yes (CONTROLLED WITH MED) Hx Pacemaker: No Respiratory Hx Chronic Obstructive Pulmonary Disease (COPD): No Hx Asthma: No Hx Emphysema: No Hx Sleep Apnea: Yes (USES MOUTH APPLIANCE) CPAP: No BIPAP: No Hx Respiratory Tract Infection/Cold (presently): No Result (for STOP score): Positive Smoking Status: Never smoker Gastrointestinal Hx Ulcer: No Neurological Hx Seizures: No Hx Head/Neck Injury: No Hx Headaches: No Hx Back Injury/Pain: No Does patient have nerve stimulator: No Allergies nickel Allergy (Severe, Verified 10/13/23 08:46) Rash propoxyphene [From Darvocet-N 100] Allergy (Verified 10/13/23 08:46) Vomiting Discharge Is Pt Admitted From a [facility], or a Long-Term: No After D/C, Where Do you Plan to Go: Return Home Physical Exam Const alert, oriented x3 and no apparent distress HEENT normocephalic and head/scalp atraumatic Resp normal respiratory effort Cardio regular rate GI soft to palpation and non-tender; Negative for non-distended Palpation: Negative for guarding Extremity no clubbing, cyanosis or edema Skin no rashes or lesions noted Neuro CN's II-XII intact bilaterally Psych mental status grossly normal Assessment & Plan Assessment/Plan (1) Encounter for screening for malignant neoplasm of colon: Surgery Risks - Colonoscopy I discussed with the patient the risks of the procedure: Yes Risks Include but are not Limited To: Risks include but are not limited to: Bleeding, perforation requiring further surgery, inability to complete colonoscopy requiring barium enema. 10/13/23 0843 <Electronically signed by Itzel Botello MD> Cosigner Signature (if applicable): CC: DIRECTOR OF CATERING SALESVeronika Ga; Dr. Itzel Botello MD~ Signed [facility] Work Phone: Reason for referral (narrative) Note Date & Type Note Facility Reason for referral (narrative) No reason for referral information available [facility] Work Phone: Summary Purpose Family History No Family History Records Found Relationship Condition Age at Onset Recorded Date/T dot father Cardiac disease Unknown Dementia Unknown Relationship Condition Age at Onset Recorded Date/T dot father Cardiac disease Unknown Dementia Unknown Polyp of colon Unknown Advance Directives No Advanced Directives Records Found Advance Directive Response Recorded Date/ Time Advance Directives Yes August 26, 2015 11:35am Living Will Yes September 01, 2 021 2:19pm Power of Die Stamping Press Operator Yes September 01, 2021 2:19pm Advance Directive Response Recorded Date/ Time Advance Directives Yes August 26, 2015 10:35am Living Will Yes September 01, 2 021 1:19pm Power of Die Stamping Press Operator Yes September 01, 2021 1:19pm Advance Directive Response Recorded Date/ Time Name of Medical Power of Die Stamping Press Operator ASHLEIGH PANTOJA October 07, 2023 2:33pm Advance Directives Yes August 26, 2015 10:35am Living Will Yes October 07 2:33pm Power of Die Stamping Press Operator Yes October 07, 2023 2:33pm Advance Directive Response Recorded Date/ Time Advance Directives Yes August 26, 2015 11:35am Chief Complaint and Reason for Visit Chief Complaint BREAST CANCER Chief Complaint CANCER OF LEFT BREAS T Chief Complaint CANCER OF LEFT BREAS T ONC/HEM 1YR LABS REVIEW MRI Reason for Visit BRCA2 gene mutation positive in female Cancer of left breast with BRCA2 gene mutation History of left breast cancer Cancer of left breast with BRCA2 gene mutation History of left breast cancer Chief Complaint CANCER OF LEFT BREAS T ONC/HEM 1YR LABS REVIEW MRI Amb Documentation Asymptomatic menopausal state Reason for Visit BRCA2 gene mutation positive in female Cancer of left breast with BRCA2 gene mutation History of left breast cancer Cancer of left breast with BRCA2 gene mutation History of left breast cancer Chief Complaint CANCER OF LEFT BREAS T ONC/HEM 1YR LABS REVIEW MRI Amb Documentation Asymptomatic menopausal state Reason for Visit BRCA2 gene mutation positive in female Cancer of left breast with BRCA2 gene mutation History of left breast cancer Cancer of left breast with BRCA2 gene mutation History of left breast cancer Encounter for screening for malignant neoplasm of colon Additional Source Comments INFORMATION SOURCE (unrecogn ized section and content) DATE CREATED AUTHOR 09/27/2021 [facility] DATE CREATED AUTHOR [facility] AT[facility] DATE CREATED AUTHOR AUTHOR'S ORGANIZ ATION 02/20/2024 [facility] DATE CREATED AUTHOR AUTHOR'S ORGANIZ ATION 02/24/2025 [facility] Goals (unrecognized section and content) Goals may be documented in a n alternate sectionGoals may be documented in an alternate sectionGoals may be documented in an alternate sectionGoals may be documented in an alternate sectionGoals may be documented in an alternate sectionGoals may be documented in an alternate section Care Teams (unrecognized sec tion and content) Team Status: Active Member Role Status Dates Dr. Isra Leach MD Family Provider Active Alma Rosa Ga DIRECTOR OF CATERING SALES-C Primary Care Provider Active Team Status: Inactive Member Role Status Dates Alma Rosa Ga NP-C Primary Care Provide r, Attending Provider, Referring Provider Active Team Status: Inactive Member Role Status Dates Alma Rosa Ga NP-C Primary Care Provider Active Summer Banda NP, DIRECTOR OF CATERING SALES-C Attending Provider, Referring Provider Active Team Status: Inactive Member Role Status Dates Alma Rosa Ga NP-C Primary Care Provider, Referring P rovider Active Dr. Donnie Heck MD Attending Provider Active Team Status: Active Member Role Status Dates Dr. Isra Leach MD Primary Care Provi jose, Family Provider, Referring Provider Active Summer Banda DIRECTOR OF CATERING SALES, DIRECTOR OF CATERING SALES-C Attending Provider Active Team Status: Inactive Member Role Status Dates Alma Rosa Ga NP-C Primary Care Provider, Attending P rovider Active Team Status: Active Member Role Status Dates Alma Rosa Ga NP-C Primary Care Provider Active [facility] Attending Provider Active Team Status: Active Member Role Status Dates Alma Rosa Ga NP-C Primary Care Provider, Referring P rovider Active Dr. Itzel Botello MD Attending Provider, Other Pro vider Active Team Status: Inactive Member Role Status Dates Alma Rosa Ga NP-C Primary Care Provider, Referring P rovider Active Dr. Itzel Botello MD Attending Provider Active Team Status: Inactive Member Role Status Dates Alma Rosa Ga NP-C Primary Care Provider Active Start: February 19, 2025 End: February 19, 2025 ESME Etienne Attending Provider Active art: February 19, 2025 End: February 19, 2025 ESME Etienne Referring Provider Active art: February 19, 2025 End: February 19, 2025 FOR RECORDS PERTAINING TO PATIENTS WHO ARE [...] BE BASED ON THE PRIMARY CLINICAL RECORDS. [facility] [employer] provides no warranty or guarantee of the accuracy or completeness of information in this document.
[2025-04-21 10:34] LABS: Anion Gap 14 (5-15); BUN 31 mg/dL (4-19); BUN/Creat Ratio 30.3 RATIO (10-20); Calcium,Total 8.8 mg/dL (7.6-11.0); Carbon Dioxide 19.3 mmol/L (21.0-32.0); Chloride 103 mmol/L (98-108); Estimated Creatinine Clearance 45.78 ml/min (50-250); Glucose 140 mg/dL (70-99); Potassium 3.7 mmol/L (3.3-5.1); Troponin T High Sensitivity 13 ng/L (<=14)
[2025-04-21 12:51] LABS: Troponin T High Sens 2 HR 13 ng/L (<=14)
== END 2025-04-21 13:24 | disposition home or self-care (01) ==
PROVIDERS: Emergency Provider Emergency Medicine; PCP Nurse Practitioner Family; Visit Provider Emergency Medicine
DX: Z52.008 Unspecified donor, other blood (principal); R55 Syncope and collapse; R42 Dizziness and giddiness; I10 Essential (primary) hypertension; E03.9 Hypothyroidism, unspecified; Z79.890 Hormone replacement therapy; Z79.899 Other long term (current) drug therapy; Z90.10 Acquired absence of unspecified breast and nipple; Z90.710 Acquired absence of both cervix and uterus; Z85.3 Personal history of malignant neoplasm of breast
CPT/HCPCS: 71046; 80048; 84484; 85025; 93005; 96360; 96361; 99285; A4216

== ENCOUNTER → 2025-06-22 | Outpatient (CLI) | payer MEDICARE, OTHER, SELFPAY ==
--- NOTE | 2025-06-22 10:30 | MRI_ITS ---
PROCEDURE: BREAST BILATERAL W/O AND W 06/22/2025 REASON FOR EXAM: BRCA POSITIVE BREAST CA TECHNIQUE: Procedure Code: [id number] Modality: MR Procedure: BREAST BILATERAL W/O AND W CONTRAST: 14 mL of IV Clariscan COMPARISON: MRI 06/21/2024, 07/12/2023, 07/09/2022 FINDINGS: TISSUE DENSITY: There are scattered areas of fibroglandular density. Background Parenchymal Enhancement: Minimal RIGHT Breast: No suspicious mass or non-mass enhancement. LEFT Breast: Postsurgical changes of left mastectomy. Otherwise, there are no suspicious enhancement in the postsurgical bed. Other Findings: No suspicious axillary or internal mammary lymph nodes. Visualized portions of the thoracic and abdominal viscera are unremarkable. MRI/Breast Bilateral W/O and W IMPRESSION: There is no MR evidence of malignancy. OVERALL FINAL ASSESSMENT BI-RADS 1: NEGATIVE RECOMMENDATION: Routine annual follow-up in 1 Year Reading Location: [id number]
== END | disposition home or self-care (01) ==
LOC: OPMRI 10:15
PROVIDERS: PCP Nurse Practitioner Family; Referring Provider Internal Medicine Medical Oncology; Visit Provider Internal Medicine Medical Oncology
DX: C50.912 Malignant neoplasm of unspecified site of left female breast (principal); Z15.01 Genetic susceptibility to malignant neoplasm of breast
CPT/HCPCS: 77049; A9575; A4216; C8908

== ENCOUNTER → 2025-08-27 | Outpatient (CLI) | payer MEDICARE, OTHER, SELFPAY ==
[2025-08-27 12:13] LABS: Hematocrit 40.2 % (37-47); Hemoglobin 13.5 g/dL (12.0-15.0); Immature Granulocytes Count 0.040 X10^3/uL (0.0-0.0); Mean Corp Hgb Conc 33.6 g/dL (32-36); Mean Corpuscular Volume 90.5 fL (81-99); Mean Platelet Vol. 10.2 fl (6.2-12.0); NRBC Flagged by Analyzer 0 % (0-5); Platelet Count 254 K/mm3 (150-450); RBC Distribution Width CV 13.2 % (11.6-14.6); RBC Distribution Width SD 43.0 fl (35.1-43.9); Red Blood Count 4.44 M/mm3 (4.2-5.4); White Blood Count 5.4 K/mm3 (4.4-11.0)
[2025-08-27 13:10] LABS: AST(SGOT) 25 U/L (<=31); Alanine Aminotransfer ALT/SGPT 17 U/L (<=34); Albumin, Serum 4.6 g/dL (3.4-4.8); Alkaline Phosphatase 72 U/L (35-104); Anion Gap 13 (5-15); BUN 31 mg/dL (4-19); BUN/Creat Ratio 31.9 RATIO (10-20); Calcium,Total 9.9 mg/dL (7.6-11.0); Carbon Dioxide 24.2 mmol/L (21.0-32.0); Chloride 99 mmol/L (98-108); Cholesterol 295 mg/dL (<=200); Globulin 3.0 g/dL (2.2-4.2); Glucose 114 mg/dL (70-99); Low Density Lipoprotein Calc. 229 mg/dL; Potassium 4.2 mmol/L (3.3-5.1); Triglycerides 70 mg/dL; Very Low Density Lipoprotein 14 mg/dL (5-40); Vitamin D,25 Hydroxy 83.3 ng/mL (30-100); cholesterol:hdl ratio screen 5.38
== END | disposition home or self-care (01) ==
LOC: BFHLAB 09:20
PROVIDERS: PCP Nurse Practitioner Family; Visit Provider Nurse Practitioner Family
DX: I10 Essential (primary) hypertension (principal); E03.9 Hypothyroidism, unspecified; E78.5 Hyperlipidemia, unspecified; E55.9 Vitamin D deficiency, unspecified; R73.01 Impaired fasting glucose
CPT/HCPCS: 36415; 80053; 80061; 82306; 83036; 84439; 84443; 85025